=== PATIENT | female | born 1995 | race Caucasian/White ===

== ENCOUNTER → 2018-02-21 | Outpatient (CLI) | payer MEDICAID ==
--- NOTE | 2018-02-21 12:50 | Diagnostic Imaging Report ---
INDICATION: 30 weeks gestation. TECHNIQUE: Multiple real-time grayscale images were obtained over the gravid uterus. COMPARISON: None. FINDINGS: There is a single living intrauterine in a cephalic presentation. There is a normal volume of amniotic fluid. The placenta is anterior. There is no previa. The anatomical survey is unremarkable. Heart rate is 129 beats per minute and regular. There are no adnexal masses. The biometry correlates with a gestational age of 33 weeks 0 days. There is a three-vessel cord and four-chamber heart. IMPRESSION: Single living intrauterine with sonographically estimated gestational age of 33 weeks 0 days and estimated date of confinement of April 11, 2018. Biometrical measurements are as follows: Biparietal 8.38 cm, age 33 weeks 6 days. Head circumference 30.32 cm, age 33 weeks 5 days. Abdominal circumference 27.64 cm, age 31 weeks 5 days. Femur length 6.26 cm, age 32 weeks 3 days. Sonographic estimate age: 33 weeks 0 days. Sonographic estimated date of delivery: 04/11/18. Estimated Weight: 1942 gm (+/- 284 gm). LMP percentile: 48%. heart rate: 129 beats per minute. number: 1 of 1. Dictated by: Dictated on workstation # [id number]
== END ==
LOC: RAD 09:54
PROVIDERS: ATTEND Obstetrics & Gynecology
DX: Z36.89 Encounter for other specified antenatal screening (principal); Z3A.33 33 weeks gestation of pregnancy
CPT/HCPCS: 76805

== ENCOUNTER → 2018-03-28 | Outpatient (CLI) | payer MEDICAID ==
--- NOTE | 2018-03-28 10:47 | Diagnostic Imaging Report ---
INDICATION: Gestational diabetes. TECHNIQUE: Multiple real-time grayscale images were obtained over the gravid uterus. COMPARISON: 03/03/2018. FINDINGS: There is a single live fetus in a cephalic presentation. heart rate is recorded at 152 beats per minute. Placenta is anterior. Amniotic fluid index is 11.5 cm. Biophysical profile score is normal at 8 out 8. Biometrical measurements are as follows: Biparietal 9.4 cm, age 38 weeks 3 days. Head circumference 34.17 cm, age 39 weeks 3 days. Abdominal circumference 33.09 cm, age 37 weeks 0 days. Femur length 7.07 cm, age 36 weeks 2 days. Sonographic estimate age: 37 weeks 6 days. Sonographic estimated date of delivery: 04/12/2018. Estimated Weight: 3151 gm (+/- 460 gm). LMP percentile: 62%. heart rate: 152 beats per minute. number: 1 of 1. IMPRESSION: Single live IUP at approximately 38 weeks gestational age demonstrating normal interval growth when compared with exam from 02/21/2018. Biophysical profile score is normal at 8 out of 8. Dictated by: Dictated on workstation # [id number]
== END ==
LOC: RAD 09:35
PROVIDERS: ATTEND Obstetrics & Gynecology
DX: O24.410 Gestational diabetes mellitus in pregnancy, diet controlled (principal); Z3A.38 38 weeks gestation of pregnancy
CPT/HCPCS: 76805; 76819

== ENCOUNTER → 2018-04-10 | Outpatient (CLI) | payer MEDICAID ==
--- NOTE | 2018-04-10 13:39 | Diagnostic Imaging Report ---
INDICATION: Gestational diabetes. TECHNIQUE: Multiple real-time grayscale images were obtained over the gravid uterus. COMPARISON: 02/21/2018, 03/28/2018 and 04/01/2018. FINDINGS: The previous biophysical profile score of 04/01/2018 noted a single live fetus in cephalic presentation. The biophysical profile score was 8 out of 8 and within normal limits. On this exam, the fetus is again visualized. The fetus remains in cephalic presentation. heart motion was noted and a rate of 155 bpm was recorded. The biophysical profile score is still 8 out of 8 and within normal limits. However, the amniotic fluid index is 7.35 cm (normal 8-22 cm). The reason for the mild oligohydramnios is not certain. IMPRESSION: 1. There is a single live fetus in cephalic presentation. 2. The biophysical profile score is 8 out of 8 and remains within normal limits. 3. Mild oligohydramnios has developed in the interval since the prior exam. Biometrical measurements are as follows: Biparietal 10.05 cm, age 41 weeks 3 days. Head circumference 35.51 cm, age 41 weeks 4 days. Abdominal circumference 32.41 cm, age 36 weeks 3 days. Femur length 7.42 cm, age 38 weeks 0 days. Sonographic estimate age: 39 weeks 3 days. Sonographic estimated date of delivery: 04/14/2018. Estimated Weight: 3331 gm (+/- 486 gm). LMP percentile: 43%. heart rate: 155 beats per minute. number: 1 of 1. Dictated by: Dictated on workstation # [id number]
== END ==
LOC: RAD 11:41
PROVIDERS: ATTEND Obstetrics & Gynecology
DX: O24.410 Gestational diabetes mellitus in pregnancy, diet controlled (principal); O41.03X0 Oligohydramnios, third trimester, not applicable or unspecified; O26.893 Other specified pregnancy related conditions, third trimester; M54.5 Low back pain; Z3A.39 39 weeks gestation of pregnancy
CPT/HCPCS: 76805; 76819

== ENCOUNTER 2018-04-15 02:05 | Inpatient (IN) | payer MEDICAID ==
[2018-04-15] VITALS (45 sets, daily range): BP systolic 90–137; BP diastolic 52–78
[~2018-04-15] VITALS: Ht 157.5 cm; Wt 94.8 kg
--- NOTE | 2018-04-15 07:46 | NUR ---
HETAL CARTY presented to unit via ambulatory from home accompanied by signifant other with c/o INDUCTION @ 39weeks. HETAL CARTY weighed, gowned, voided, and to bed. EFHM and TOCO applied, VS taken. HETAL CARTY oriented to bed controls, call light, TV, heat, and A/C controls.
--- OUTSIDE RECORDS SUMMARY | 2018-04-15 08:02 | XMS REPORT | CCD ---
Author Author YAZAN BOATENG Organization Unknown Address [address] [place], [place] [id number] Care Team Providers Care Retanner Name Role Phone WALTER HALL DO Attphys Vital Signs Vital Sign Value Unit Date/Time Recent/Initial? Weight Measured 203 lbs 08/24/2015 00:05 Initial VS Height 62 in 08/24/2015 00:05 Initial VS BMI (Body Mass Index) 37.13 kg/m^2 08/24/2015 00:05 Initial VS BSA (Body Surface Area) 2.01 m^2 08/24/2015 00:05 Initial VS BP Systolic 131 mmHg 08/24/2015 00:15 Initial VS BP Diastolic 84 mmHg 08/24/2015 00:15 Initial VS Respiratory Rate 16 bpm 08/24/2015 00:15 Initial VS Heart Rate 94 bpm 08/24/2015 00:15 Initial VS Body Temperature 96.8 degrees 08/24/2015 00:15 Initial VS O2 % BldC Oximetry 98 % 08/24/2015 21:00 Initial VS BP Systolic 136 mmHg 08/26/2015 14:15 Most Recent VS BP Diastolic 81 mmHg 08/26/2015 14:15 Most Recent VS Respiratory Rate 18 bpm 08/26/2015 14:15 Most Recent VS Heart Rate 99 bpm 08/26/2015 14:15 Most Recent VS O2 % BldC Oximetry 98 % 08/26/2015 14:15 Most Recent VS Body Temperature 98.1 degrees 08/26/2015 14:15 Most Recent VS Allergies Allergy Code Allergy Type Reaction Status No Known Drug Allergies 0 No known drug allergies Active Procedures Procedure Code Procedure Type Date Delivery of Products of Conception, External Approach [id number] ICD -10 PCS 08/24/2015 Division of Female Perineum, External Approach [id number] ICD-10 PCS 08/24/[address] 08/25/2015 TYPE AND SCREEN 32225350 SNOMED CT 08/24/2015 CBC W/ AUTO DIFF (RFLX MAN DIFF IF IND) 4310708 SNOMED CT 08/24/2015 ^CBC W/AUTO DIFF 6434508 SNOMED CT 08/24/2015 History of Immunizations Unknown or Not Available. Problems Problem Code Start Date Resolved Date Status Vaginal delivery 525451871 Active Results CBC W/ AUTO DIFF (RFLX MAN DIFF IF IND) - Collect Date/Time: 08/23/2015 23:45 Test Name Code Test Result Test Units Test Ref Range WBC 73950-5 13.4 TH/CMM L=4.5 H=10.8 RBC 789-8 4.00 ML/CMM L=4.20 H=5.40 HGB 718-7 11.3 G/DL L=12.0 H=16.0 HCT 4544-3 33.8 % L=37.0 H=47.0 MCV 85 FL L=81 H=99 MCH 28.3 PG L=27.0 H=33.0 MCHC 33.4 G/DL L=31.0 H=36.0 RDW SD 44 FL L=36 H=50 RDW CV 14.6 % L=0.0 H=14.8 MPV 9.7 FL L=9.3 H=12.5 PLT 777-3 323 TH/CMM L=130 H=440 NRBC# 0.00 TH/CMM L=0.00 H=0.00 NRBC% 0.0 /100WBC L=0.0 H=2.0 %NEUT 73.4 % %LYMP 19.7 % %MONO 5.3 % %EOS 0.7 % %BASO 0.2 % #NEUT 9.84 TH/CMM L=2.10 H=8.20 #LYMP 2.64 TH/CMM L=0.90 H=5.20 #MONO 0.71 TH/CMM L=0.16 H=1.00 #EOS 0.09 TH/CMM L=0.00 H=0.80 #BASO 0.03 TH/CMM L=0.00 H=0.20 MANUAL DIFF NOT IND N/A HEMOGRAM - Collect Date/Time: 08/25/2015 07:10 Test Name Code Test Result Test Units Test Ref Range WBC 82166-4 17.3 TH/CMM L=4.5 H=10.8 RBC 789-8 3.16 ML/CMM L=4.20 H=5.40 HGB 718-7 8.8 G/DL L=12.0 H=16.0 HCT 4544-3 27.1 % L=37.0 H=47.0 MCV 86 FL L=81 H=99 MCH 27.8 PG L=27.0 H=33.0 MCHC 32.5 G/DL L=31.0 H=36.0 RDW SD 46 FL L=36 H=50 RDW CV 14.7 % L=0.0 H=14.8 MPV 9.6 FL L=9.3 H=12.5 PLT 777-3 260 TH/CMM L=130 H=440 NRBC# 0.00 TH/CMM L=0.00 H=0.00 NRBC% 0.0 /100WBC L=0.0 H=2.0 TYPE AND SCREEN - Collect Date/Time: 08/23/2015 23:45 Test Name Code Test Result Test Units Test Ref Range ABO/Rh Type A Positive N/A Antibody Screen-Gel Negative N/A Active Medications Medication Code Dose Units Frequency Route Modification Start Date/Time PATIENT BEING DISCHARGED TODAY, EDUCATE 12764225748 1 EA PRN PO 08/26/2015 14:38 FERROUS SULFATE 325MG TABLET 401589 325 MG ACBID PO 08/25/2015 16:35 DERMOPLAST AEROSOL 33405601816 1 EA PRN TOPICAL 08/24/2015 16:35 DIPHENHYDRAMINE (BENADRYL) CAP : 25 MG 3932104 25 MG PRN PO 08/24/2015 16:35 DOCUSATE SODIUM 100 MG [COLACE] CAPSULE 1902256 100 MG PRN PO 08/24/2015 16:35 FLUVIRIN (INFLUENZA) VACCINE 0.5ML/DOSE 9727703 0.5 ML X1 IM 08/24/2015 16:35 IBUPROFEN (MOTRIN) TAB:800 MG 306380 800 MG Q8H PO 08/24/2015 16:35 LANOLIN HYDROUS GRX TOPICAL OINTMENT 556626 1 EA PRN TOPICAL 08/24/2015 16:35 MMR II VACCINE 0.5ML DOSE: 10VIALS/BX 423723 0.5 ML PRN SQ 08/24/2015 16:35 PERCOCET 5/325 MG TABLET (ROXICET) 7502383 1 TAB PRN PO 08/24/2015 16:35 TETANUS DIPHTH PERTUSSIS [ADACEL] VIAL 4059700 0.5 ML X1 IM 08/24/2015 16:35 TUCKS PADS (WITCH ZANE PADS) 00507861962 1 EA PRN TOPICAL 08/24/2015 16:35 ZOLPIDEM [AMBIEN] TABLET : 5 MG 146354 5 MG PRN PO 08/24/2015 16:35 NS + PITOCIN IV 500ML [PREDEFINED] 4420161 CONT IV 08/24/2015 00:14 ~~ NACL 0.9% 500 ML IV BAG (7983-03) 351283 500 ML ~~ OXYTOCIN [PITOCIN]: 10 UNITS/ML 8403652 30 UNITS LIDO 2% UROJECT 10 ML 6405993 1 EA X1 TOPICAL 08/24/2015 00:13 MAALOX EXTRA STRENGTH LIQUID: PER ML 631123 30 ML PRN PO 08/24/2015 00:13 METOCLOPRAMIDE [REGLAN] INJ: 10MG/2ML 935175 10 MG PRN IVP 08/24/2015 00:13 PROMETHAZINE [PHENERGAN] INJ 25 MG/ML 281086 6.25 MG PRN IVP 08/24/2015 00:13 TERBUTALINE [BRETHINE] INJ 1 MG/ML VIAL 588615 0.25 MG X1 SUB Q 08/24/2015 00:13 BUTORPHANOL [STADOL] INJ 2 MG/ML VIAL 8580632 1 MG PRN IVP 08/24/2015 00:12 MORPHINE INJ: 10MG/ML 1ML SYR (OR) 3608289 5 MG X1 IVP 08/24/2015 00:12 MORPHINE INJ: 10MG/ML 1ML SYR (OR) 7685108 5 MG X1 IM 08/24/2015 00:12 ONDANSETRON [ZOFRAN] INJ 4 MG/2 ML VIAL 8133823 4 MG PRN SIVP 08/24/2015 00:12 ZOLPIDEM [AMBIEN] TABLET : 5 MG 067980 5 MG PRN PO 08/24/2015 00:12 ACETAMINOPHEN [TYLENOL] TABS 325MG 699694 650 MG PRN PO 08/24/2015 00:11 LR 1000ML IV [PREDEFINED] 225995 CONT IV IV 08/24/2015 00:11 ~~ LR 1000 ML (7953) IV BAG 435560 3939 ML Medications Administered During Visit Medication Dose Units Frequency Route Date/ Time of Last Dose IBUPROFEN (MOTRIN) TAB:800 MG 800 MG Q8H PO 08/26/2015 14:22 FERROUS SULFATE 325MG TABLET 325 MG ACBID PO 08/26/2015 08:39 PERCOCET 5/325 MG TABLET (ROXICET) 1 TAB PRN PO 08/25/2015 02:24 Encounters Encounter Diagnosis Diagnosis Code Start Date Other immediate hemorrhage O721 08/24/2015 Social History Smoking Status Code Start Date End Date Never smoker [id number] Patient Decision Aids Unknown or Not Available. Discharge Instructions You were admitted to [facility] on 08/24/2015 00:03 with a principal diagnosis of Other immediate hemorrhage You had the following procedures done: Delivery of Products of Conception, External Approach Division of Female Perineum, External Approach You had the following tests done: CBC W/ AUTO DIFF (RFLX MAN DIFF IF IND) HEMOGRAM TYPE AND SCREEN You were discharged from [facility] on 08/26/2015 15:06 Should you have any questions prior to discharge, please contact a member of your healthcare team. If you have left the hospital and have any questions, please contact your primary care physician. DIET: REGULAR, Drink plenty of fluids, As tolerated, Increase fiber. Limit caffeinated beverages, Avoid alcohol. Eat high iron foods: grn vegs, red meats. HOME MEDICATION INSTRUCTIONS: Call doc before taking new or OTC meds. Continue taking your vitamins. BOWEL MOVEMENTS Stool softeners as needed, Avoid constipation. May take senokot, Milk of Magnesia. CONTROL Discuss with dr at 4-6 wk pp visit. EXERCISES-VAGINAL DELIVERY May resume in 1-2 weeks, Start slowly and increase. Post blues; Hormonal changes You may have emotional changes, You may be tearful. This shouldn't last more than 2-3 wks, Call physician if you are concerned. NOTIFY PHYSICIAN OF: Chills, fever, painful urination, foul- smelling vaginal discharge. bleeding more than a period, temperature is greater than 100.4. dizziness or fainting, Painful breasts, Red, hot and extremely HARD breasts. redness or drainage from incision, unrelieved pain with medication. nausea or vomiting, cough or shortness of breath. cramping or swelling of legs. RELEVANT CONTACT INFORMATION: [facility]: . FOLLOW-UP: Post visit: See in ___6___ wks, Call office for an appointment. TREATMENTS: Always keep incisional area dry & clean, Wash incision with soap and water. SPECIAL INSTRUCTIONS: If you have cold/canker sores:, do not kiss/nuzzle NB til lesions clear. DISCHARGED TO: Home. IMPORTANT: INSURE YOUR BABY! Provided info on need to insure baby!. SMOKING CESSATION: Smoking and second hand smoke is harmful, to your health. Smoking has been linked to cancer, cardiac disease, COPD, and asthma. For more information you can call:, 1-822-CUX-STOP, or 2-919-HLRF-[place]. A pamphlet on smoking was given to you, at admission. IF : Breastfeed on demand, Incr flds and cals to promote mlk prdctn. Avoid spicy/gas producing foods, Exprs milk every 3 -4 hrs if unable to BF. If breast engorgement occurs:, apply moist heat /massage/or icepacks. Wear supportive bra, Ensure areola latch 1-1.5 "past nipple. Observe for cracked and bleeding nipples. Use "soothies"for sore or cracked nipple. Use tea bags for sore or cracked nipples. Colostrum to nipples after each feed. ACTIVITIES: Refrain from smoking, Rest as possible. Limit walking,standing & stair climbing, No heavy lifting. Gradually resume normal activity. HYGIENE: May shower, Use roddy-bottle with Betasept:. after each urine and BM until flow stops. Change pads with each urination or BM. SEXUAL ACTIVITY Refrain from intercourse until pp exam. PATIENT PORTAL EDUCATION INFO PROVIDED? No...Please do so. PATIENT PORTAL DEMONSTRATION PERFORMED? No...Please do so. PERSONAL EFFECTS/VALUABLES SENT HOME: Yes. MODE OF TRANSPORTATION: Via wheelchair, to car. ACCOMPANIED BY: , placed in car seat. PATIENT/FAMILY UNDERSTANDS INSTRUCTIONS: Verbalizes. Chief Complaint and Reason For Visit Chief Complaint Date of Onset POSS LABOR Function Status Unknown or Not Available. Plan of Care Unknown or Not Available. Referral/Transition of Care Unknown or Not Available.
--- OUTSIDE RECORDS SUMMARY | 2018-04-15 08:02 | XMS REPORT | CCD ---
Author Author DOMINGO PATEL Unknown Address [address] [place] [address] Care Team Providers Care Torpedo Man Name Role Phone MODESTA DYER MD Attphys MODESTA DYER MD Prisurg Allergies Allergy Code Allergy Type Reaction Status No Known Drug Allergies 0 Drug allergy Active Active Medications Unknown or Not Available. Problems Problem Code Start Date Resolved Date Status Vaginal delivery 530353264 Active Procedures Procedure Code Procedure Type Date UA W/MICRO C&S IF IND 767293175 SNOMED CT 04/14/2016 CHLAMYDIA/GC AMPLIFIED DNA 263425549 SNOMED CT 04/14/2016 TEST URINE 882426189 SNOMED CT 04/14/2016 Results UA ROUTINE C&S IF IND - Collect Date/Time: 04/14/2016 04:29 Test Name Code Test Result Test Units Test Ref Range COLOR YELLOW N/A NL: YELLOW APPEARANCE HAZY N/A NL: CLEAR SPEC GRAV 1.025 N/A NL: 1.002 - 1.022 pH 6.5 N/A NL: 5 - 9 PROTEIN NEGATIVE N/A NL: NEGATIVE mg/dl GLUCOSE NEGATIVE N/A NL: NEGATIVE mg/dl KETONE 40 N/A NL: NEGATIVE mg/dl BILIRUBIN NEGATIVE N/A NL: NEGATIVE BLOOD NEGATIVE N/A NL: NEGATIVE NITRITE NEGATIVE N/A NL: NEGATIVE LEUK SCREEN NEGATIVE N/A NL: NEGATIVE MICRO INDICATED? NOT INDICATED N/A UA W/MICRO C&S IF IND - Collect Date/Time: 04/14/2016 04:29 Test Name Code Test Result Test Units Test Ref Range COLOR YELLOW N/A NL: YELLOW APPEARANCE HAZY N/A NL: CLEAR SPEC GRAV 1.025 N/A NL: 1.002 - 1.022 pH 6.5 N/A NL: 5 - 9 PROTEIN NEGATIVE N/A NL: NEGATIVE mg/dl GLUCOSE NEGATIVE N/A NL: NEGATIVE mg/dl KETONE 40 N/A NL: NEGATIVE mg/dl BILIRUBIN NEGATIVE N/A NL: NEGATIVE BLOOD NEGATIVE N/A NL: NEGATIVE NITRITE NEGATIVE N/A NL: NEGATIVE LEUK SCREEN NEGATIVE N/A NL: NEGATIVE WBC/HPF 0-5 N/A NL: NEGATIVE RBC/HPF RARE N/A NL: NEGATIVE CASTS/LPF NEGATIVE N/A NL: NEGATIVE CRYSTALS NEGATIVE N/A NL: NEGATIVE MUCOUS THRDS 3+++ N/A NL: NEGATIVE BACTERIA 1+ N/A NL: NEGATIVE EPITH CELLS 1+ SQUAMOUS N/A NL: NEGATIVE TRICHOMONAS NEGATIVE N/A NL: NEGATIVE YEAST NEGATIVE N/A NL: NEGATIVE CULT SET UP? NO N/A CHLAMYDIA/GC AMPLIFIED DNA - Collect Date/Time: 04/14/2016 04:40 Test Name Code Test Result Test Units Test Ref Range Neisseria Gonorrhoeae 11824-0 NEGATIVE N/A NEGATIVE Chlamydia Trachomatis 34284-1 NEGATIVE N/A NEGATIVE TEST URINE - Collect Date/Time: 04/14/2016 04:29 Test Name Code Test Result Test Units Test Ref Range TEST UR 2106-3 NEGATIVE N/A Function Status Unknown or Not Available. History of Immunizations Unknown or Not Available. Plan of Treatment Unknown or Not Available. Social History Smoking Status Code Start Date End Date Never smoker 900167050 Vital Signs Unknown or Not Available. Function Status Unknown or Not Available. Goals Unknown or Not Available. ASSESSMENTS Unknown or Not Available. Health Concerns Section Unknown or Not Available.
--- OUTSIDE RECORDS SUMMARY | 2018-04-15 08:02 | XMS REPORT | CCD ---
Author Author DOMINGO PATEL Unknown Address [address] [place], [place] [id number] Care Team Providers Care Manager Security Name Role Phone WALTER HALL DO Attphys [...] Delivery of Products of Conception, External Approach [id number] ICD -10 PCS 08/24/2015 Division of Female Perineum, External Approach [id number] ICD-10 PCS 08/24/[address] 08/25/2015 TYPE AND SCREEN 20250080 SNOMED CT 08/24/2015 CBC W/ AUTO DIFF (RFLX MAN DIFF IF IND) 0926913 SNOMED CT 08/24/2015 ^CBC W/AUTO DIFF 8478722 SNOMED CT 08/24/2015 History of Immunizations Unknown or Not Available. Problems Problem Code Start Date Resolved Date Status Vaginal delivery 826407331 Active Results CBC W/ AUTO DIFF (RFLX MAN DIFF IF IND) - Collect Date/Time: 08/23/2015 23:45 Test Name Code Test Result Test Units Test Ref Range WBC 36719-2 13.4 TH/CMM L=4.5 H=10.8 RBC 789-8 4.00 [...] Result Test Units Test Ref Range WBC 70272-0 17.3 TH/CMM L=4.5 H=10.8 RBC 789-8 3.16 [...] Start Date/Time PATIENT BEING DISCHARGED TODAY, EDUCATE 96643359176 1 EA PRN PO 08/26/2015 14:38 FERROUS SULFATE 325MG TABLET 427068 325 MG ACBID PO 08/25/2015 16:35 DERMOPLAST AEROSOL 80675240288 1 EA PRN TOPICAL 08/24/2015 16:35 DIPHENHYDRAMINE (BENADRYL) CAP : 25 MG 8852670 25 MG PRN PO 08/24/2015 16:35 DOCUSATE SODIUM 100 MG [COLACE] CAPSULE 6691499 100 MG PRN PO 08/24/2015 16:35 FLUVIRIN (INFLUENZA) VACCINE 0.5ML/DOSE 3439542 0.5 ML X1 IM 08/24/2015 16:35 IBUPROFEN (MOTRIN) TAB:800 MG 179306 800 MG Q8H PO 08/24/2015 16:35 LANOLIN HYDROUS GRX TOPICAL OINTMENT 545903 1 EA PRN TOPICAL 08/24/2015 16:35 MMR II VACCINE 0.5ML DOSE: 10VIALS/BX 202422 0.5 ML PRN SQ 08/24/2015 16:35 PERCOCET 5/325 MG TABLET (ROXICET) 7438534 1 TAB PRN PO 08/24/2015 16:35 TETANUS DIPHTH PERTUSSIS [ADACEL] VIAL 6919027 0.5 ML X1 IM 08/24/2015 16:35 TUCKS PADS (WITCH ZANE PADS) 77565199604 1 EA PRN TOPICAL 08/24/2015 16:35 ZOLPIDEM [AMBIEN] TABLET : 5 MG 882389 5 MG PRN PO 08/24/2015 16:35 NS + PITOCIN IV 500ML [PREDEFINED] 3592011 CONT IV 08/24/2015 00:14 ~~ NACL 0.9% 500 ML IV BAG (7983-03) 018686 500 ML ~~ OXYTOCIN [PITOCIN]: 10 UNITS/ML 7945275 30 UNITS LIDO 2% UROJECT 10 ML 1342513 1 EA X1 TOPICAL 08/24/2015 00:13 MAALOX EXTRA STRENGTH LIQUID: PER ML 494729 30 ML PRN PO 08/24/2015 00:13 METOCLOPRAMIDE [REGLAN] INJ: 10MG/2ML 205677 10 MG PRN IVP 08/24/2015 00:13 PROMETHAZINE [PHENERGAN] INJ 25 MG/ML 235478 6.25 MG PRN IVP 08/24/2015 00:13 TERBUTALINE [BRETHINE] INJ 1 MG/ML VIAL 304208 0.25 MG X1 SUB Q 08/24/2015 00:13 BUTORPHANOL [STADOL] INJ 2 MG/ML VIAL 6662088 1 MG PRN IVP 08/24/2015 00:12 MORPHINE INJ: 10MG/ML 1ML SYR (OR) 6387392 5 MG X1 IVP 08/24/2015 00:12 MORPHINE INJ: 10MG/ML 1ML SYR (OR) 1281164 5 MG X1 IM 08/24/2015 00:12 ONDANSETRON [ZOFRAN] INJ 4 MG/2 ML VIAL 3091766 4 MG PRN SIVP 08/24/2015 00:12 ZOLPIDEM [AMBIEN] TABLET : 5 MG 200088 5 MG PRN PO 08/24/2015 00:12 ACETAMINOPHEN [TYLENOL] TABS 325MG 181731 650 MG PRN PO 08/24/2015 00:11 LR 1000ML IV [PREDEFINED] 599591 CONT IV IV 08/24/2015 00:11 ~~ LR 1000 ML (7953) IV BAG 136435 6675 ML Medications Administered During Visit Medication Dose [...] Code Start Date End Date Never smoker [id number] Patient Decision Aids Unknown or Not Available. Discharge Instructions You were admitted to [facility] on 08/24/2015 00:03 with a principal diagnosis of Other immediate hemorrhage You had the following procedures done: Delivery of Products of Conception, External Approach Division of Female Perineum, External Approach You had the following tests done: CBC W/ AUTO DIFF (RFLX MAN DIFF IF IND) HEMOGRAM TYPE AND SCREEN You were discharged from [facility] on 08/26/2015 15:06 Should you have any [...] swelling of legs. RELEVANT CONTACT INFORMATION: [facility]: . FOLLOW-UP: Post visit: See in [...] asthma. For more information you can call:, 2-188-UBQ-STOP, or 5-110-RATT-[place]. A pamphlet on smoking was given to [...]
--- OUTSIDE RECORDS SUMMARY | 2018-04-15 08:02 | XMS REPORT | CCD ---
Author Author RAN PATTERSON Organization Unknown Address [address] [facility] [address] [place], [place] [id number] Care Team Providers Care Pet Resort Concierge Name Role Phone HANDSHY ERELMER MD [place] [facility], [place] Prisurosie Vital Signs Unknown or Not Available. Allergies Allergy Code Allergy Type Reaction Status No Known Drug Allergies 0 No known drug allergies Active Procedures Procedure Code Procedure Type Date COMPREHENSIVE METABOLIC PANEL 385418180 SNOMED CT 2015 CBC W/ AUTO DIFF (RFLX MAN DIFF IF IND) 1843710 SNOMED CT 04/25/2015 ^CBC W/AUTO DIFF [id number] SNOMED CT 04/25/2015 History of Immunizations Unknown or Not Available. Problems Unknown or Not Available. Results COMPREHENSIVE METABOLIC PANEL - Collect Date/Time: 04/25/2015 11:20 Test Name Code Test Result Test Units Test Ref Range GLUCOSE 2345-7 81 MG/DL L=70 H=100 SODIUM 2951-2 136 MEQ/L L=135 H=148 POTASSIUM 2823-3 3.7 MEQ/L L=3.5 H=5.3 CHLORIDE 2075-0 107 MEQ/L L=96 H=110 CO2 2028-9 22 MEQ/L L=22 H=29 BUN 3094-0 7 MG/DL L=8 H=22 CREATININE 2160-0 0.5 MG/DL L=0.6 H=1.6 SGOT/AST 1920-8 48 IU/L L=10 H=40 SGPT/ALT 1742-6 47 IU/L L=8 H=54 ALK PHOS 6768-6 65 IU/L L=35 H=115 TOTAL PROTEIN 2885-2 6.6 G/DL L=5.5 H=8.5 ALBUMIN 1751-7 3.7 G/DL L=3.1 H=5.4 TOTAL BILI 1975-2 0.2 MG/DL L=0.0 H=1.5 CALCIUM 47520-8 8.8 MG/DL L=8.2 H=10.6 AGE 19 yrs GFR NonAA 159 GFR AA 193 eGFR >60 N/A eGFR AA* >60 N/A CBC W/ AUTO DIFF (RFLX MAN DIFF IF IND) - Collect Date/Time: 04/25/2015 11:20 Test Name Code Test Result Test Units Test Ref Range WBC 58992-3 10.0 TH/CMM L=4.5 H=10.8 RBC 789-8 3.75 ML/CMM L=4.20 H=5.40 HGB 718-7 11.2 G/DL L=12.0 H=16.0 HCT 4544-3 33.1 % L=37.0 H=47.0 MCV 88 FL L=81 H=99 MCH 29.9 PG L=27.0 H=33.0 MCHC 33.8 G/DL L=31.0 H=36.0 RDW SD 41 FL L=36 H=50 RDW CV 12.9 % L=0.0 H=14.8 MPV 9.5 FL L=9.3 H=12.5 PLT 777-3 251 TH/CMM L=130 H=440 NRBC# 0.00 TH/CMM L=0.00 H=0.00 NRBC% 0.0 /100WBC L=0.0 H=2.0 %NEUT 74.9 % %LYMP 18.3 % %MONO 6.0 % %EOS 0.7 % %BASO 0.1 % #NEUT 7.47 TH/CMM L=2.10 H=8.20 #LYMP 1.83 TH/CMM L=0.90 H=5.20 #MONO 0.60 TH/CMM L=0.16 H=1.00 #EOS 0.07 TH/CMM L=0.00 H=0.80 #BASO 0.01 TH/CMM L=0.00 H=0.20 MANUAL DIFF NOT IND N/A Active Medications Medication Code Dose Units Frequency Route Modification Start Date/Time Doxycycline Monohydrate 100MG Oral Capsule [id number] 100 MILLIGRAMS TWO TIMES A DAY BY MOUTH 07/09/2014 09: 07 Prescription Detail 100 MILLIGRAMS BY MOUTH TWO TIMES A DAY Ibuprofen 800MG Oral Tablet 936980 800 MILLIGRAMS NEEDED EVERY 8 HR BY MOUTH FOR PAIN 07/09/2014 09:07 Prescription Detail 800 MILLIGRAMS BY MOUTH NEEDED EVERY 8 HR FOR PAIN oxyCODONE And Acetaminophen 5MG-325MG Oral Tablet [id number] 1 EACH NEEDED EVERY 8 HR BY MOUTH FOR PAIN 07/09 09:07 Prescription Detail 1 EACH BY MOUTH NEEDED EVERY 8 HR FOR PAIN Medications Administered During Visit Unknown or Not Available. Encounters Encounter Diagnosis Diagnosis Code Start Date Asthenia [id number] 04/25/2015 Social History Smoking Status Code Start Date End Date Never smoker [id number] Patient Decision Aids Unknown or Not Available. Discharge Instructions You were admitted to [facility] on 04/25/2015 10:29 with a principal diagnosis of Weakness You had the following tests done: CBC W/ AUTO DIFF (RFLX MAN DIFF IF IND) COMPREHENSIVE METABOLIC PANEL You were discharged from [facility] on 04/25/2015 12:01 Should you have any questions prior to discharge, please contact a member of your healthcare team. If you have left the hospital and have any questions, please contact your primary care physician. Chief Complaint and Reason For Visit Chief Complaint Date of Onset GENERAL WEAKNESS 20 WEEKS PREG Function Status Unknown or Not Available. Plan of Care Unknown or Not Available. Referral/Transition of Care Unknown or Not Available.
--- OUTSIDE RECORDS SUMMARY | 2018-04-15 08:03 | XMS REPORT ---
Author Author Sirisha Alexander [facility] Address [address] [place], [place] [address] Care Team Providers Care Ostomy Care Nurse Name Role Phone Sirisha Alexander PCP Unavailable Allergies and Adverse Reactions Name Reaction Notes NO KNOWN DRUG ALLERGIES Plan of Treatment Planned Activity Comments Planned Date Planned Time Plan/Goal URINE TEST 02/02/2014 12:00 AM Medications Active Name Start Date Estimated Completion Date SIG Comments Vitamin oral tablet take 1 tablet by oral route once daily Name Start Date Expiration Date SIG Comments amoxicillin 500 mg oral capsule 06/27/2010 07/07/2010 take 1 capsule by oral route 3 times a day for 10 days Singulair 5 mg oral tablet,chewable 11/15/2010 chew 1 tablets by oral route daily at bedtime Discontinued Name Start Date Discontinued Date SIG Comments albuterol sulfate 90 mcg/actuation inhalation HFA aerosol inhaler 11/15/201011/14/2013 inhale 2 puffs by inhalation route at least 15 minutes before exertion Ocuflox 0.3 % ophthalmic drops 04/24/2011 11/14/2013 apply 1 drop into affected eye(s) by ophthalmic route every 4 hours for 2 days then 1 drop four times daily for 5 days ProAir HFA 90 mcg/actuation inhalation HFA aerosol inhaler 02/02/20142014 inhale 2 puffs by inhalation route every 6 hours as needed Tablet 28 mg iron- 800 mcg oral tablet 10/12/2014 PNV- OTC 06/25/2014 10/12/2014 1 PO qdaily pt not taking Problem List Not available. Vital Signs Date Time BP-Sys(mm[Hg] BP-Kitty(mm[Hg]) HR(bpm) RR(rpm) Temp WT HT HC BMI BSA BMI Percentile O2 Sat(%) 01/05/2015 10:15:00 AM 123 mmHg 57 mmHg 66 bpm 98.9 F 140 lbs 62 in 25.61 kg/m2 1.67 m2 82.9 % 10/12/2014 10:39:00 AM 125 mmHg 64 mmHg 73 bpm 98.2 F 153 lbs 62 in 27.9838 kg/m 1.7424 m 90.7 % 06/25/2014 10:28:00 AM 113 mmHg 70 mmHg 72 bpm 99 F 156 lbs 62 in 28.53 kg/m2 1.76 m2 92.1 % 05/29/2014 10:04:00 AM 142 mmHg 73 mmHg 87 bpm 18 rpm 98.2 F 155 lbs 62 in 28.3496 kg/m 1.7537 m 91.8 % 02/02/2014 8:11:00 AM 134 mmHg 70 mmHg 70 bpm 16 rpm 97.9 F 152 lbs 61 in 28.72 kg/m2 1.72 m2 92.8 % 97 % 11/14/2013 9:46:00 AM 115 mmHg 69 mmHg 59 bpm 97.3 F 154 lbs 61 in 29.0977 kg/m 1.7339 m 93.6 % 04/24/2011 8:34:00 AM 108 mmHg 62 mmHg 70 bpm 18 rpm 96.8 F 139 lbs 61 in 26.26 kg/m2 1.65 m2 91.4 % 98 % 11/08/2010 10:10:00 AM 100 mmHg 58 mmHg 56 bpm 22 rpm 96.3 F 135 lbs 98 % 06/27/2010 9:03:00 AM 111 bpm 22 rpm 99.6 F 134 lbs 61 in 25.32 kg/m2 1.62 m2 90.6 % 98 % 08/03/2009 9:52:00 AM 110 mmHg 70 mmHg 71 bpm 18 rpm 97.8 F 129.375 lbs 61 in 24.4449 kg/m 1.5892 m 90.1 % 99 % 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 Tobacco Former smoker Quit 01-10-15 History of Procedures Date Ordered Description Order Status 11/08/2010 12:00 AM BREATHING CAPACITY TEST Reviewed 11/08/2010 12:00 AM Holter monitoring, 24-hour, continuous original ECG waveform, recording and storage without superimposition scanning utilizing a device capable of producing a full miniaturized printout; includes recording, microprocessor-based analysis with report, physician review and interpretation Reviewed 01/05/2015 10:26 AM URINE TEST Reviewed 01/05/2015 12:00 AM SPECIMEN HANDLING OFFICE-LAB Reviewed 01/05/2015 12:00 AM N.GONORRHOEAE DNA AMP PROB Returned 01/05/2015 12:00 AM CHLAMYDIA CULTURE Returned 01/05/2015 12:00 AM HIV-1ANTIBODY Returned 01/05/2015 12:00 AM URINALYSIS AUTO W/SCOPE Returned 01/05/2015 12:00 AM OBSTETRIC PANEL Returned 03/18/2015 12:00 AM ALPHA-FETOPROTEIN SERUM Returned 03/18/2015 12:00 AM CHORIONIC GONADOTROPIN TEST Returned 03/18/2015 12:00 AM CHORIONIC GONADOTROPIN ASSAY Returned 04/14/2015 12:00 AM OB US >/=14 WKS SNGL FETUS Returned 04/14/2015 12:00 AM US EXAM PELVIC COMPLETE Returned 06/10/2015 12:00 AM Type and screen Returned 06/10/2015 12:00 AM GLUCOSE TOLERANCE TEST (GTT) Returned 06/10/2015 12:00 AM COMPLETE CBC W/AUTO DIFF WBC Returned 07/22/2015 12:00 AM TDAP VACCINE 7 YRS/> IM Reviewed 07/22/2015 12:00 AM IMMUNIZATION ADMIN Reviewed 08/05/2015 12:00 AM CULTURE SCREEN ONLY Returned 08/03/2009 12:00 AM RBC SED RATE AUTOMATED Reviewed 08/03/2009 12:00 AM COMPLETE CBC W/AUTO DIFF WBC Reviewed 08/03/2009 12:00 AM ASSAY OF LEAD Reviewed 08/03/2009 12:00 AM X-RAY EXAM TRUNK SPINE STAND Reviewed 11/14/2013 12:00 AM CHORIONIC GONADOTROPIN TEST Returned 06/27/2010 12:00 AM CULTURE OTHR SPECIMN AEROBIC Reviewed 06/27/2010 12:00 AM Decadron Inj.1mg-(C'marie) - 8mg IM x 1 Reviewed 05/29/2014 10:08 AM URINE TEST Reviewed 06/25/2014 10:36 AM URINE TEST Reviewed 06/25/2014 12:00 AM N.GONORRHOEAE DNA AMP PROB Returned 06/25/2014 12:00 AM CHLAMYDIA CULTURE Returned 06/25/2014 12:00 AM HIV-1ANTIBODY Returned 06/25/2014 12:00 AM URINALYSIS AUTO W/SCOPE Returned 06/25/2014 12:00 AM OBSTETRIC PANEL Returned 06/25/2014 12:00 AM US PREG UTERUS REAL TIME W/IMAGE DCMTN TRANSVAG Returned 07/03/2014 12:00 AM US EXAM PELVIC COMPLETE Returned 07/03/2014 12:00 AM OB US < 14 WKS SINGLE FETUS Returned 10/12/2014 12:00 AM US EXAM PELVIC COMPLETE Reviewed 10/20/2014 12:00 AM US EXAM PELVIC COMPLETE Returned Results Summary Data and Description Results 08/03/2009 2:26 PM SEDRATE 29.0 mm/hrWBC 6.8 RDW CV 13.30 %MPV 9.90 fLPLT 330 % NEUT 43.10 %%LYMP 41.0 %%MONO 7.20 %%EOS 8.40 %%BASO 0.30 %#NEUT 2.91 #LYMP 2.77 #MONO 0.49 #EOS 0.57 #BASO 0.02 EOS 9.0 %RBC 4.20 HGB 11.80 g/dLHCT 35.70 % MCV 85.0 fLMCH 28.10 pgMCHC 33.10 g/dL 11/14/2013 10:18 AM BETA HCG QUANT 1347.0 mIU/mL 05/29/2014 10:08 AM HCG Ur Ql positive 06/25/2014 10:36 AM HCG Ur Ql positive 06/25/2014 12:30 PM WBC 6.4 RBC 4.58 HGB 13.10 g/dLHCT 39.20 %MCV 86.0 fLMCH 28.60 pgMCHC 33.40 g/dLRDW CV 13.60 %MPV 9.50 fLPLT 344 %NEUT 58.20 %%LYMP 33.50 %%MONO 6.30 %%EOS 1.70 %%BASO 0.30 %#NEUT 3.72 #LYMP 2.14 #MONO 0.40 #EOS 0.11 #BASO 0.02 RPR Non Reactive HIV AG/AB COMBO 0.16 HBsAg Screen Negative Rubella Antibodies, IgG 1.75 Index 06/25/2014 12:32 PM COLOR YELLOW APPEARANCE CLOUDY SPEC GRAV 1.020 pH 8.0 PROTEIN NEGATIVE GLUCOSE NEGATIVE KETONE NEGATIVE BILIRUBIN NEGATIVE BLOOD NEGATIVE NITRITE NEGATIVE LEUK SCREEN NEGATIVE CASTS/LPF NEGATIVE CRYSTALS 3+++ AMORPHOUS MUCOUS THRDS NEGATIVE BACTERIA FEW EPITH CELLS 1+ SQUAMOUS TRICHOMONAS NEGATIVE YEAST NEGATIVE 07/09/2014 6:40 AM WBC 10.1 RBC 3.99 HGB 11.40 g/dLHCT 34.0 %MCV 85.0 fLMCH 28.60 pgMCHC 33.50 g/dLRDW CV 13.20 %MPV 9.50 fLPLT 273 GLUCOSE 132.0 mg/ dLSODIUM 139.0 mmol/LPOTASSIUM 4.0 mmol/LCHLORIDE 110.0 mmol/LCO2 21.0 mmol/ LBUN 8.0 mg/dLCREATININE 0.60 mg/dLCALCIUM 8.90 mg/dLeGFR >60 mL/min/1.73 m2 01/05/2015 10:26 AM Test, Urine positive 01/05/2015 12:06 PM WBC 7.4 RBC 4.29 HGB 12.60 g/dLHCT 37.0 %MCV 86.0 fLMCH 29.40 pgMCHC 34.10 g/dLRDW CV 13.50 %MPV 9.90 fLPLT 299 %NEUT 62.60 %%LYMP 27.80 %%MONO 7.0 %%EOS 2.20 %%BASO 0.40 %#NEUT 4.65 #LYMP 2.06 #MONO 0.52 #EOS 0.16 #BASO 0.03 COLOR YELLOW APPEARANCE CLEAR SPEC GRAV 1.020 pH 7.0 PROTEIN NEGATIVE GLUCOSE NEGATIVE mg/dLKETONE NEGATIVE BILIRUBIN NEGATIVE BLOOD NEGATIVE NITRITE NEGATIVE LEUK SCREEN NEGATIVE CASTS/LPF NEGATIVE /LPFCRYSTALS 2 ++ AMORPHOUS MUCOUS THRDS 2++ BACTERIA FEW EPITH CELLS FEW SQUAMOUS / HPFTRICHOMONAS NEGATIVE YEAST NEGATIVE RPR Non Reactive HBsAg Screen Negative HIV AG/AB COMBO 0.13 Rubella Antibodies, IgG 1.95 Index 03/18/2015 3:52 PM AFP Value 0.0382 ug/mLAFP MoM 1.17 hCG Value 39993.0 mIU/ mLhCG MoM 0.89 uE3 Value 1.430 ng/mLuE3 MoM 1.62 KITTY Value 122.770 pg/mLDIA MoM 0.72 OSBR Risk 1 IN 7137 DSR (Second Trimester) 1IN [address]12 DSR (By Age) 1 IN 1167 T18 Risk Not increased T18 (By Age) 1:4548 06/10/2015 3:42 PM WBC 11.7 RBC 3.98 HGB 11.80 g/dLHCT 35.0 %MCV 88.0 fLMCH 29.60 pgMCHC 33.70 g/dLRDW CV 12.60 %MPV 9.10 fLPLT 320 %NEUT 74.80 %%LYMP 17.50 %%MONO 5.50 %%EOS 0.90 %%BASO 0.30 %#NEUT 8.72 #LYMP 2.04 #MONO 0.64 #EOS 0.10 #BASO 0.04 07/26/2015 11:35 AM COLOR YELLOW APPEARANCE CLEAR SPEC GRAV 1.020 pH 7.0 PROTEIN NEGATIVE GLUCOSE NEGATIVE mg/dLKETONE NEGATIVE BILIRUBIN NEGATIVE BLOOD NEGATIVE NITRITE NEGATIVE LEUK SCREEN NEGATIVE 08/11/2015 11:50 AM AMNISURE ROM NEGATIVE History Of Immunizations Name Date Admin Mfg Name Mfg Code Trade Name Lot# Route Inj Vis Given Vis Pub CVX Tdap 07/22/2015 [employer] SKB BOOSTRIX [id number] Intramuscular Right Deltoid 07/22/2015 05/05/2014 115 History of Past Illness Name Date of Onset Comments *No known medical problems Thoracic Spine Pain Aug 03 2009 9:59AM Scoliosis, Idiopathic Aug 03 2009 9:59AM Tonsillitis, Acute Jun 27 2010 9:03AM Wheezing Nov 08 2010 10:11AM Palpitations Nov 08 2010 10:11AM Vitiligo Nov 08 2010 10:11AM Acute Conjunctivitis Apr 24 2011 8:35AM Acute Upper Respiratory Infection Apr 24 2011 8:35AM Threatened Nov 14 2013 9:53AM Contraception management Feb 02 2014 8:14AM Asthma Feb 02 2014 8:14AM Amenorrhea May 29 2014 10:08AM test confirmed positive Jun 25 2014 10:36AM Teen Jun 25 2014 10:36AM Right Ovarian cyst Jun 25 2014 10:36AM Ovarian Cyst Jun 25 2014 2:07PM Known or suspected abnormality affecting management of mother Jun 25 2014 2:07PM Pelvic Pain Oct 12 2014 10:44AM Pelvic Pain - Right Oct 12 2014 10:44AM Pelvic Pain Oct 19 2014 1:26PM test confirmed positive Jan 05 2015 10:26AM , Other Normal Mar 18 2015 3:00PM Ovarian cyst affecting in second trimester, antepartum Mar 18 2015 3:00PM Normal in multigravida in second trimester Jun 10 2015 2:37PM Need for Tdap vaccine Jul 22 2015 3:58PM Group B Strep Screening, Aug 05 2015 4:37PM Normal in multigravida in third trimester Aug 05 2015 4:37PM Payers Insurance Name Company Name Plan Name Plan Number Policy Number Policy Group Number Start Date [facility] [id number] N/A [facility] [id number] N/A [employer] [place] [id number] Thursday, 2009 [employer] [place] [id number] Thursday, 2009 History of Encounters Visit Date Visit Type Provider 08/13/[address] Sirisha Alexander MD 08/05/[address] Sirisha Alexander MD 07/22/[address] Sirisha Alexander MD 07/08/[address] Sirisha Alexander MD 06/10/[address] Sirisha Alexander MD 05/13/[address] Sirisha Alexander MD 04/15/[address] Sirisha Alexander MD 03/18/[address] Sirisha Alexander MD 02/18/[address] Sirisha Alexander MD 01/21/[address] Sirisha Alexander MD 01/05/2015 Office visit Rupali Carter ROTARY KILN OPERATOR 10/12/2014 Office visit 10/12/2014 Office visit Rupali Carter ROTARY KILN OPERATOR 07/08/2014 [facility] Xander Knox MD 06/25/2014 Office visit 06/25/2014 Office visit Xander Knox MD 05/29/2014 Office visit Rupali Carter ROTARY KILN OPERATOR 02/02/2014 Office visit Dionisio Payton DO 11/14/2013 Office visit Rupali Carter ROTARY KILN OPERATOR 04/24/2011 Office visit BRENT PEÑA ROTARY KILN OPERATOR 11/08/2010 Office visit Brent Peña ROTARY KILN OPERATOR 06/27/2010 Office visit Brent Peña ROTARY KILN OPERATOR 08/03/2009 Office visit Brent Peña ROTARY KILN OPERATOR
--- OUTSIDE RECORDS SUMMARY | 2018-04-15 08:03 | XMS REPORT ---
Author Author Sirisha Alexander [facility] Address [address] [place], [place] [address] Care Team Providers Care Trim Setter Helper Name Role Phone Sirisha Alexander PCP Unavailable [...] AM COMPLETE CBC W/AUTO DIFF WBC Returned 08/03/2009 12:00 AM RBC SED RATE [...] Value 0.0382 ug/mLAFP MoM 1.17 hCG Value 17355.0 mIU/ mLhCG MoM 0.89 uE3 Value 1.430 ng/mLuE3 MoM 1.62 KITTY Value 122.770 pg/mLDIA MoM 0.72 OSBR Risk 1 IN 7137 DSR (Second Trimester) 1IN [address]60 DSR (By Age) 1 IN 1167 T18 Risk Not increased T18 (By Age) 1:4548 06/10/2015 3:42 PM WBC 11.7 RBC 3.98 HGB 11.80 g/dLHCT 35.0 %MCV 88.0 fLMCH 29.60 pgMCHC 33.70 g/dLRDW CV 12.60 %MPV 9.10 fLPLT 320 %NEUT 74.80 %%LYMP 17.50 %%MONO 5.50 %%EOS 0.90 %%BASO 0.30 %#NEUT 8.72 #LYMP 2.04 #MONO 0.64 #EOS 0.10 #BASO 0.04 History Of Immunizations Not available. History of Past Illness Name Date of [...] in second trimester Jun 10 2015 2:37PM Payers Insurance Name Company Name Plan Name Plan Number Policy Number Policy Group Number Start Date [facility] [id number] N/A [facility] [id number] N/A [employer]BS [employer] [id number] Thursday, 2009 [employer]BS [employer] [place] [id number] Thursday, 2009 History of Encounters Visit Date Visit Type Provider 07/08/[address] Sirisha Alexander MD 06/10/[address] Sirisha Alexander MD 05/13/[address] Sirisha Alexander MD 04/15/[address] Sirisha Alexander MD 03/18/[address] Sirisha Alexander MD 02/18/[address] Sirisha Alexander MD 01/21/[address] Sirisha Alexander MD 01/05/2015 Office visit Rupali Carter [employer]LESO[employer] CRM DEVELOPER 10/12/2014 Office visit 10/12/2014 Office visit Rupali Carter PEOPLESOFT CRM DEVELOPER 07/08/2014 [facility] Xander Knox MD 06/25/2014 Office visit 06/25/2014 Office visit Xander Knox MD 05/29/2014 Office visit Rupali Carter PEOPLESOFT CRM DEVELOPER 02/02/2014 Office visit Dionisio Payton DO 11/14/2013 Office visit Rupali aCrter PEOPLESOFT CRM DEVELOPER 04/24/2011 Office visit BRENT PEÑA [employer]OPLESOFT CRM DEVELOPER 11/08/2010 Office visit Brent Peña PEOPLESOFT CRM DEVELOPER 06/27/2010 Office visit Brent Peña PEOPLESOFT CRM DEVELOPER 08/03/2009 Office visit Brent Peña [employer]OPLESO[employer] CRM DEVELOPER
--- OUTSIDE RECORDS SUMMARY | 2018-04-15 08:04 | XMS REPORT ---
Author Author Sirisha Alexander [facility] Address [address] [place], [place] [address] Care Team Providers Care Porcelain Technician Name Role Phone Sirisha Alexander PCP Unavailable [...] inhalation route every 6 hours as needed 28-0.8 mg oral tablet 10/12/2014 PNV- OTC 06/25/2014 10/12/2014 [...] Returned 01/05/2015 12:00 AM OBSTETRIC PANEL Returned 08/03/2009 12:00 AM RBC SED RATE [...] COMBO 0.13 Rubella Antibodies, IgG 1.95 Index History Of Immunizations Not available. History of [...] test confirmed positive Jan 05 2015 10:26AM Payers Insurance Name Company Name Plan Name Plan Number Policy Number Policy Group Number Start Date [facility] [id number] Thursday, 2009 [facility] [id number] Thursday, 2009 [facility] [id number] N/A [facility] [id number] N/A History of Encounters Visit Date Visit Type Provider 02/18/[address] Sirisha Alexander MD 01/21/[address] Sirisha Alexander MD 01/05/2015 Office visit Rupali Carter BEAMER HAND 10/12/2014 Office visit Rupali Carter BEAMER HAND 07/08/2014 [facility] Xander Knox MD 06/25/2014 Office visit Xander Knox MD 05/29/2014 Office visit Rupali Carter BEAMER HAND 02/02/2014 Office visit Dionisio Payton DO 11/14/2013 Office visit Rupali Carter BEAMER HAND 04/24/2011 Office visit BRENT PEÑA BEAMER HAND 11/08/2010 Office visit Brent Peña BEAMER HAND 06/27/2010 Office visit Brent Peña BEAMER HAND 08/03/2009 Office visit Brent Peña BEAMER HAND
--- OUTSIDE RECORDS SUMMARY | 2018-04-15 08:04 | XMS REPORT ---
Author Dionisio Farooq [facility] Address [address] [place], [place] [phone] Care Team Providers Care Structural Mill Supervisor Name Role Phone Dionisio Payton PCP Unavailable Allergies and Adverse Reactions Name Reaction Notes NO KNOWN DRUG ALLERGIES Plan of Treatment Planned Activity Comments Planned Date Planned Time Plan/Goal URINE TEST 02/02/2014 12:00 AM Medications Active Name Start Date Estimated Completion Date SIG Comments ProAir HFA inhalation HFA aerosol inhaler 90 mcg/actuation 02/02/2014 inhale 2 puffs by inhalation route every 6 hours as needed oral tablet 28-0.8 mg PNV- OTC 06/25/2014 1 PO qdaily Name Start Date Expiration Date SIG Comments Amoxicillin Oral Capsule 500 mg 06/27/2010 07/07/2010 take 1 capsule by oral route 3 times a day for 10 days Singulair Oral Tablet, Chewable 5 mg 11/15/2010 chew 1 tablets by oral route daily at bedtime Discontinued Name Start Date Discontinued Date SIG Comments albuterol sulfate Inhalation HFA Aerosol Inhaler 90 mcg/Actuation 11/15/201011/14/2013 inhale 2 puffs by inhalation route at least 15 minutes before exertion Ocuflox Ophthalmic Drops 0.3 % 04/24/2011 11/14/2013 apply 1 drop into affected eye(s) by ophthalmic route every 4 hours for 2 days then 1 drop four times daily for 5 days Problem List Not available. Vital Signs Date Time BP-Sys(mm[Hg] BP-Kitty(mm[Hg]) HR(bpm) RR(rpm) Temp WT HT HC BMI BSA BMI Percentile O2 Sat(%) 06/25/2014 10:28:00 AM 113 mmHg 70 mmHg [...] 99 % Social History Name Description Comments Lives with both parents Tobacco Current every day smoker History of Procedures Date Ordered Description Order Status 11/08/2010 12:00 AM BREATHING CAPACITY TEST Reviewed 11/08/2010 12:00 AM Holter monitoring, 24-hour, continuous original ECG waveform, recording and storage without superimposition scanning utilizing a device capable of producing a full miniaturized printout; includes recording, microprocessor-based analysis with report, physician review and interpretation Reviewed 08/03/2009 12:00 AM RBC SED RATE AUTOMATED Reviewed 08/03/2009 12:00 AM COMPLETE CBC W/AUTO DIFF WBC Reviewed 08/03/2009 12:00 AM ASSAY OF LEAD Reviewed 08/03/2009 12:00 AM X-RAY EXAM TRUNK SPINE STAND Reviewed 11/14/2013 12:00 AM CHORIONIC GONADOTROPIN TEST Returned 06/27/2010 12:00 AM CULTURE OTHR SPECIMN AEROBIC Reviewed 05/29/2014 10:08 AM URINE TEST Reviewed 06/25/2014 10:36 AM URINE TEST Reviewed 06/25/2014 12:00 AM N.GONORRHOEAE DNA AMP PROB Returned 06/25/2014 12:00 AM CHLAMYDIA CULTURE Returned 06/25/2014 12:00 AM HIV-1ANTIBODY Returned 06/25/2014 12:00 AM URINALYSIS AUTO W/SCOPE Returned 06/25/2014 12:00 AM OBSTETRIC PANEL Returned 07/03/2014 12:00 AM US EXAM PELVIC COMPLETE Returned 07/03/2014 12:00 AM OB US < 14 WKS SINGLE FETUS Returned Results Summary Data and Description Results [...] 2.14 #MONO 0.40 #EOS 0.11 #BASO 0.02 HIV AG/AB COMBO 0.16 HBsAg Screen Negative 06/25/2014 12:32 PM COLOR YELLOW APPEARANCE CLOUDY SPEC GRAV 1.020 pH 8.0 PROTEIN NEGATIVE GLUCOSE NEGATIVE KETONE NEGATIVE BILIRUBIN NEGATIVE BLOOD NEGATIVE NITRITE NEGATIVE LEUK SCREEN NEGATIVE CASTS/LPF NEGATIVE CRYSTALS 3+++ AMORPHOUS MUCOUS THRDS NEGATIVE BACTERIA FEW EPITH CELLS 1+ SQUAMOUS TRICHOMONAS NEGATIVE YEAST NEGATIVE History Of Immunizations Not available. History of [...] management of mother Jun 25 2014 2:07PM Payers Insurance Name Company Name Plan Name Plan Number Policy Number Policy Group Number Start Date [facility] [id number] [facility] [id number] Thursday, 2009 [facility] [id number] Thursday, 2009 History of Encounters Visit Date Visit Type Provider 06/25/2014 Office visit Xander Knox MD 05/29/2014 Office visit Rupali Carter DERRICK BOAT CAPTAIN 02/02/2014 Office visit Dionisio Payton DO 11/14/2013 Office visit Rupali Carter DERRICK BOAT CAPTAIN 04/24/2011 Office visit BRENT PEÑA DERRICK BOAT CAPTAIN 11/08/2010 Office visit Brent Peña DERRICK BOAT CAPTAIN 06/27/2010 Office visit Brent Peña DERRICK BOAT CAPTAIN 08/03/2009 Office visit Brent Peña DERRICK BOAT CAPTAIN
--- OUTSIDE RECORDS SUMMARY | 2018-04-15 08:04 | XMS REPORT ---
Author Author Sirisha Alexander [facility] Address [address] [place], [place] [id number] Care Team Providers Care X Ray Examiner Of Aircraft Name Role Phone Sirisha Alexander PCP Unavailable Allergies and Adverse Reactions Name Reaction Notes NO KNOWN DRUG ALLERGIES Plan of Treatment Planned Activity Comments Planned Date Planned Time Plan/Goal ALPHA-FETOPROTEIN SERUM 03/18/2015 12:00 AM CHORIONIC GONADOTROPIN TEST 03/18/2015 12:00 AM CHORIONIC GONADOTROPIN ASSAY 03/18/2015 12:00 AM OB US >/=14 WKS SNGL FETUS 04/14/2015 12:00 AM URINE TEST 02/02/2014 12:00 AM Medications Active [...] second trimester, antepartum Mar 18 2015 3:00PM Payers Insurance Name Company Name Plan Name Plan Number Policy Number Policy Group Number Start Date [facility] [id number] Thursday, 2009 BCBS [facility] [place] [id number] Thursday, 2009 [facility] [id number] N/A [facility] [id number] N/A History of Encounters Visit Date Visit Type Provider 03/18/[address] Sirisha Alexander MD 02/18/[address] Sirisha Alexander MD 01/21/[address] Sirisha Alexander MD 01/05/2015 Office visit Rupali Carter COAT MAKER 10/12/2014 Office visit Rupali Carter COAT MAKER 07/08/2014 [facility] Xander Knox MD 06/25/2014 Office visit Xander Knox MD 05/29/2014 Office visit Rupali Carter COAT MAKER 02/02/2014 Office visit Dionisio Payton DO 11/14/2013 Office visit Rupali Carter COAT MAKER 04/24/2011 Office visit BRENT PEÑA COAT MAKER 11/08/2010 Office visit Brent Peña COAT MAKER 06/27/2010 Office visit Brent Peña COAT MAKER 08/03/2009 Office visit Brent Peña COAT MAKER
--- OUTSIDE RECORDS SUMMARY | 2018-04-15 08:05 | XMS REPORT ---
Author Rosy Person [facility] Address [address] [place], [place] [address] Care Team Providers Care Pelletising Extruder Operator Name Role Phone Rosy Mcclain PCP Unavailable Allergies and Adverse Reactions Name [...] Value 0.0382 ug/mLAFP MoM 1.17 hCG Value 10119.0 mIU/ mLhCG MoM 0.89 uE3 Value 1.430 ng/mLuE3 MoM 1.62 KITTY Value 122.770 pg/mLDIA MoM 0.72 OSBR Risk 1 IN 7137 DSR (Second Trimester) 1IN [address]289 DSR (By Age) 1 IN 1167 T18 [...] Vis Given Vis Pub CVX Tdap 07/22/2015 [employer] SKB BOOSTRIX [id number] Intramuscular Right Deltoid 07/22/2015 [...] Policy Number Policy Group Number Start Date [facility] [id number] N/A [facility] [id number] N/A [employer]BS [employer] [place] [id number] Thursday, 2009 [employer] [place] [id number] Thursday, 2009 History of Encounters Visit Date Visit Type Provider 08/19/2015 Office visit Rosy Mcclain DO 08/13/[address] Sirisha Alexander MD [...] Alexander MD 01/05/2015 Office visit Rupali Carter BENCH HAND MACHINE 10/12/2014 Office visit 10/12/2014 Office visit Rupali Carter BENCH HAND MACHINE 07/08/2014 [facility] Xander Knox MD 06/25/2014 Office visit 06/25/2014 Office visit Xander Knox MD 05/29/2014 Office visit Rupali Carter BENCH HAND MACHINE 02/02/2014 Office visit Dionisio Payton DO 11/14/2013 Office visit Rupali Carter BENCH HAND MACHINE 04/24/2011 Office visit BRENT PEÑA BENCH HAND MACHINE 11/08/2010 Office visit Brent Peña BENCH HAND MACHINE 06/27/2010 Office visit Brent Peña BENCH HAND MACHINE 08/03/2009 Office visit Brent Peña BENCH HAND MACHINE
--- OUTSIDE RECORDS SUMMARY | 2018-04-15 08:05 | XMS REPORT ---
Author Author Sirisha Alexander [facility] Address [address] [place], [place] [address] Care Team Providers Care Plant Etiologist Name Role Phone Sirisha Alexander PCP Unavailable [...] Value 0.0382 ug/mLAFP MoM 1.17 hCG Value 98899.0 mIU/ mLhCG MoM 0.89 uE3 Value 1.430 ng/mLuE3 MoM 1.62 KITTY Value 122.770 pg/mLDIA MoM 0.72 OSBR Risk 1 IN 7137 DSR (Second Trimester) 1IN [address]20 DSR (By Age) 1 IN 1167 T18 [...] Vis Given Vis Pub CVX Tdap 07/22/2015 [employer] SKB BOOSTRIX [id number] Intramuscular Right Deltoid 07/22/2015 [...] Policy Number Policy Group Number Start Date [facility] [id number] N/A [facility] [id number] N/A [employer] [place] [id number] Thursday, 2009 [employer] [place] [place] [id number] Thursday, 2009 History of Encounters Visit Date [...] Alexander MD 01/05/2015 Office visit Rupali Carter PRODUCT SAFETY SPECIALIST 10/12/2014 Office visit 10/12/2014 Office visit Rupali Carter PRODUCT SAFETY SPECIALIST 07/08/2014 [facility] Xander Knox MD 06/25/2014 Office visit 06/25/2014 Office visit Xander Knox MD 05/29/2014 Office visit Rupali Carter PRODUCT SAFETY SPECIALIST 02/02/2014 Office visit Dionisio Payton DO 11/14/2013 Office visit Rupali Carter PRODUCT SAFETY SPECIALIST 04/24/2011 Office visit BRENT PEÑA PRODUCT SAFETY SPECIALIST 11/08/2010 Office visit Brent Peña PRODUCT SAFETY SPECIALIST 06/27/2010 Office visit Brent Peña PRODUCT SAFETY SPECIALIST 08/03/2009 Office visit Brent Peña PRODUCT SAFETY SPECIALIST
--- OUTSIDE RECORDS SUMMARY | 2018-04-15 08:05 | XMS REPORT ---
Author Author Sirisha Alexander [facility] Address [address] [place], [place] [address] Care Team Providers Care Drum Stock Clerk Name Role Phone Sirisha Alexander PCP Unavailable [...] Reviewed 07/22/2015 12:00 AM IMMUNIZATION ADMIN Reviewed 08/03/2009 12:00 AM RBC SED RATE [...] Value 0.0382 ug/mLAFP MoM 1.17 hCG Value 65957.0 mIU/ mLhCG MoM 0.89 uE3 Value 1.430 ng/mLuE3 MoM 1.62 KITTY Value 122.770 pg/mLDIA MoM 0.72 OSBR Risk 1 IN 7137 DSR (Second Trimester) 1IN [address]96 DSR (By Age) 1 IN 1167 T18 Risk Not increased T18 (By Age) 1:4548 06/10/2015 3:42 PM WBC 11.7 RBC 3.98 HGB 11.80 g/dLHCT 35.0 %MCV 88.0 fLMCH 29.60 pgMCHC 33.70 g/dLRDW CV 12.60 %MPV 9.10 fLPLT 320 %NEUT 74.80 %%LYMP 17.50 %%MONO 5.50 %%EOS 0.90 %%BASO 0.30 %#NEUT 8.72 #LYMP 2.04 #MONO 0.64 #EOS 0.10 #BASO 0.04 History Of Immunizations Name Date Admin Mfg Name Mfg Code Trade Name Lot# Route Inj Vis Given Vis Pub CVX Tdap 07/22/2015 [employer] SKB BOOSTRIX [id number] Intramuscular Right Deltoid 07/22/2015 [...] for Tdap vaccine Jul 22 2015 3:58PM Payers Insurance Name Company Name Plan Name Plan Number Policy Number Policy Group Number Start Date [facility] [id number] N/A [facility] [id number] N/A BCBS Bcbs [facility] [id number] Thursday, 2009 BCBS Bcbs [facility] [id number] Thursday, 2009 History of Encounters Visit Date Visit Type Provider 07/22/[address] Sirisha Alexander MD 07/08/[address] Sirisha Alexander MD 06/10/[address] Sirisha Alexander MD 05/13/[address] Sirisha Alexander MD 04/15/[address] Sirisha Alexander MD 03/18/[address] Sirisha Alexander MD 02/18/[address] Sirisha Aleaxnder MD 01/21/[address] Sirisha Alexander MD 01/05/2015 Office visit Rupali Carter FAMILY SOCIOLOGIST 10/12/2014 Office visit 10/12/2014 Office visit Rupali Carter FAMILY SOCIOLOGIST 07/08/2014 [facility] Xander Knox MD 06/25/2014 Office visit 06/25/2014 Office visit Xander Knox MD 05/29/2014 Office visit Rupali Carter FAMILY SOCIOLOGIST 02/02/2014 Office visit Dionisio Payton DO 11/14/2013 Office visit Rupali Carter FAMILY SOCIOLOGIST 04/24/2011 Office visit BRENT PEÑA FAMILY SOCIOLOGIST 11/08/2010 Office visit Brent Peña FAMILY SOCIOLOGIST 06/27/2010 Office visit Brent Peña FAMILY SOCIOLOGIST 08/03/2009 Office visit Brent Peña FAMILY SOCIOLOGIST
--- OUTSIDE RECORDS SUMMARY | 2018-04-15 08:06 | XMS REPORT ---
Author Author Sirisha Alexander [facility] Address [address] [place], [place] [address] Care Team Providers Care Food Service Worker Hospital Name Role Phone Sirisha Alexander PCP Unavailable [...] Value 0.0382 ug/mLAFP MoM 1.17 hCG Value 72100.0 mIU/ mLhCG MoM 0.89 uE3 Value 1.430 ng/mLuE3 MoM 1.62 KITTY Value 122.770 pg/mLDIA MoM 0.72 OSBR Risk 1 IN 7137 DSR (Second Trimester) 1IN [address]487 DSR (By Age) 1 IN 1167 T18 [...] BLOOD NEGATIVE NITRITE NEGATIVE LEUK SCREEN NEGATIVE History Of Immunizations Name Date Admin Mfg Name Mf Code Trade Name Lot# Route Inj Vis Given Vis Pub CVX Tdap 07/22/2015 [employer] SKB BOOSTRIX [id number] Intramuscular Right Deltoid 07/22/2015 [...] Policy Number Policy Group Number Start Date [facility] [id number] N/A [facility] [id number] N/A BCBS [facility]bs [id number] Thursday, 2009 [employer]BS [facility] [place] [id number] Thursday, 2009 History of Encounters Visit Date Visit Type Provider 08/05/[address] Sirisha Alexander MD [...] Alexander MD 01/05/2015 Office visit Rupali Carter FLIGHT SERVICE SPECIALIST 10/12/2014 Office visit 10/12/2014 Office visit Rupali Carter FLIGHT SERVICE SPECIALIST 07/08/2014 [facility] Xander Knox MD 06/25/2014 Office visit 06/25/2014 Office visit Xander Knox MD 05/29/2014 Office visit Rupali Carter FLIGHT SERVICE SPECIALIST 02/02/2014 Office visit Dionisio Payton DO 11/14/2013 Office visit Rupali Carter FLIGHT SERVICE SPECIALIST 04/24/2011 Office visit BRENT PEÑA FLIGHT SERVICE SPECIALIST 11/08/2010 Office visit Brent Peña FLIGHT SERVICE SPECIALIST 06/27/2010 Office visit Brent Peña FLIGHT SERVICE SPECIALIST 08/03/2009 Office visit Brent Peña FLIGHT SERVICE SPECIALIST
--- OUTSIDE RECORDS SUMMARY | 2018-04-15 08:06 | XMS REPORT ---
Author Author Sirisha Alexander [facility] Address [address] [place], [place] [address] Care Team Providers Care Grid Molder Name Role Phone Sirisha Alexander PCP Unavailable [...] Number Policy Group Number Start Date [facility] [id number] Thursday, 2009 B[facility]bs B[facility] [id number] Thursday, 2009 [facility] [id number] N/A [facility] [id number] N/A History of Encounters Visit Date Visit Type Provider 01/21/[address] Sirisha Alexander MD 01/05/2015 Office visit Rupali Carter HAND ASSEMBLER 10/12/2014 Office visit Rupali Carter HAND ASSEMBLER 07/08/2014 [facility] Xander Knox MD 06/25/2014 Office visit Xander Knox MD 05/29/2014 Office visit Rupali Carter HAND ASSEMBLER 02/02/2014 Office visit Dionisio Payton DO 11/14/2013 Office visit Rupali Carter HAND ASSEMBLER 04/24/2011 Office visit BRENT PEÑA HAND ASSEMBLER 11/08/2010 Office visit Brent Peña HAND ASSEMBLER 06/27/2010 Office visit Brent Peña HAND ASSEMBLER 08/03/2009 Office visit Brent Peña HAND ASSEMBLER
--- OUTSIDE RECORDS SUMMARY | 2018-04-15 08:07 | XMS REPORT ---
Author Author Sirisha Alexander [facility] Address [address] [place], [place] [address] Care Team Providers Care Health Care Attorney Name Role Phone Sirisha Alexander PCP Unavailable [...] Number Policy Group Number Start Date [facility] [id number] Thursday, 2009 BCBS Bcbs [facility] [id number] Thursday, 2009 [facility] [id number] N/A [facility] [id number] N/A History of Encounters Visit Date Visit Type Provider 03/18/[address] Sirisha Alexander MD 02/18/[address] Sirisha Alexander MD 01/21/[address] Sirisha Alexander MD 01/05/2015 Office visit Rupali Carter RESIDENTIAL COORDINATOR 10/12/2014 Office visit Rupali Carter RESIDENTIAL COORDINATOR 07/08/2014 [facility] Xander Knox MD 06/25/2014 Office visit Xander Knox MD 05/29/2014 Office visit Rupali Carter RESIDENTIAL COORDINATOR 02/02/2014 Office visit Dionisio Payton DO 11/14/2013 Office visit Rupali Carter RESIDENTIAL COORDINATOR 04/24/2011 Office visit BRENT PEÑA RESIDENTIAL COORDINATOR 11/08/2010 Office visit Brent Peña RESIDENTIAL COORDINATOR 06/27/2010 Office visit Brent Peña RESIDENTIAL COORDINATOR 08/03/2009 Office visit Brent Peña RESIDENTIAL COORDINATOR
--- OUTSIDE RECORDS SUMMARY | 2018-04-15 08:07 | XMS REPORT ---
Author Author Sirisha Alexander [facility] Address [address] [place], [place] [address] Care Team Providers Care Clinical Documentation Nurse Name Role Phone Sirisha Alexander PCP Unavailable Allergies and Adverse Reactions Name Reaction Notes NO KNOWN DRUG ALLERGIES Plan of Treatment Planned Activity Comments Planned Date Planned Time Plan/Goal OB US >/=14 WKS SNGL FETUS 04/14/2015 12:00 AM US EXAM PELVIC COMPLETE 04/14/2015 12:00 AM URINE TEST 02/02/2014 12:00 [...] 03/18/2015 12:00 AM CHORIONIC GONADOTROPIN ASSAY Returned 08/03/2009 12:00 AM RBC SED RATE [...] Value 0.0382 ug/mLAFP MoM 1.17 hCG Value 95770.0 mIU/ mLhCG MoM 0.89 uE3 Value 1.430 ng/mLuE3 MoM 1.62 KITTY Value 122.770 pg/mLDIA MoM 0.72 OSBR Risk 1 IN 7137 DSR (Second Trimester) 1IN [address] DSR (By Age) 1 IN 1167 T18 Risk Not increased T18 (By Age) 1:4548 History Of Immunizations Not available. History of [...] Number Policy Group Number Start Date [employer]BS [employer] [place] [id number] Thursday, 2009 [employer] [place] [id number] Thursday, 2009 [facility] [id number] N/A [facility] [id number] N/A History of Encounters Visit Date Visit Type Provider 03/18/[address] Sirisha Alexander MD 02/18/[address] Sirisha Alexander MD 01/21/[address] Sirisha Alexander MD 01/05/2015 Office visit Rupali Carter SALES PROGRAM MANAGER 10/12/2014 Office visit 10/12/2014 Office visit Rupali Carter SALES PROGRAM MANAGER 07/08/2014 [facility] Xander Knox MD 06/25/2014 Office visit 06/25/2014 Office visit Xander Knox MD 05/29/2014 Office visit Rupali Carter SALES PROGRAM MANAGER 02/02/2014 Office visit Dionisio Payton DO 11/14/2013 Office visit Rupali Carter SALES PROGRAM MANAGER 04/24/2011 Office visit BRENT PEÑA SALES PROGRAM MANAGER 11/08/2010 Office visit Brent Peña SALES PROGRAM MANAGER 06/27/2010 Office visit Brent Peña SALES PROGRAM MANAGER 08/03/2009 Office visit Brent Peña SALES PROGRAM MANAGER
--- OUTSIDE RECORDS SUMMARY | 2018-04-15 08:07 | XMS REPORT ---
Author Author Sirisha Alexander [facility] Address [address] [place], [place] [address] Care Team Providers Care Sprayer Operator Name Role Phone Sirisha Alexander PCP Unavailable [...] Number Policy Group Number Start Date [facility] [id number] Thursday, 2009 [facility]bs B[facility] [id number] Thursday, 2009 [facility] [id number] N/A [facility] [id number] N/A History of Encounters Visit Date Visit Type Provider 02/18/[address] Sirisha Alexander MD 01/21/[address] Sirisha Alexander MD 01/05/2015 Office visit Rupali Carter HEAD SAWYER 10/12/2014 Office visit Rupali Carter HEAD SAWYER 07/08/2014 [facility] Xander Knox MD 06/25/2014 Office visit Xander Knox MD 05/29/2014 Office visit Rupali Carter HEAD SAWYER 02/02/2014 Office visit Dionisio Payton DO 11/14/2013 Office visit Rupali Carter HEAD SAWYER 04/24/2011 Office visit BRENT PEÑA HEAD SAWYER 11/08/2010 Office visit Brent Peña HEAD SAWYER 06/27/2010 Office visit Brent Peña HEAD SAWYER 08/03/2009 Office visit Brent Peña HEAD SAWYER
--- OUTSIDE RECORDS SUMMARY | 2018-04-15 08:08 | XMS REPORT ---
Author Author Sirisha Alexander [facility] Address [address] [place], [place] [address] Care Team Providers Care Centrifugal Casting Machine Tender Name Role Phone Sirisha Alexander PCP Unavailable [...] Number Policy Group Number Start Date [facility] [id number] Thursday, 2009 BCBS [facility] [place] [id number] Thursday, 2009 [facility] [id number] N/A [facility] [id number] N/A History of Encounters Visit Date Visit Type Provider 03/18/[address] Sirisha Alexander MD 02/18/[address] Sirisha Alexander MD 01/21/[address] Sirisha Alexander MD 01/05/2015 Office visit Rupali Carter HATCHERY WORKER 10/12/2014 Office visit Rupali Carter HATCHERY WORKER 07/08/2014 [facility] Xander Knox MD 06/25/2014 Office visit Xander Knox MD 05/29/2014 Office visit Rupali Carter HATCHERY WORKER 02/02/2014 Office visit Dionisio Payton DO 11/14/2013 Office visit Rupali Carter HATCHERY WORKER 04/24/2011 Office visit BRENT PEÑA HATCHERY WORKER 11/08/2010 Office visit Brent Peña HATCHERY WORKER 06/27/2010 Office visit Brent Peña HATCHERY WORKER 08/03/2009 Office visit Brent Peña HATCHERY WORKER
--- OUTSIDE RECORDS SUMMARY | 2018-04-15 08:08 | XMS REPORT ---
Author Author Sirisha Alexander [facility] Address [address] [place], [place] [address] Care Team Providers Care Sports Teacher Name Role Phone Sirisha Alexander PCP Unavailable Allergies and Adverse Reactions Name Reaction Notes NO KNOWN DRUG ALLERGIES Plan of Treatment Planned Activity Comments Planned Date Planned Time Plan/Goal URINE TEST 02/02/2014 12:00 AM Medications Name Start Date Expiration Date SIG Comments [...] 10/12/2014 1 PO qdaily pt not taking Vitamin oral tablet 10/07/2015 take 1 tablet by oral route once daily Problem List Not available. Vital Signs Date Time BP-Sys(mm[Hg] BP-Kitty(mm[Hg]) HR(bpm) RR(rpm) Temp WT HT HC BMI BSA BMI Percentile O2 Sat(%) 10/07/2015 11:28:00 AM 118 mmHg 76 mmHg 104 bpm 96.9 F 170.125 lbs 62 in 31.12 kg/m2 1.84 m2 94.5 % 01/05/2015 10:15:00 AM 123 mmHg 57 mmHg 66 bpm 98.9 F 140 lbs 62 in 25.6061 kg/m 1.6667 m 82.9 % 10/12/2014 10:39:00 AM 125 mmHg 64 mmHg 73 bpm 98.2 F 153 lbs 62 in 27.98 kg/m2 1.74 m2 90.7 % 06/25/2014 10:28:00 AM 113 mmHg 70 mmHg 72 bpm 99 F 156 lbs 62 in 28.5325 kg/m 1.7594 m 92.1 % 05/29/2014 10:04:00 AM 142 mmHg 73 mmHg 87 bpm 18 rpm 98.2 F 155 lbs 62 in 28.35 kg/m2 1.75 m2 91.8 % 02/02/2014 8:11:00 AM 134 mmHg 70 mmHg 70 bpm 16 rpm 97.9 F 152 lbs 61 in 28.7199 kg/m 1.7226 m 92.8 % 97 % 11/14/2013 9:46:00 AM 115 mmHg 69 mmHg 59 bpm 97.3 F 154 lbs 61 in 29.10 kg/m2 1.73 m2 93.6 % 04/24/2011 8:34:00 AM 108 mmHg 62 mmHg 70 bpm 18 rpm 96.8 F 139 lbs 61 in 26.2636 kg/m 1.6473 m 91.4 % 98 % 11/08/2010 10:10:00 AM 100 mmHg 58 mmHg 56 bpm 22 rpm 96.3 F 135 lbs 98 % 06/27/2010 9:03:00 AM 111 bpm 22 rpm 99.6 F 134 lbs 61 in 25.3188 kg/m 1.6174 m 90.6 % 98 % 08/03/2009 9:52:00 AM 110 mmHg 70 mmHg 71 bpm 18 rpm 97.8 F 129.375 lbs 61 in 24.44 kg/m2 1.59 m2 90.1 % 99 % 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 Tobacco Current every [...] Value 0.0382 ug/mLAFP MoM 1.17 hCG Value 37044.0 mIU/ mLhCG MoM 0.89 uE3 Value 1.430 ng/mLuE3 MoM 1.62 KITTY Value 122.770 pg/mLDIA MoM 0.72 OSBR Risk 1 IN 7137 DSR (Second Trimester) 1IN [address] DSR (By Age) 1 IN 1167 T18 [...] NEGATIVE 08/11/2015 11:50 AM AMNISURE ROM NEGATIVE 08/23/2015 11:45 PM WBC 13.4 RBC 4.00 HGB 11.30 g/dLHCT 33.80 %MCV 85.0 fLMCH 28.30 pgMCHC 33.40 g/dLRDW CV 14.60 %MPV 9.70 fLPLT 323 %NEUT 73.40 %%LYMP 19.70 %%MONO 5.30 %%EOS 0.70 %%BASO 0.20 %#NEUT 9.84 #LYMP 2.64 #MONO 0.71 #EOS 0.09 #BASO 0.03 History Of Immunizations Name Date Admin Mfg Name Mfg Code Trade Name Lot# Route Inj Vis Given Vis Pub CVX Tdap 07/22/2015 [employer] SKB BOOSTRIX [id number] Intramuscular Right Deltoid 07/22/2015 [...] in third trimester Aug 05 2015 4:37PM Third trimester Aug 19 2015 10:11AM Post- Follow-Up Oct 07 2015 11:29AM Payers Insurance Name Company Name Plan Name Plan Number Policy Number Policy Group Number Start Date [facility] [id number] N/A [facility] [id number] N/A [employer] [facility] [facility] [place] [id number] Thursday, 2009 [employer]BS [facility] [place] [id number] Thursday, 2009 History of Encounters Visit Date Visit Type Provider 10/07/[address] Sirisha Alexander MD 08/24/2015 [facility] 08/19/2015 Office visit [facility] 08/13/[address] Sirisha Alexander MD [...] Alexander MD 01/21/[address] Sirisha Alxeander MD 01/05/2015 Office visit Rupali Carter INSTRUCTIONAL DEVELOPER 10/12/2014 Office visit 10/12/2014 Office visit Rupali Carter INSTRUCTIONAL DEVELOPER 07/08/2014 [facility] Xander Knox MD 06/25/2014 Office visit 06/25/2014 Office visit Xander Knox MD 05/29/2014 Office visit Rupali Carter INSTRUCTIONAL DEVELOPER 02/02/2014 Office visit Dionisio Payton DO 11/14/2013 Office visit Rupali Crater INSTRUCTIONAL DEVELOPER 04/24/2011 Office visit BRENT PEÑA INSTRUCTIONAL DEVELOPER 11/08/2010 Office visit Brent Peña INSTRUCTIONAL DEVELOPER 06/27/2010 Office visit Brent Peña INSTRUCTIONAL DEVELOPER 08/03/2009 Office visit Brent Peña INSTRUCTIONAL DEVELOPER
--- OUTSIDE RECORDS SUMMARY | 2018-04-15 08:09 | XMS REPORT ---
Author Author Rupali Carter [facility] Address [address] [place], [place] [address] Care Team Providers Care Client Hr Manager Name Role Phone Rupali Carter PCP Unavailable Allergies and Adverse Reactions Name Reaction Notes NO KNOWN DRUG ALLERGIES Plan of Treatment Planned Activity Comments Planned Date Planned Time Plan/Goal N.GONORRHOEAE DNA AMP PROB 01/05/2015 12:00 AM CHLAMYDIA CULTURE 01/05/2015 12:00 AM HIV-1ANTIBODY 01/05/2015 12:00 AM URINALYSIS AUTO W/SCOPE 01/05/2015 12:00 AM OBSTETRIC PANEL 01/05/2015 12:00 AM URINE TEST 02/02/2014 12:00 AM Medications Name [...] Reviewed 01/05/2015 10:26 AM URINE TEST Reviewed 08/03/2009 12:00 AM RBC SED RATE [...] m2 01/05/2015 10:26 AM Test, Urine positive History Of Immunizations Not available. History of [...] Number Policy Group Number Start Date [facility] [place] [id number] Thursday, 2009 [facility] [place] [id number] Thursday, 2009 [facility] [id number] N/A [facility] [id number] N/A History of Encounters Visit Date Visit Type Provider 01/05/2015 Office visit Rupali Carter BABYSITTER 10/12/2014 Office visit Rupali Carter BABYSITTER 07/08/2014 [facility] Xander Knox MD 06/25/2014 Office visit Xander Knox MD 05/29/2014 Office visit Rpuali Carter BABYSITTER 02/02/2014 Office visit Dionisio Payton DO 11/14/2013 Office visit Rupali Carla Carter BABYSITTER 04/24/2011 Office visit BRENT PEÑA BABYSITTER 11/08/2010 Office visit Brent Peña BABYSITTER 06/27/2010 Office visit Brent Peña BABYSITTER 08/03/2009 Office visit Brent Peña BABYSITTER
--- OUTSIDE RECORDS SUMMARY | 2018-04-15 08:09 | XMS REPORT ---
Author Author Sirisha Alexander [facility] Address [address] [place], [place] [id number] Care Team Providers Care Crop And Soil Scientist Name Role Phone Sirisha Alexander PCP Unavailable [...] Value 0.0382 ug/mLAFP MoM 1.17 hCG Value 32409.0 mIU/ mLhCG MoM 0.89 uE3 Value 1.430 ng/mLuE3 MoM 1.62 KITTY Value 122.770 pg/mLDIA MoM 0.72 OSBR Risk 1 IN 7137 DSR (Second Trimester) 1IN [address]305 DSR (By Age) 1 IN 1167 T18 [...] Vis Given Vis Pub CVX Tdap 07/22/2015 FreshGrade SKB BOOSTRIX [id number] Intramuscular Right Deltoid 07/22/2015 [...] Policy Number Policy Group Number Start Date [facility] [id number] N/A [facility] [id number] N/A BCBS [employer]c[facility] [id number] Thursday, 2009 BCBS [employer] [facility] [id number] Thursday, 2009 History of Encounters Visit Date [...] MD 01/05/2015 Office visit Rupali Carter PRODUCT GRADER 10/12/2014 Office visit 10/12/2014 Office visit Rupali Carter PRODUCT GRADER 07/08/2014 [facility] Xander Knox MD 06/25/2014 Office visit 06/25/2014 Office visit Xander Knox MD 05/29/2014 Office visit Rupali Carter PRODUCT GRADER 02/02/2014 Office visit Dionisio Payton DO 11/14/2013 Office visit Rupali Carter PRODUCT GRADER 04/24/2011 Office visit BRENT PEÑA PRODUCT GRADER 11/08/2010 Office visit Brent Peña PRODUCT GRADER 06/27/2010 Office visit Brent Peña PRODUCT GRADER 08/03/2009 Office visit Brent Peña PRODUCT GRADER
--- OUTSIDE RECORDS SUMMARY | 2018-04-15 08:09 | XMS REPORT ---
Author Author Sirisha Alexander [facility] Address [address] [place], [place] [id number] Care Team Providers Care Welt Stitcher Name Role Phone Sirihsa Alexander PCP Unavailable Allergies and Adverse Reactions [...] Value 0.0382 ug/mLAFP MoM 1.17 hCG Value 03515.0 mIU/ mLhCG MoM 0.89 uE3 Value 1.430 ng/mLuE3 MoM 1.62 KITTY Value 122.770 pg/mLDIA MoM 0.72 OSBR Risk 1 IN 7137 DSR (Second Trimester) 1IN [address]666 DSR (By Age) 1 IN 1167 T18 [...] Vis Given Vis Pub CVX Tdap 07/22/2015 GlaxJMB Energie SKB BOOSTRIX [id number] Intramuscular Right Deltoid 07/22/2015 [...] 4:37PM Third trimester Aug 19 2015 10:11AM Payers Insurance Name Company Name Plan Name Plan Number Policy Number Policy Group Number Start Date [facility] [id number] N/A [facility] [id number] N/A BCBS [facility] [id number] Thursday, 2009 [employer] [facility] [place] [id number] Thursday, 2009 History of Encounters Visit Date Visit Type Provider 10/07/[address] Sirisha Alexander MD 08/24/2015 [facility] 08/19/2015 Office visit [facility] 08/13/[address] Sirisha Alexander [...] Alexander MD 01/05/2015 Office visit Rupali Carter NUMERICAL ANALYSIS GROUP MANAGER 10/12/2014 Office visit 10/12/2014 Office visit Rupali Carter NUMERICAL ANALYSIS GROUP MANAGER 07/08/2014 [facility] Xander Knox MD 06/25/2014 Office visit 06/25/2014 Office visit Xander Knox MD 05/29/2014 Office visit Rupali Carter NUMERICAL ANALYSIS GROUP MANAGER 02/02/2014 Office visit Dionisio Payton DO 11/14/2013 Office visit Rupali Carter NUMERICAL ANALYSIS GROUP MANAGER 04/24/2011 Office visit BRENT PEÑA NUMERICAL ANALYSIS GROUP MANAGER 11/08/2010 Office visit Brent Peña NUMERICAL ANALYSIS GROUP MANAGER 06/27/2010 Office visit Brent Peña NUMERICAL ANALYSIS GROUP MANAGER 08/03/2009 Office visit Brent Peña NUMERICAL ANALYSIS GROUP MANAGER
--- OUTSIDE RECORDS SUMMARY | 2018-04-15 08:10 | XMS REPORT ---
Author Author Rupali Carter [facility] Address [address] [place], [place] [address] Care Team Providers Care Senior Director Of Global Commercial Technology Solutions Name Role Phone Rupali Carter PCP Unavailable Allergies and Adverse Reactions Name Reaction Notes NO KNOWN DRUG ALLERGIES Plan of Treatment Planned Activity Comments Planned Date Planned Time Plan/Goal URINE TEST 02/02/2014 12:00 AM OB US >/=14 WKS SNGL FETUS 10/12/2014 12:00 AM US EXAM PELVIC COMPLETE 10/12/2014 12:00 AM Medications Name Start Date Expiration [...] HC BMI BSA BMI Percentile O2 Sat(%) 10/12/2014 10:39:00 AM 125 mmHg 64 mmHg [...] US < 14 WKS SINGLE FETUS Returned 10/20/2014 12:00 AM US EXAM PELVIC COMPLETE [...] 0.60 mg/dLCALCIUM 8.90 mg/dLeGFR >60 mL/min/1.73 m2 History Of Immunizations Not available. History of [...] 10:44AM Pelvic Pain Oct 19 2014 1:26PM Payers Insurance Name Company Name Plan Name Plan Number Policy Number Policy Group Number Start Date [facility] [id number] N/A [facility] [id number] N/A [facility] [place] [id number] Thursday, 2009 [facility] [place] [id number] Thursday, 2009 History of Encounters Visit Date Visit Type Provider 10/12/2014 Office visit Rupali Catrer RIVET TESTER 07/08/2014 Hospital Xander Knox MD 06/25/2014 Office visit Xander Knox MD 05/29/2014 Office visit Rupali Carter RIVET TESTER 02/02/2014 Office visit Dionisio Payton DO 11/14/2013 Office visit Rupali Carter RIVET TESTER 04/24/2011 Office visit BRENT PEÑA RIVET TESTER 11/08/2010 Office visit Brent Peña RIVET TESTER 06/27/2010 Office visit Brent Peña RIVET TESTER 08/03/2009 Office visit Brent Peña RIVET TESTER
--- OUTSIDE RECORDS SUMMARY | 2018-04-15 08:10 | XMS REPORT ---
Author Author Sirisha Alexander [facility] Address [address] [place], [place] [phone] Care Team Providers Care Fuel Handler Name Role Phone Sirisha Alexander PCP Unavailable [...] , Other Normal Mar 18 2015 3:00PM Payers Insurance Name Company Name Plan Name Plan Number Policy Number Policy Group Number Start Date [facility] [id number] Thursday, 2009 BCBS [facility]cbs [facility] [id number] Thursday, 2009 [facility] [id number] N/A [facility] [id number] N/A History of Encounters Visit Date Visit Type Provider 03/18/[address] Sirisha Alexander MD 02/18/[address] Sirisha Alexander MD 01/21/[address] Sirisha Alexander MD 01/05/2015 Office visit Rupali Carter COMMUNITY DEVELOPMENT PLANNER 10/12/2014 Office visit Rupali Carter COMMUNITY DEVELOPMENT PLANNER 07/08/2014 Hospital Xander Knox MD 06/25/2014 Office visit Xander Knox MD 05/29/2014 Office visit Rupali Carter COMMUNITY DEVELOPMENT PLANNER 02/02/2014 Office visit Dionisio Payton DO 11/14/2013 Office visit Rupali Carter COMMUNITY DEVELOPMENT PLANNER 04/24/2011 Office visit BRENT PEÑA COMMUNITY DEVELOPMENT PLANNER 11/08/2010 Office visit Brent Peña COMMUNITY DEVELOPMENT PLANNER 06/27/2010 Office visit Brent Peña COMMUNITY DEVELOPMENT PLANNER 08/03/2009 Office visit Brent Peña COMMUNITY DEVELOPMENT PLANNER
--- OUTSIDE RECORDS SUMMARY | 2018-04-15 08:10 | XMS REPORT ---
Author Author Sirisha Alexander [facility] Address [address] [place], [place] [address] Care Team Providers Care Philosophy Professor Name Role Phone Sirisha Alexander PCP Unavailable [...] Number Policy Group Number Start Date [facility] [id number] Thursday, 2009 [facility] [id number] Thursday, 2009 [facility] [id number] N/A [facility] [id number] N/A History of Encounters Visit Date Visit Type Provider 02/18/[address] Sirisha Alexander MD 01/21/[address] Sirisha Alexander MD 01/05/2015 Office visit Rupali Carter CREATIVE ENGAGEMENT DIRECTOR 10/12/2014 Office visit Rupali Carter CREATIVE ENGAGEMENT DIRECTOR 07/08/2014 [facility] Xander Knox MD 06/25/2014 Office visit Xander Knox MD 05/29/2014 Office visit Rupali Carter CREATIVE ENGAGEMENT DIRECTOR 02/02/2014 Office visit Dionisio Payton DO 11/14/2013 Office visit Rupali Carter CREATIVE ENGAGEMENT DIRECTOR 04/24/2011 Office visit BRENT PEÑA CREATIVE ENGAGEMENT DIRECTOR 11/08/2010 Office visit Brent Peña CREATIVE ENGAGEMENT DIRECTOR 06/27/2010 Office visit Brent Peña CREATIVE ENGAGEMENT DIRECTOR 08/03/2009 Office visit Brent Peña CREATIVE ENGAGEMENT DIRECTOR
--- OUTSIDE RECORDS SUMMARY | 2018-04-15 08:11 | XMS REPORT ---
Author Author Rupali Carter [facility] Address [address] [place], [place] [address] Care Team Providers Care Refrigeration Systems Installer Name Role Phone Rupali Carter PCP Unavailable [...] Group Number Start Date [facility] [place] [id number] Thursday, 2009 [facility] [place] [id number] Thursday, 2009 [facility] [id number] N/A [facility] [id number] N/A History of Encounters Visit Date Visit Type Provider 01/05/2015 Office visit Rupali Carter BUSINESS OFFICE DIRECTOR 10/12/2014 Office visit Rupali Carter BUSINESS OFFICE DIRECTOR 07/08/2014 [facility] Xander Knox MD 06/25/2014 Office visit Xander Knox MD 05/29/2014 Office visit Rupali Carter BUSINESS OFFICE DIRECTOR 02/02/2014 Office visit Dionisio Payton DO 11/14/2013 Office visit Rupali Carla Carter BUSINESS OFFICE DIRECTOR 04/24/2011 Office visit BRENT PEÑA BUSINESS OFFICE DIRECTOR 11/08/2010 Office visit Brent Peña BUSINESS OFFICE DIRECTOR 06/27/2010 Office visit Brent Peña BUSINESS OFFICE DIRECTOR 08/03/2009 Office visit Brent Peña BUSINESS OFFICE DIRECTOR
--- OUTSIDE RECORDS SUMMARY | 2018-04-15 08:11 | XMS REPORT ---
Author Author Jade Muse [facility] Address [address] [place], [place] [address] Care Team Providers Care Receptionist Clerk Name Role Phone Jade Muse PCP Unavailable Dionisio Payton PreferredProvider Unavailable Allergies and Adverse Reactions Name Reaction Notes NO KNOWN DRUG ALLERGIES Plan of Treatment Not available. Medications Active Name Start Date Estimated Completion Date SIG Comments valacyclovir 1 gram oral tablet 05/23/2016 take 2 tablets (2,000 mg) by oral route 2 times per day Patanol 0.1 % ophthalmic drops 08/09/2016 instill 1 drop into affected eye( s) by ophthalmic route 2 times per day at an interval of 6 to 8 hours Name Start Date Expiration Date SIG Comments amoxicillin 500 mg oral capsule 06/27/2010 07/07/2010 take 1 capsule by oral route 3 times a day for 10 days Singulair 5 mg oral tablet,chewable 11/15/2010 chew 1 tablets by oral route daily at bedtime Helena 14 mcg/24 hour (3 years) intrauterine intrauterine device 02/02/2016 place 1 device by intrauterine route daily for 1 day Discontinued Name Start Date Discontinued Date SIG [...] HC BMI BSA BMI Percentile O2 Sat(%) 08/09/2016 1:38:00 PM 125 mmHg 70 mmHg 77 bpm 18 rpm 99.5 F 173.125 lbs 62 in 31.66 kg/m2 1.85 m2 98 % 05/23/2016 1:45:00 PM 126 mmHg 70 mmHg 76 bpm 20 rpm 98.5 F 165 lbs 62 in 30.1786 kg/m 1.8094 m 98 % 02/02/2016 2:50:00 PM 124 mmHg 67 mmHg 64 bpm 98.1 F 146 lbs 62 in 26.70 kg/m2 1.70 m2 0 % 10/07/2015 11:28:00 AM 118 mmHg 76 mmHg 104 bpm 96.9 F 170.125 lbs 62 in 31.116 kg/m 1.8373 m 94.5 % 01/05/2015 10:15:00 AM 123 mmHg [...] 01/05/2015 12:00 AM N.GONORRHOEAE DNA AMP PROB Reviewed 01/05/2015 12:00 AM CHLAMYDIA CULTURE Reviewed 01/05/2015 12:00 AM HIV-1ANTIBODY Reviewed 01/05/2015 12:00 AM URINALYSIS AUTO W/SCOPE Reviewed 01/05/2015 12:00 AM OBSTETRIC PANEL Reviewed 03/18/2015 12:00 AM ALPHA-FETOPROTEIN SERUM Reviewed 03/18/2015 12:00 AM CHORIONIC GONADOTROPIN TEST Reviewed 03/18/2015 12:00 AM CHORIONIC GONADOTROPIN ASSAY Reviewed 04/14/2015 12:00 AM OB US >/=14 WKS SNGL FETUS Reviewed 04/14/2015 12:00 AM US EXAM PELVIC COMPLETE Reviewed 06/10/2015 12:00 AM Type and screen Reviewed 06/10/2015 12:00 AM GLUCOSE TOLERANCE TEST (GTT) Reviewed 06/10/2015 12:00 AM COMPLETE CBC W/AUTO DIFF WBC Reviewed 07/22/2015 12:00 AM TDAP VACCINE 7 YRS/> IM Reviewed 07/22/2015 12:00 AM IMMUNIZATION ADMIN Reviewed 08/05/2015 12:00 AM CULTURE SCREEN ONLY Reviewed 02/02/2016 12:00 AM INSERT INTRAUTERINE DEVICE Reviewed 02/02/2016 12:00 AM [place] 3 yr [facility] [id number] Reviewed 08/03/2009 12:00 AM RBC SED RATE AUTOMATED Reviewed 08/03/2009 12:00 AM COMPLETE CBC W/AUTO DIFF WBC Reviewed 08/03/2009 12:00 AM ASSAY OF LEAD Reviewed 08/03/2009 12:00 AM X-RAY EXAM TRUNK SPINE STAND Reviewed 11/14/2013 12:00 AM CHORIONIC GONADOTROPIN TEST Reviewed 06/27/2010 12:00 AM CULTURE OTHR SPECIMN AEROBIC Reviewed 06/27/2010 12:00 AM Decadron Inj.1mg-(C'marie) - 8mg IM x 1 Reviewed 05/29/2014 10:08 AM URINE TEST Reviewed 06/25/2014 10:36 AM URINE TEST Reviewed 06/25/2014 12:00 AM N.GONORRHOEAE DNA AMP PROB Reviewed 06/25/2014 12:00 AM CHLAMYDIA CULTURE Reviewed 06/25/2014 12:00 AM HIV-1ANTIBODY Reviewed 06/25/2014 12:00 AM URINALYSIS AUTO W/SCOPE Reviewed 06/25/2014 12:00 AM OBSTETRIC PANEL Reviewed 06/25/2014 12:00 AM US PREG UTERUS REAL TIME W/IMAGE DCMTN TRANSVAG Reviewed 07/03/2014 12:00 AM US EXAM PELVIC COMPLETE Reviewed 07/03/2014 12:00 AM OB US < 14 WKS SINGLE FETUS Reviewed 10/12/2014 12:00 AM US EXAM PELVIC COMPLETE Reviewed 10/20/2014 12:00 AM US EXAM PELVIC COMPLETE Reviewed Results Summary Date and Description Results 08/03/2009 2:26 PM SEDRATE 29.0 mm/hrMANUAL DIFF PENDING WBC 6.8 RDW SD 42 RDW CV 13.30 %MPV 9.90 fLPLT 330 NRBC# 0.00 NRBC% 0.0 %NEUT 43.10 %%LYMP 41.0 %% MONO 7.20 %%EOS 8.40 %%BASO 0.30 %#NEUT 2.91 #LYMP 2.77 #MONO 0.49 #EOS 0.57 # BASO 0.02 MANUAL DIFF SEE BELOW SEGS 47 BANDS 6 LYMPHS 32 MONOS 6 EOS 9.0 %RBC 4.20 HGB 11.80 g/dLHCT 35.70 %MCV 85.0 fLMCH 28.10 pgMCHC 33.10 g/dL 06/27/2010 2:05 PM Ampicillin 11/14/2013 10:18 AM BETA HCG QUANT 1347.0 mIU/mL 05/29/2014 10:08 AM HCG Ur Ql positive 06/25/2014 10:36 AM HCG Ur Ql positive 06/25/2014 12:30 PM WBC 6.4 RBC 4.58 HGB 13.10 g/dLHCT 39.20 %MCV 86.0 fLMCH 28.60 pgMCHC 33.40 g/dLRDW SD 42 RDW CV 13.60 %MPV 9.50 fLPLT 344 NRBC# 0.00 NRBC% 0.0 %NEUT 58.20 %%LYMP 33.50 %%MONO 6.30 %%EOS 1.70 %%BASO 0.30 %#NEUT 3.72 #LYMP 2.14 #MONO 0.40 #EOS 0.11 #BASO 0.02 MANUAL DIFF NOT IND RPR Non Reactive HIV AG/AB COMBO 0.16 HBsAg Screen Negative Rubella Antibodies, IgG 1.75 Index 06/25/2014 12:32 PM COLOR YELLOW APPEARANCE CLOUDY SPEC GRAV 1.020 pH 8.0 PROTEIN NEGATIVE GLUCOSE NEGATIVE KETONE NEGATIVE BILIRUBIN NEGATIVE BLOOD NEGATIVE NITRITE NEGATIVE LEUK SCREEN NEGATIVE WBC/HPF 0-5 RBC/HPF NEGATIVE CASTS/LPF NEGATIVE CRYSTALS 3+++AMORPHOUS MUCOUS THRDS NEGATIVE BACTERIA FEW EPITH CELLS 1+ SQUAMOUS TRICHOMONAS NEGATIVE YEAST NEGATIVE CULT ORDERED YES 07/09/2014 6:40 AM WBC 10.1 RBC 3.99 HGB 11.40 g/dLHCT 34.0 %MCV 85.0 fLMCH 28.60 pgMCHC 33.50 g/dLRDW SD 41 RDW CV 13.20 %MPV 9.50 fLPLT 273 NRBC# 0.00 NRBC% 0.0 GLUCOSE 132.0 mg/dLSODIUM 139.0 mmol/LPOTASSIUM 4.0 mmol/LCHLORIDE 110.0 mmol/LCO2 21.0 mmol/LBUN 8.0 mg/dLCREATININE 0.60 mg/dLCALCIUM 8.90 mg/ dLAGE 18 GFR NonAA 130 GFR AA 158 eGFR >60 mL/min/1.73 m2eGFR AA* >60 01/05/2015 10:26 AM Test, Urine positive 01/05/2015 12:06 PM WBC 7.4 RBC 4.29 HGB 12.60 g/dLHCT 37.0 %MCV 86.0 fLMCH 29.40 pgMCHC 34.10 g/dLRDW SD 43 RDW CV 13.50 %MPV 9.90 fLPLT 299 NRBC# 0.00 NRBC% 0.0 %NEUT 62.60 %%LYMP 27.80 %%MONO 7.0 %%EOS 2.20 %%BASO 0.40 %#NEUT 4.65 #LYMP 2.06 #MONO 0.52 #EOS 0.16 #BASO 0.03 MANUAL DIFF NOT IND COLOR YELLOW APPEARANCE CLEAR SPEC GRAV 1.020 pH 7.0 PROTEIN NEGATIVE GLUCOSE NEGATIVE mg/dLKETONE NEGATIVE BILIRUBIN NEGATIVE BLOOD NEGATIVE NITRITE NEGATIVE LEUK SCREEN NEGATIVE WBC/HPF NEGATIVE RBC/HPF NEGATIVE CASTS/LPF NEGATIVE /LPFCRYSTALS 2++ AMORPHOUS MUCOUS THRDS 2++ BACTERIA FEW EPITH CELLS FEW SQUAMOUS /HPFTRICHOMONAS NEGATIVE YEAST NEGATIVE CULT ORDERED YES RPR Non Reactive HBsAg Screen Negative HIV AG/AB COMBO 0.13 Rubella Antibodies, IgG 1.95 Index 03/18/2015 3:52 PM Results Report Test Results: *Screen Negative* Gest. Age on CollectionDate 16.3 Gestat. Age Based On As provided Maternal Age At MELO 19.7 Race Weight 166 Insulin Dep Diabetes No Multiple Gestation No AFP Value 0.0382 ug/mLAFP MoM 1.17 hCG Value 07716.0 mIU/mLhCG MoM 0.89 uE3 Value 1.430 ng/mLuE3 MoM 1.62 KITTY Value 122.770 pg/mLDIA MoM 0.72 OSBR Risk 1 IN 7137 DSR (Second Trimester) 1IN [address]372 DSR (By Age) 1 IN 1167 T18 Risk Not increased T18 (By Age) 1:4548 06/10/2015 3:42 PM WBC 11.7 RBC 3.98 HGB 11.80 g/dLHCT 35.0 %MCV 88.0 fLMCH 29.60 pgMCHC 33.70 g/dLRDW SD 41 RDW CV 12.60 %MPV 9.10 fLPLT 320 NRBC# 0.00 NRBC% 0.0 %NEUT 74.80 %%LYMP 17.50 %%MONO 5.50 %%EOS 0.90 %%BASO 0.30 %#NEUT 8.72 #LYMP 2.04 #MONO 0.64 #EOS 0.10 #BASO 0.04 MANUAL DIFF NOT IND 07/26/2015 11:35 AM COLOR YELLOW APPEARANCE CLEAR SPEC GRAV 1.020 pH 7.0 PROTEIN NEGATIVE GLUCOSE NEGATIVE mg/dLKETONE NEGATIVE BILIRUBIN NEGATIVE BLOOD NEGATIVE NITRITE NEGATIVE LEUK SCREEN NEGATIVE MICRO INDICATED? NOT INDICATED 08/05/2015 4:30 PM STREP GROUP B PCR GBS NEGATIVE 08/11/2015 11:50 AM AMNISURE ROM NEGATIVE 08/23/2015 11:45 PM WBC 13.4 RBC 4.00 HGB 11.30 g/dLHCT 33.80 %MCV 85.0 fLMCH 28.30 pgMCHC 33.40 g/dLRDW SD 44 RDW CV 14.60 %MPV 9.70 fLPLT 323 NRBC# 0.00 NRBC% 0.0 %NEUT 73.40 %%LYMP 19.70 %%MONO 5.30 %%EOS 0.70 %%BASO 0.20 %#NEUT 9.84 #LYMP 2.64 #MONO 0.71 #EOS 0.09 #BASO 0.03 MANUAL DIFF NOT IND History Of Immunizations Name Date Admin Mfg Name Mfg Code Trade Name Lot# Route Inj Vis Given Vis Pub CVX Tdap 07/22/2015 GlaxoSmRevision Militaryine SKB BOOSTRIX [id number] Intramuscular Right Deltoid 07/22/2015 [...] 10:11AM Post- Follow-Up Oct 07 2015 11:29AM Visit for insertion of intrauterine device Feb 02 2016 2:52PM Herpes simplex labialis May 23 2016 1:47PM Acute atopic conjunctivitis of right eye Aug 09 2016 1:40PM Payers Insurance Name Company Name Plan Name Plan Number Policy Number Policy Group Number Start Date [facility] [id number] N/A [facility] [id number] N/A [employer] [facility] [place] [id number] Thursday, 2009 [employer] [facility] [place] [id number] Thursday, 2009 History of Encounters Visit Date Visit Type Provider 08/09/2016 Office visit Jade Muse PRINT PRODUCER 05/23/2016 Office visit Dionisio Payton DO 02/02/2016 Office visit Rupali Carter PRINT PRODUCER 10/07/[address] Sirisha Alexander MD 08/24/2015 [facility] ROSY HALL DO 08/19/2015 Office visit Rosy Hall DO 08/13/[address] Sirisha Alexander [...] Alexander MD 01/05/2015 Office visit Rupali Carter PRINT PRODUCER 10/12/2014 Office visit 10/12/2014 Office visit Rupali Carter PRINT PRODUCER 07/08/2014 [facility] Xander Knox MD 06/25/2014 Office visit 06/25/2014 Office visit Xander Knox MD 05/29/2014 Office visit Rupali Carter PRINT PRODUCER 02/02/2014 Office visit Dionisio Payton DO 11/14/2013 Office visit Rupali Carter PRINT PRODUCER 04/24/2011 Office visit BRENT PEÑA PRINT PRODUCER 11/08/2010 Office visit Brent Peña PRINT PRODUCER 06/27/2010 Office visit Brent Peña PRINT PRODUCER 08/03/2009 Office visit Brent Peña PRINT PRODUCER
--- OUTSIDE RECORDS SUMMARY | 2018-04-15 08:12 | XMS REPORT ---
Author Author Sirisha Alexander [facility] Address [address] [place], [place] [address] Care Team Providers Care Donor Services Coordinator Name Role Phone Sirisha Alexander PCP Unavailable Allergies and Adverse Reactions Name Reaction Notes NO KNOWN DRUG ALLERGIES Plan of Treatment Planned Activity Comments Planned Date Planned Time Plan/Goal OB US >/=14 WKS SNGL FETUS 04/14/2015 12:00 AM US EXAM PELVIC COMPLETE 03/30/2015 12:00 AM URINE TEST 02/02/2014 12:00 AM [...] Value 0.0382 ug/mLAFP MoM 1.17 hCG Value 43503.0 mIU/ mLhCG MoM 0.89 uE3 Value 1.430 ng/mLuE3 MoM 1.62 KITTY Value 122.770 pg/mLDIA MoM 0.72 OSBR Risk 1 IN 7137 DSR (Second Trimester) 1IN [address]494 DSR (By Age) 1 IN 1167 T18 [...] Group Number Start Date [facility] [place] [id number] Thursday, 2009 [facility] [facility] [place] [id number] Thursday, 2009 [facility] [id number] N/A [facility] [id number] N/A History of Encounters Visit Date Visit Type Provider 03/18/[address] Sirisha Alexander MD 02/18/[address] Sirisha Alexander MD 01/21/[address] Sirisha Alexander MD 01/05/2015 Office visit Rupali Carter ELECTRONIC TECHNOLOGIST 10/12/2014 Office visit 10/12/2014 Office visit Rupali Carter ELECTRONIC TECHNOLOGIST 07/08/2014 [facility] Xander Knox MD 06/25/2014 Office visit 06/25/2014 Office visit Xander Knox MD 05/29/2014 Office visit Rupali Carter ELECTRONIC TECHNOLOGIST 02/02/2014 Office visit Dionisio Payton DO 11/14/2013 Office visit Rupali Carter ELECTRONIC TECHNOLOGIST 04/24/2011 Office visit BRENT PEÑA ELECTRONIC TECHNOLOGIST 11/08/2010 Office visit Brent Peña ELECTRONIC TECHNOLOGIST 06/27/2010 Office visit Brent Peña ELECTRONIC TECHNOLOGIST 08/03/2009 Office visit Brent Peña ELECTRONIC TECHNOLOGIST
--- OUTSIDE RECORDS SUMMARY | 2018-04-15 08:12 | XMS REPORT ---
Author Rupali Stokes [facility] Address [address] [place], [place] [address] Care Team Providers Care Aircraft Electrical Systems Specialist Name Role Phone Rupali Carter PCP Unavailable [...] Policy Number Policy Group Number Start Date [facility] [id number] N/A [facility] [id number] N/A [facility] [id number] Thursday, 2009 [facility] [id number] Thursday, 2009 History of Encounters Visit Date Visit Type Provider 10/12/2014 Office visit Rupali Carter PERSONAL FINANCIAL REPRESENTATIVE 07/08/2014 [facility] Xander Knox MD 06/25/2014 Office visit Xander Knox MD 05/29/2014 Office visit Rupali Carter PERSONAL FINANCIAL REPRESENTATIVE 02/02/2014 Office visit Dionisio Payton DO 11/14/2013 Office visit Rupali Carter PERSONAL FINANCIAL REPRESENTATIVE 04/24/2011 Office visit BRENT PEÑA PERSONAL FINANCIAL REPRESENTATIVE 11/08/2010 Office visit Brent Peña PERSONAL FINANCIAL REPRESENTATIVE 06/27/2010 Office visit Brent Peña PERSONAL FINANCIAL REPRESENTATIVE 08/03/2009 Office visit Brent Peña PERSONAL FINANCIAL REPRESENTATIVE
--- OUTSIDE RECORDS SUMMARY | 2018-04-15 08:12 | XMS REPORT ---
Author Dionisio Farooq [facility] Address [address] [place], [place] [address] Care Team Providers Care Hot Bread Baker Name Role Phone Dionisio Payton PCP Unavailable [...] Policy Number Policy Group Number Start Date [facility] [id number] N/A [facility] [id number] Thursday, 2009 [facility] [id number] Thursday, 2009 History of Encounters Visit Date Visit Type Provider 06/25/2014 Office visit Xander Knox MD 05/29/2014 Office visit Rupali Carter CREW LEADER GLUING 02/02/2014 Office visit Dionisio Payton DO 11/14/2013 Office visit Rupali Carter CREW LEADER GLUING 04/24/2011 Office visit BRENT PEÑA CREW LEADER GLUING 11/08/2010 Office visit Brent Peña CREW LEADER GLUING 06/27/2010 Office visit Brent Peña CREW LEADER GLUING 08/03/2009 Office visit Brent Peña CREW LEADER GLUING
--- OUTSIDE RECORDS SUMMARY | 2018-04-15 08:12 | XMS REPORT ---
Author Author Sirisha Alexander [facility] Address [address] [place], [place] [id number] Care Team Providers Care Sql Server Architect Name Role Phone Sirisha Alexander PCP Unavailable [...] Value 0.0382 ug/mLAFP MoM 1.17 hCG Value 54058.0 mIU/ mLhCG MoM 0.89 uE3 Value 1.430 ng/mLuE3 MoM 1.62 KITTY Value 122.770 pg/mLDIA MoM 0.72 OSBR Risk 1 IN 7137 DSR (Second Trimester) 1IN 18950 DSR (By Age) 1 IN 1167 T18 [...] Policy Number Policy Group Number Start Date [facility] [id number] N/A [facility] [id number] N/A [employer] [place] [id number] Thursday, 2009 [employer] [place] [id number] Thursday, 2009 History of Encounters Visit Date Visit Type Provider 04/15/[address] Sirisha Alexander MD 03/18/[address] Sirisha Alexander MD 02/18/[address] Sirisha Alexander MD 01/21/[address] Sirisha Alexander MD 01/05/2015 Office visit Rupali Cartre ENVIRONMENTAL SCIENCE PROFESSOR 10/12/2014 Office visit 10/12/2014 Office visit Rupali Carter ENVIRONMENTAL SCIENCE PROFESSOR 07/08/2014 [facility] Xander Knox MD 06/25/2014 Office visit 06/25/2014 Office visit Xander Knox MD 05/29/2014 Office visit Rupali Carter ENVIRONMENTAL SCIENCE PROFESSOR 02/02/2014 Office visit Dionisio Payton DO 11/14/2013 Office visit Rupali Carter ENVIRONMENTAL SCIENCE PROFESSOR 04/24/2011 Office visit BRENT PEÑA ENVIRONMENTAL SCIENCE PROFESSOR 11/08/2010 Office visit Brent Peña ENVIRONMENTAL SCIENCE PROFESSOR 06/27/2010 Office visit Brent Peña ENVIRONMENTAL SCIENCE PROFESSOR 08/03/2009 Office visit Brent Peña ENVIRONMENTAL SCIENCE PROFESSOR
--- OUTSIDE RECORDS SUMMARY | 2018-04-15 08:13 | XMS REPORT ---
Author Dionisio Farooq [facility] Address [address] [place], [place] [address] Care Team Providers Care Image Assembler Name Role Phone Dionisio Payton PCP Unavailable [...] Policy Number Policy Group Number Start Date [facility] [id number] N/[facility] [id number] Thursday, 2009 [facility] [id number] Thursday, 2009 History of Encounters Visit Date Visit Type Provider 06/25/2014 Office visit Xander Knox MD 05/29/2014 Office visit Rupali Carter OFFSET PRESSMAN 02/02/2014 Office visit Dionisio Payton DO 11/14/2013 Office visit Rupali Carter OFFSET PRESSMAN 04/24/2011 Office visit BRENT PEÑA OFFSET PRESSMAN 11/08/2010 Office visit Brent Peña OFFSET PRESSMAN 06/27/2010 Office visit Brent Peña OFFSET PRESSMAN 08/03/2009 Office visit Brent Peña OFFSET PRESSMAN
--- OUTSIDE RECORDS SUMMARY | 2018-04-15 08:13 | XMS REPORT ---
Author Author Sirisha Alexander [facility] Address [address] [place], [place] [address] Care Team Providers Care Vibration Technician Name Role Phone Sirisha Alexander PCP [...] Value 0.0382 ug/mLAFP MoM 1.17 hCG Value 51843.0 mIU/ mLhCG MoM 0.89 uE3 Value 1.430 ng/mLuE3 MoM 1.62 KITTY Value 122.770 pg/mLDIA MoM 0.72 OSBR Risk 1 IN 7137 DSR (Second Trimester) 1IN [address]441 DSR (By Age) 1 IN 1167 T18 [...] Policy Number Policy Group Number Start Date [facility] [id number] N/A [facility] [id number] N/A [employer] [place] [id number] Thursday, 2009 [employer] [place] [id number] Thursday, 2009 History of Encounters Visit Date Visit Type Provider 04/15/[address] Sirisha Alexander MD 03/18/[address] Sirisha Alexander MD 02/18/[address] Sirisha Alexander MD 01/21/[address] Sirisha Alexander MD 01/05/2015 Office visit Rupali Carter MATERIAL LIAISON 10/12/2014 Office visit 10/12/2014 Office visit Rupali Carter MATERIAL LIAISON 07/08/2014 [facility] Xander Knox MD 06/25/2014 Office visit 06/25/2014 Office visit Xander Knox MD 05/29/2014 Office visit Rupali Carter MATERIAL LIAISON 02/02/2014 Office visit Dionisio Payton DO 11/14/2013 Office visit Rupali Carter MATERIAL LIAISON 04/24/2011 Office visit BRENT PEÑA MATERIAL LIAISON 11/08/2010 Office visit Brent Peña MATERIAL LIAISON 06/27/2010 Office visit Brent Peña MATERIAL LIAISON 08/03/2009 Office visit Brent Peña MATERIAL LIAISON
--- OUTSIDE RECORDS SUMMARY | 2018-04-15 08:14 | XMS REPORT ---
Author Author Rupali Carter [facility] Address [address] [place], [place] [id number] Care Team Providers Care Utilization Supervisor Name Role Phone Rupali Carter PCP Unavailable [...] Group Number Start Date [employer] [place] [id number] Thursday, 2009 [employer] [place] [id number] Thursday, 2009 [facility] [id number] N/A [facility] [id number] N/A History of Encounters Visit Date Visit Type Provider 01/05/2015 Office visit Rupali Carter DRY BOX OPERATOR 10/12/2014 Office visit Rupali Carter DRY BOX OPERATOR 07/08/2014 [facility] Xander Knox MD 06/25/2014 Office visit Xander Knox MD 05/29/2014 Office visit Rupali Carter DRY BOX OPERATOR 02/02/2014 Office visit Dionisio Payton DO 11/14/2013 Office visit Rupali Carla Carter DRY BOX OPERATOR 04/24/2011 Office visit BRENT PEÑA DRY BOX OPERATOR 11/08/2010 Office visit Brent Peña DRY BOX OPERATOR 06/27/2010 Office visit Brent Peña DRY BOX OPERATOR 08/03/2009 Office visit Brent Peña DRY BOX OPERATOR
--- OUTSIDE RECORDS SUMMARY | 2018-04-15 08:14 | XMS REPORT ---
Author Rupali Stokes [facility] Address [address] [place], [place] [address] Care Team Providers Care Forest Fire Control Officer Name Role Phone Rupali Carter PCP TataDionisio pope PreferredProvider Allergies and Adverse Reactions Name Reaction Notes NO KNOWN DRUG ALLERGIES Plan of Treatment Not available. Medications Name Start Date Expiration Date SIG [...] 1 tablet by oral route once daily valacyclovir 1 gram oral tablet 05/23/2016 01/03/2017 take 2 tablets (2,000 mg) by oral route 2 times per day Patanol 0.1 % ophthalmic drops 08/09/2016 01/03/2017 instill 1 drop into affected eye(s) by ophthalmic route 2 times per day at an interval of 6 to 8 hours Problem List Not available. Vital Signs Date Time BP-Sys(mm[Hg] BP-Kitty(mm[Hg]) HR(bpm) RR(rpm) Temp WT HT HC BMI BSA BMI Percentile O2 Sat(%) 03/20/2017 2:24:00 PM 124 mmHg 71 mmHg 68 bpm 98.9 F 189 lbs 62 in 34.57 kg/m2 1.94 m2 01/30/2017 6:37:00 PM 112 mmHg 70 mmHg 75 bpm 16 rpm 98.5 F 187 lbs 62 in 34.2024 kg/m 1.9263 m 99 % 01/03/2017 6:28:00 PM 112 mmHg 68 mmHg 77 bpm 18 rpm 99.2 F 170 lbs 62 in 31.09 kg/m2 1.84 m2 98 % 08/09/2016 1:38:00 PM 125 mmHg 70 mmHg 77 bpm 18 rpm 99.5 F 173.125 lbs 62 in 31.6647 kg/m 1.8534 m 98 % 05/23/2016 1:45:00 PM 126 mmHg 70 mmHg 76 bpm 20 rpm 98.5 F 165 lbs 62 in 30.18 kg/m2 1.81 m2 98 % 02/02/2016 2:50:00 PM 124 mmHg 67 mmHg 64 bpm 98.1 F 146 lbs 62 in 26.7035 kg/m 1.702 m 0 % 10/07/2015 11:28:00 AM 118 mmHg [...] Reviewed 02/02/2016 12:00 AM [place] 3 yr [facility] [id number] Reviewed 01/03/2017 7:06 PM URINALYSIS AUTO W/O SCOPE Reviewed 01/03/2017 7:06 PM URINE TEST Reviewed 03/20/2017 12:00 AM REMOVE INTRAUTERINE DEVICE Reviewed 08/03/2009 12:00 AM RBC SED RATE [...] 2:26 PM SEDRATE 29.0 mm/hrMANUAL DIFF PENDING 06/27/2010 2:05 PM Ampicillin 11/14/2013 10:18 AM [...] 0.11 #BASO 0.02 MANUAL DIFF NOT IND HIV AG/AB COMBO 0.16 Rubella Antibodies, IgG 1.75 Index 06/25/2014 12:32 PM COLOR YELLOW APPEARANCE CLOUDY SPEC GRAV 1.020 pH 8.0 PROTEIN NEGATIVE GLUCOSE NEGATIVE KETONE NEGATIVE BILIRUBIN NEGATIVE BLOOD NEGATIVE NITRITE NEGATIVE LEUK SCREEN NEGATIVE WBC/HPF 0-5 RBC/HPF NEGATIVE CASTS/LPF NEGATIVE CRYSTALS 3+++AMORPHOUS MUCOUS THRDS NEGATIVE BACTERIA FEW EPITH CELLS 1+ SQUAMOUS TRICHOMONAS NEGATIVE YEAST NEGATIVE CULT ORDERED YES 01/05/2015 10:26 AM Test, Urine positive 01/05/2015 [...] NEGATIVE CULT ORDERED YES RPR Non Reactive HIV AG/AB COMBO 0.13 Rubella Antibodies, IgG 1.95 Index 03/18/2015 3:52 PM Results Report Test Results: *Screen Negative* Gest. Age on CollectionDate 16.3 Gestat. Age Based On As provided M[age] Age At MELO 19.7 Race Weight 166 Insulin Dep Diabetes No Multiple Gestation No AFP Value 0.0382 ug/mLAFP MoM 1.17 hCG Value 61976.0 mIU/mLhCG MoM 0.89 uE3 Value 1.430 ng/mLuE3 MoM 1.62 KITTY Value 122.770 pg/mLDIA MoM 0.72 OSBR Risk 1 IN 7137 DSR (Second Trimester) 1IN [address]251 DSR (By Age) 1 IN 1167 T18 [...] 0.10 #BASO 0.04 MANUAL DIFF NOT IND 08/05/2015 4:30 PM STREP GROUP B PCR GBS NEGATIVE 01/03/2017 7:06 PM Clarity Ur CLEAR Color Ur YELLOW Glucose Ur-sCnc NEGATIVE Bilirub Ur Ql Strip NEGATIVE Ketones Ur Ql Strip NEGATIVE Sp Gr Ur Qn 1.015 Hgb Ur Ql Strip NEGATIVE pH Ur-LsCnc 7.5 Prot Ur Ql Strip NEGATIVE Urobilinogen Ur- mCnc 0.2 E.U Nitrite Ur Ql Strip NEGATIVE WBC Est Ur Ql Strip TRACE Test, Urine NEGATIVE History Of Immunizations Name Date Admin Mfg Name Mfg Code Trade Name Lot# Route Inj Vis Given Vis Pub CVX Tdap 07/22/2015 DelaGet SKB BOOSTRIX [id number] Intramuscular Right Deltoid 07/22/2015 [...] of right eye Aug 09 2016 1:40PM Nausea & vomiting Jan 03 2017 6:31PM Ear pain Jan 03 2017 6:31PM Gastroenteritis Jan 30 2017 6:39PM Encounter for IUD removal Mar 20 2017 2:26PM Payers Insurance Name Company Name Plan Name Plan Number Policy Number Policy Group Number Start Date [facility] [id number] N/A [facility] [id number] N/A [employer] [place] [id number] Thursday, 2009 [employer] [place] [id number] Thursday, 2009 History of Encounters Visit Date Visit Type Provider 03/20/2017 Office visit Rupali Carter SUPERVISOR ELEMENTARY EDUCATION 01/30/2017 Office visit Rupali Trotter SUPERVISOR ELEMENTARY EDUCATION 01/03/2017 Office visit Rupali Trotter SUPERVISOR ELEMENTARY EDUCATION 08/09/2016 Office visit Jade Muse SUPERVISOR ELEMENTARY EDUCATION 05/23/2016 Office visit Dionisio Payton DO 02/02/2016 Office visit Rupali Carter SUPERVISOR ELEMENTARY EDUCATION 10/07/[address] Sirisha Alexander MD 08/24/2015 Hospital WALTER HALL DO 08/19/2015 Office visit Walter Hall DO 08/13/[address] Sirisha [...] Alexander MD 01/05/2015 Office visit Rupali Carter SUPERVISOR ELEMENTARY EDUCATION 10/12/2014 Office visit 10/12/2014 Office visit Rupali Carter SUPERVISOR ELEMENTARY EDUCATION 07/08/2014 Hospital Xander Knox MD 06/25/2014 Office visit 06/25/2014 Office visit Xander Knox MD 05/29/2014 Office visit Rupali Carter SUPERVISOR ELEMENTARY EDUCATION 02/02/2014 Office visit Dionisio Payton DO 11/14/2013 Office visit Rupali Carter SUPERVISOR ELEMENTARY EDUCATION 04/24/2011 Office visit BRENT PEÑA SUPERVISOR ELEMENTARY EDUCATION 11/08/2010 Office visit Brent Peña SUPERVISOR ELEMENTARY EDUCATION 06/27/2010 Office visit Brent Peña SUPERVISOR ELEMENTARY EDUCATION 08/03/2009 Office visit Brent Peña SUPERVISOR ELEMENTARY EDUCATION
--- OUTSIDE RECORDS SUMMARY | 2018-04-15 08:15 | XMS REPORT ---
Author Author Sirisha Alexander [facility] Address [address] [place], [place] [phone] Care Team Providers Care Hand Cloth Cutter Name Role Phone Sirisha Alexander PCP Unavailable Allergies and Adverse Reactions Name Reaction Notes NO KNOWN DRUG ALLERGIES Plan of Treatment Planned Activity Comments Planned Date Planned Time Plan/Goal CULTURE SCREEN ONLY 08/05/2015 12:00 AM URINE TEST 02/02/2014 12:00 AM [...] Value 0.0382 ug/mLAFP MoM 1.17 hCG Value 73282.0 mIU/ mLhCG MoM 0.89 uE3 Value 1.430 ng/mLuE3 MoM 1.62 KITTY Value 122.770 pg/mLDIA MoM 0.72 OSBR Risk 1 IN 7137 DSR (Second Trimester) 1IN 25418 DSR (By Age) 1 IN 1167 T18 [...] Vis Given Vis Pub CVX Tdap 07/22/2015 Timbre SKB BOOSTRIX [id number] Intramuscular Right Deltoid 07/22/2015 [...] Policy Number Policy Group Number Start Date [facility] - [facility] [id number] N/A [facility] [id number] N/A [employer] [place] [id number] Thursday, 2009 [employer] [place] [id number] Thursday, 2009 History of Encounters Visit Date [...] Alexander MD 01/05/2015 Office visit Rupali Carter SITE AUDITOR 10/12/2014 Office visit 10/12/2014 Office visit Rupali Carter SITE AUDITOR 07/08/2014 [facility] Xander Knox MD 06/25/2014 Office visit 06/25/2014 Office visit Xander Knox MD 05/29/2014 Office visit Rupali Carter SITE AUDITOR 02/02/2014 Office visit Dionisio Payton DO 11/14/2013 Office visit Rupali Carter SITE AUDITOR 04/24/2011 Office visit BRENT PEÑA SITE AUDITOR 11/08/2010 Office visit Brent Peña SITE AUDITOR 06/27/2010 Office visit Brent Peña SITE AUDITOR 08/03/2009 Office visit Brent Peña SITE AUDITOR
--- OUTSIDE RECORDS SUMMARY | 2018-04-15 08:15 | XMS REPORT ---
Author Rupali Stokes [facility] Address [address] [place], [place] [address] Care Team Providers Care Air Reduction Equipment Operator Name Role Phone Rupali Carter PCP Unavailable Dionisio Payton PreferredProvider Unavailable Allergies and Adverse Reactions Name Reaction Notes NO KNOWN DRUG ALLERGIES Plan of Treatment Planned Activity Comments Planned Date Planned Time Plan/Goal Test 02/02/2014 12:00 AM Medications Active Name Start Date Estimated Completion Date SIG Comments [place] 14 mcg/24 hour (3 years) intrauterine intrauterine device 02/02/2016 place 1 device by intrauterine route daily for 1 day Name Start Date Expiration Date SIG Comments [...] HC BMI BSA BMI Percentile O2 Sat(%) 02/02/2016 2:50:00 PM 124 mmHg 67 mmHg [...] US EXAM PELVIC COMPLETE Reviewed Results Summary Data and Description Results 08/03/2009 [...] Value 0.0382 ug/mLAFP MoM 1.17 hCG Value 90455.0 mIU/mLhCG MoM 0.89 uE3 Value 1.430 ng/mLuE3 MoM 1.62 KITTY Value 122.770 pg/mLDIA MoM 0.72 OSBR Risk 1 IN 7137 DSR (Second Trimester) 1IN [address]40 DSR (By Age) 1 IN 1167 T18 [...] 11.30 g/dLHCT 33.80 %MCV 85.0 fLMCH 28.30 pgHC 33.40 g/dLRDW SD 44 RDW CV 14.60 %MPV 9.70 fLPLT 323 NRBC# 0.00 NRBC% 0.0 %NEUT 73.40 %%LYMP 19.70 %%MONO 5.30 %%EOS 0.70 %%BASO 0.20 %#NEUT 9.84 #LYMP 2.64 #MONO 0.71 #EOS 0.09 #BASO 0.03 MANUAL DIFF NOT IND History Of Immunizations Name Date Admin Mfg Name Mfg Code Trade Name Lot# Route Inj Vis Given Vis Pub CVX Tdap 07/22/2015 Celotor SKB BOOSTRIX [id number] Intramuscular Right Deltoid 07/22/2015 [...] of intrauterine device Feb 02 2016 2:52PM Payers Insurance Name Company Name Plan Name Plan Number Policy Number Policy Group Number Start Date [facility] [id number] N/A [facility] [id number] N/A [employer] [place] [id number] Thursday, 2009 [employer] [place] [id number] Thursday, 2009 History of Encounters Visit Date Visit Type Provider 02/02/2016 Office visit Rupali Carter GRINDING ROOM INSPECTOR 10/07/[address] Sirisha Alexander MD 08/24/2015 Hospital RSOY HALL DO 08/19/2015 Office visit Rosy Hall DO 08/13/[address] Sirisha Alexander MD 08/05/[address] Sirisha Alexander MD 07/22/[address] iSrisha Alexander MD 07/08/[address] Sirisha Alexander MD 06/10/[address] Sirisha Alexander MD 05/13/[address] Sirisha Alexander MD 04/15/[address] Sirisha Alexander MD 03/18/[address] Sirisha Alexander MD 02/18/[address] Sirisha Alexander MD 01/21/[address] Sirisha Alexander MD 01/05/2015 Office visit Rupali Carter GRINDING ROOM INSPECTOR 10/12/2014 Office visit 10/12/2014 Office visit Rupali Carter GRINDING ROOM INSPECTOR 07/08/2014 Hospital Xander Knox MD 06/25/2014 Office visit 06/25/2014 Office visit Xander Knox MD 05/29/2014 Office visit Rupali Carter GRINDING ROOM INSPECTOR 02/02/2014 Office visit Dionisio Payton DO 11/14/2013 Office visit Rupali Carter GRINDING ROOM INSPECTOR 04/24/2011 Office visit BRENT PEÑA GRINDING ROOM INSPECTOR 11/08/2010 Office visit Brent Peña GRINDING ROOM INSPECTOR 06/27/2010 Office visit Brent Peña GRINDING ROOM INSPECTOR 08/03/2009 Office visit Brent Peña APRN
--- OUTSIDE RECORDS SUMMARY | 2018-04-15 08:16 | XMS REPORT ---
Author Author Sirisha Alexander [facility] Address [address] [place], [place] [address] Care Team Providers Care Tubing Machine Operator Name Role Phone Sirisha Alexander PCP [...] Number Start Date [employer] [employer] [place] [id number] Thursday, 2009 [facility] [facility] [place] [id number] Thursday, 2009 [facility] [id number] N/A [facility] [id number] N/A History of Encounters Visit Date Visit Type Provider 01/21/[address] Sirisha Alexander MD 01/05/2015 Office visit Rupali Carter SCHOOL MANAGER 10/12/2014 Office visit Rupali Carter SCHOOL MANAGER 07/08/2014 [facility] Xander Knox MD 06/25/2014 Office visit Xander Knox MD 05/29/2014 Office visit Rupali Carter SCHOOL MANAGER 02/02/2014 Office visit Dionisio Payton DO 11/14/2013 Office visit Rupali Carter SCHOOL MANAGER 04/24/2011 Office visit BRENT PEÑA SCHOOL MANAGER 11/08/2010 Office visit Brent Peña SCHOOL MANAGER 06/27/2010 Office visit Brent Peña SCHOOL MANAGER 08/03/2009 Office visit Brent Peña SCHOOL MANAGER
--- OUTSIDE RECORDS SUMMARY | 2018-04-15 08:16 | XMS REPORT ---
Author Author Sirisha Alexander [facility] Address [address] [place], [place] [address] Care Team Providers Care Virology Teacher Name Role Phone Sirisha Alexander PCP [...] 12:00 AM US EXAM PELVIC COMPLETE Returned 08/03/2009 12:00 AM RBC SED RATE [...] Value 0.0382 ug/mLAFP MoM 1.17 hCG Value 72220.0 mIU/ mLhCG MoM 0.89 uE3 Value 1.430 ng/mLuE3 MoM 1.62 KITTY Value 122.770 pg/mLDIA MoM 0.72 OSBR Risk 1 IN 7137 DSR (Second Trimester) 1IN [address]8556 DSR (By Age) 1 IN 1167 T18 [...] Policy Group Number Start Date [facility] [id number] N/A [facility] [id number] N/A [employer] [place] [id number] Thursday, 2009 [employer] [place] [id number] Thursday, 2009 History of Encounters Visit Date Visit Type Provider 06/10/[address] Sirisha Alexander MD 05/13/[address] Sirisha Alexander MD 04/15/[address] Sirisha Alexander MD 03/18/[address] Sirisha Alexander MD 02/18/[address] Sirisha Alexander MD 01/21/[address] Sirisha Alexander MD 01/05/2015 Office visit Rupali Carter PROOF PLATE MAKER 10/12/2014 Office visit 10/12/2014 Office visit Rupali Carter PROOF PLATE MAKER 07/08/2014 [facility] Xander Knox MD 06/25/2014 Office visit 06/25/2014 Office visit Xander Knox MD 05/29/2014 Office visit Rupali Carter PROOF PLATE MAKER 02/02/2014 Office visit Dionisio Payton DO 11/14/2013 Office visit Rupali Carter PROOF PLATE MAKER 04/24/2011 Office visit BRENT PEÑA PROOF PLATE MAKER 11/08/2010 Office visit Brent Peña PROOF PLATE MAKER 06/27/2010 Office visit Brent Peña PROOF PLATE MAKER 08/03/2009 Office visit Brent Peña PROOF PLATE MAKER
--- OUTSIDE RECORDS SUMMARY | 2018-04-15 08:17 | XMS REPORT ---
Author Rosy Person [facility] Address [address] [place], [place] [address] Care Team Providers Care Store Standards Associate Name Role Phone Rosy Mcclain PCP Unavailable [...] Value 0.0382 ug/mLAFP MoM 1.17 hCG Value 05222.0 mIU/ mLhCG MoM 0.89 uE3 Value 1.430 ng/mLuE3 MoM 1.62 KITTY Value 122.770 pg/mLDIA MoM 0.72 OSBR Risk 1 IN 7137 DSR (Second Trimester) 1IN 15406 DSR (By Age) 1 IN 1167 T18 [...] Vis Given Vis Pub CVX Tdap 07/22/2015 [place] SKB BOOSTRIX [id number] Intramuscular Right Deltoid 07/22/2015 [...] Policy Group Number Start Date [facility] [id number] N/A [facility] [id number] N/A [employer] [place] [id number] Thursday, 2009 [employer] [place] [id number] Thursday, 2009 History of Encounters Visit Date [...] Alexander MD 01/05/2015 Office visit Rupali Carter PROPERTY MANAGEMENT ASSISTANT 10/12/2014 Office visit 10/12/2014 Office visit Rupali Carter PROPERTY MANAGEMENT ASSISTANT 07/08/2014 [facility] Xander Knox MD 06/25/2014 Office visit 06/25/2014 Office visit Xander Knox MD 05/29/2014 Office visit Rupali Carter PROPERTY MANAGEMENT ASSISTANT 02/02/2014 Office visit Dionisio Payton DO 11/14/2013 Office visit Rupali Carter PROPERTY MANAGEMENT ASSISTANT 04/24/2011 Office visit BRENT PEÑA PROPERTY MANAGEMENT ASSISTANT 11/08/2010 Office visit Brent Peña PROPERTY MANAGEMENT ASSISTANT 06/27/2010 Office visit Brent Peña PROPERTY MANAGEMENT ASSISTANT 08/03/2009 Office visit Brent Peña PROPERTY MANAGEMENT ASSISTANT
--- OUTSIDE RECORDS SUMMARY | 2018-04-15 08:17 | XMS REPORT ---
Author Author Rupali Trotter [facility] Address [address] [place], [place] [address] Care Team Providers Care Cork Sorter Name Role Phone Rupali Trotter PCP Unavailable Dionisio Payton PreferredProvider Unavailable Allergies [...] HC BMI BSA BMI Percentile O2 Sat(%) 01/03/2017 6:28:00 PM 112 mmHg 68 mmHg [...] 02/02/2016 12:00 AM [place] 3 [address] [facility]# [id number] Reviewed 01/03/2017 7:06 PM URINALYSIS AUTO W/O SCOPE Reviewed 01/03/2017 7:06 PM URINE TEST Reviewed 08/03/2009 12:00 AM RBC [...] Value 0.0382 ug/mLAFP MoM 1.17 hCG Value 16165.0 mIU/mLhCG MoM 0.89 uE3 Value 1.430 ng/mLuE3 MoM 1.62 KITTY Value 122.770 pg/mLDIA MoM 0.72 OSBR Risk 1 IN 7137 DSR (Second Trimester) 1IN [address]648 DSR (By Age) 1 IN 1167 T18 [...] Vis Given Vis Pub CVX Tdap 07/22/2015 JellyCloud SKB BOOSTRIX [id number] Intramuscular Right Deltoid 07/22/2015 [...] 6:31PM Ear pain Jan 03 2017 6:31PM Payers Insurance Name Company Name Plan Name Plan Number Policy Number Policy Group Number Start Date [facility] [id number] N/A [facility] [id number] N/A BCBS [employer]bs [facility] [id number] Thursday, 2009 [employer]BS [employer] [facility] [id number] Thursday, 2009 History of Encounters Visit Date Visit Type Provider 01/03/2017 Office visit Rupali Trotter FOREST LAW AND POLICY PROFESSOR 08/09/2016 Office visit Jade Muse FOREST LAW AND POLICY PROFESSOR 05/23/2016 Office visit Dionisio Payton DO 02/02/2016 Office visit Rupali Carter FOREST LAW AND POLICY PROFESSOR 10/07/[address] Sirisha Alexander MD 08/24/2015 Hospital ROSY HALL DO 08/19/2015 Office visit Rosyaba Hall DO 08/13/[address] Sirisha [...] Alexander MD 01/05/2015 Office visit Rupali Carter FOREST LAW AND POLICY PROFESSOR 10/12/2014 Office visit 10/12/2014 Office visit Rupali Carter FOREST LAW AND POLICY PROFESSOR 07/08/2014 Hospital Xander Knox MD 06/25/2014 Office visit 06/25/2014 Office visit Xander Knox MD 05/29/2014 Office visit Rupali Carter FOREST LAW AND POLICY PROFESSOR 02/02/2014 Office visit Dionisio Payton DO 11/14/2013 Office visit Rupali Carter FOREST LAW AND POLICY PROFESSOR 04/24/2011 Office visit BRENT PEÑA FOREST LAW AND POLICY PROFESSOR 11/08/2010 Office visit Brent Peña FOREST LAW AND POLICY PROFESSOR 06/27/2010 Office visit Brent Peña FOREST LAW AND POLICY PROFESSOR 08/03/2009 Office visit Brent Peña FOREST LAW AND POLICY PROFESSOR
--- OUTSIDE RECORDS SUMMARY | 2018-04-15 08:18 | XMS REPORT ---
Author Author Sirisha Alexander [facility] Address [address] [place], [place] [id number] Care Team Providers Care Steel Welder Name Role Phone Sirisha Alexander PCP Unavailable [...] Value 0.0382 ug/mLAFP MoM 1.17 hCG Value 93306.0 mIU/ mLhCG MoM 0.89 uE3 Value 1.430 ng/mLuE3 MoM 1.62 KITTY Value 122.770 pg/mLDIA MoM 0.72 OSBR Risk 1 IN 7137 DSR (Second Trimester) 1IN 41147 DSR (By Age) 1 IN 1167 T18 [...] Policy Number Policy Group Number Start Date [facility] [id number] N/A [facility] [id number] N/A BCBS Bcbs [facility] [id number] Thursday, 2009 [employer]BS [employer] [place] [id number] Thursday, 2009 History of Encounters Visit Date Visit Type Provider 07/08/[address] Sirisha Alexander MD 06/10/[address] Sirisha Alexander MD 05/13/[address] Sirisha Alexander MD 04/15/[address] Sirisha Alexander MD 03/18/[address] Sirisha Alexander MD 02/18/[address] Sirisha Alexander MD 01/21/[address] Sirsiha Alexander MD 01/05/2015 Office visit Rupali Carter THERAPEUTIC SPECIALIST 10/12/2014 Office visit 10/12/2014 Office visit Rupali Carter THERAPEUTIC SPECIALIST 07/08/2014 [facility] Xander Knox MD 06/25/2014 Office visit 06/25/2014 Office visit Xander Knox MD 05/29/2014 Office visit Rupali Carter THERAPEUTIC SPECIALIST 02/02/2014 Office visit Dionisio Payton DO 11/14/2013 Office visit Rupali Carter THERAPEUTIC SPECIALIST 04/24/2011 Office visit BRENT PEÑA THERAPEUTIC SPECIALIST 11/08/2010 Office visit Brent Peña THERAPEUTIC SPECIALIST 06/27/2010 Office visit Brent Peña THERAPEUTIC SPECIALIST 08/03/2009 Office visit Brent Peña THERAPEUTIC SPECIALIST
--- OUTSIDE RECORDS SUMMARY | 2018-04-15 08:18 | XMS REPORT ---
Author Author Sirisha Alexander [facility] Address [address] [place], [place] [id number] Care Team Providers Care Associate Technician Name Role Phone Sirisha Alexander PCP Unavailable Allergies and Adverse Reactions Name Reaction Notes NO KNOWN DRUG ALLERGIES Plan of Treatment Planned Activity Comments Planned Date Planned Time Plan/Goal GLUCOSE TOLERANCE TEST (GTT) 06/10/2015 12:00 AM COMPLETE CBC W/AUTO DIFF WBC 06/10/2015 12:00 AM URINE TEST 02/02/2014 12:00 AM [...] Value 0.0382 ug/mLAFP MoM 1.17 hCG Value 75966.0 mIU/ mLhCG MoM 0.89 uE3 Value 1.430 ng/mLuE3 MoM 1.62 KITTY Value 122.770 pg/mLDIA MoM 0.72 OSBR Risk 1 IN 7137 DSR (Second Trimester) 1IN 85496 DSR (By Age) 1 IN 1167 T18 [...] Policy Number Policy Group Number Start Date [facility] [id number] N/A [facility] [id number] N/A BCBS Bcbs [facility] [id number] Thursday, 2009 BCBS [employer] [place] [id number] Thursday, 2009 History of Encounters Visit Date Visit Type Provider 06/10/[address] Sirisha Alexander MD 05/13/[address] Sirisha Alexander MD 04/15/[address] Sirisha Alexander MD 03/18/[address] Sirisha Alexander MD 02/18/[address] Sirisha Alexander MD 01/21/[address] Sirisha Alexander MD 01/05/2015 Office visit Rupali Carter OCCUPATIONAL THERAPY ASSISTANT 10/12/2014 Office visit 10/12/2014 Office visit Rupail Carter OCCUPATIONAL THERAPY ASSISTANT 07/08/2014 Hospital Xander Knox MD 06/25/2014 Office visit 06/25/2014 Office visit Xander Knox MD 05/29/2014 Office visit Rupali Carter OCCUPATIONAL THERAPY ASSISTANT 02/02/2014 Office visit Dionisio Payton DO 11/14/2013 Office visit Rupali Carter OCCUPATIONAL THERAPY ASSISTANT 04/24/2011 Office visit BRENT PEÑA OCCUPATIONAL THERAPY ASSISTANT 11/08/2010 Office visit Brent Peña OCCUPATIONAL THERAPY ASSISTANT 06/27/2010 Office visit Brent Peña OCCUPATIONAL THERAPY ASSISTANT 08/03/2009 Office visit Brent Peña APRN
--- OUTSIDE RECORDS SUMMARY | 2018-04-15 08:19 | XMS REPORT ---
Author Author Sirisha Alexander [facility] Address [address] [place], [place] [id number] Care Team Providers Care Career Technical Education Instructor Name Role Phone Sirsiha Alexander PCP Unavailable Allergies and Adverse Reactions [...] Value 0.0382 ug/mLAFP MoM 1.17 hCG Value 45678.0 mIU/ mLhCG MoM 0.89 uE3 Value 1.430 ng/mLuE3 MoM 1.62 KITTY Value 122.770 pg/mLDIA MoM 0.72 OSBR Risk 1 IN 7137 DSR (Second Trimester) 1IN 85697 DSR (By Age) 1 IN 1167 T18 [...] Group Number Start Date [facility] [id number] N/A [facility] [id number] N/A BCBS [employer] [place] [id number] Thursday, 2009 [employer] [place] [place] [id number] Thursday, 2009 History of Encounters Visit Date Visit Type Provider 05/13/[address] Sirisha Alexander MD 04/15/[address] Sirisha Alexander MD 03/18/[address] Sirisha Alexander MD 02/18/[address] Sirisha Alexander MD 01/21/[address] Sirisha Alexander MD 01/05/2015 Office visit Rupali Carter CHANGE ADVISOR 10/12/2014 Office visit 10/12/2014 Office visit Rupali Carter CHANGE ADVISOR 07/08/2014 [facility] Xander Knox MD 06/25/2014 Office visit 06/25/2014 Office visit Xander Knox MD 05/29/2014 Office visit Rupali Carter CHANGE ADVISOR 02/02/2014 Office visit Dionisio Payton DO 11/14/2013 Office visit Rupali Carter CHANGE ADVISOR 04/24/2011 Office visit BRENT PEÑA CHANGE ADVISOR 11/08/2010 Office visit Brent Peña CHANGE ADVISOR 06/27/2010 Office visit Brent Peña CHANGE ADVISOR 08/03/2009 Office visit Brent Peña CHANGE ADVISOR
--- OUTSIDE RECORDS SUMMARY | 2018-04-15 08:20 | XMS REPORT ---
Author Author Dionisio Payton [facility] Address [address] [place], [place] [phone] Care Team Providers Care Sap Ppm Consultant Name Role Phone Dionisio Payton PCP Unavailable Doinisio Payton PreferredProvider Unavailable Allergies and Adverse Reactions Name Reaction Notes NO KNOWN DRUG ALLERGIES Plan of Treatment Not available. Medications Active Name Start Date Estimated Completion Date SIG Comments valacyclovir 1 gram oral tablet 05/23/2016 take 2 tablets (2,000 mg) by oral route 2 times per day Name Start Date Expiration Date SIG [...] HC BMI BSA BMI Percentile O2 Sat(%) 05/23/2016 1:45:00 PM 126 mmHg 70 mmHg [...] Reviewed 02/02/2016 12:00 AM [place] 3 yr [facility]# [id number] Reviewed 08/03/2009 12:00 AM RBC SED RATE [...] Value 0.0382 ug/mLAFP MoM 1.17 hCG Value 68040.0 mIU/mLhCG MoM 0.89 uE3 Value 1.430 ng/mLuE3 MoM 1.62 KITTY Value 122.770 pg/mLDIA MoM 0.72 OSBR Risk 1 IN 7137 DSR (Second Trimester) 1IN 53490 DSR (By Age) 1 IN 1167 T18 [...] Vis Given Vis Pub CVX Tdap 07/22/2015 [employer] SKB BOOSTRIX [id number] Intramuscular Right Deltoid 07/22/2015 [...] Herpes simplex labialis May 23 2016 1:47PM Payers Insurance Name Company Name Plan Name Plan Number Policy Number Policy Group Number Start Date [facility] [id number] N/A [facility] [id number] N/A BCBS [employer] [place] [id number] Thursday, 2009 [employer] [place] [id number] Thursday, 2009 History of Encounters Visit Date Visit Type Provider 05/23/2016 Office visit Dionisio Payton DO 02/02/2016 Office visit Rupali Carter SECURITY SALES MANAGER 10/07/[address] Sirisha Alexander MD 08/24/2015 [facility]2015 Office visit Rosy Galloway DO 08/13/[address] Sirisha Alexander [...] Alexander MD 01/05/2015 Office visit Rupali Carter SECURITY SALES MANAGER 10/12/2014 Office visit 10/12/2014 Office visit Rupali Crater SECURITY SALES MANAGER 07/08/2014 [facility] Xander Knox MD 06/25/2014 Office visit 06/25/2014 Office visit Xander Knox MD 05/29/2014 Office visit Rupali Carter SECURITY SALES MANAGER 02/02/2014 Office visit Dionisio Payton DO 11/14/2013 Office visit Rupali Carter SECURITY SALES MANAGER 04/24/2011 Office visit BRENT PEÑA SECURITY SALES MANAGER 11/08/2010 Office visit Brent Peña SECURITY SALES MANAGER 06/27/2010 Office visit Brent Peña SECURITY SALES MANAGER 08/03/2009 Office visit Brent Peña SECURITY SALES MANAGER
--- OUTSIDE RECORDS SUMMARY | 2018-04-15 08:21 | XMS REPORT ---
Author Author Sirisha Alexander [facility] Address [address] [place], [place] [phone] Care Team Providers Care Medical Associate Name Role Phone Sirisha Alexander PCP Unavailable [...] Value 0.0382 ug/mLAFP MoM 1.17 hCG Value 55917.0 mIU/ mLhCG MoM 0.89 uE3 Value 1.430 ng/mLuE3 MoM 1.62 KITTY Value 122.770 pg/mLDIA MoM 0.72 OSBR Risk 1 IN 7137 DSR (Second Trimester) 1IN [address]6715 DSR (By Age) 1 IN 1167 T18 [...] Policy Number Policy Group Number Start Date [facility] [id number] N/A [facility] [id number] N/A BCBS Bcbs [facility] [id number] Thursday, 2009 BCBS [employer] [place] [id number] Thursday, 2009 History of Encounters Visit Date [...] Alexander MD 01/05/2015 Office visit Rupali Carter GAS STATION SERVICE ATTENDANT 10/12/2014 Office visit 10/12/2014 Office visit Rupali Catrer GAS STATION SERVICE ATTENDANT 07/08/2014 [facility] Xander Knox MD 06/25/2014 Office visit 06/25/2014 Office visit Xander Knox MD 05/29/2014 Office visit Rupali Carter GAS STATION SERVICE ATTENDANT 02/02/2014 Office visit Dionisio Payton DO 11/14/2013 Office visit Rupali Carter GAS STATION SERVICE ATTENDANT 04/24/2011 Office visit BRENT PEÑA GAS STATION SERVICE ATTENDANT 11/08/2010 Office visit Brent Peña GAS STATION SERVICE ATTENDANT 06/27/2010 Office visit Brent Peña GAS STATION SERVICE ATTENDANT 08/03/2009 Office visit Brent Peña GAS STATION SERVICE ATTENDANT
--- OUTSIDE RECORDS SUMMARY | 2018-04-15 08:21 | XMS REPORT ---
Author Author Sirisha Alexander [facility] Address [address] [place], [place] [address] Care Team Providers Care Partnership Marketing Manager Name Role Phone Sirisha Alexander PCP Unavailable [...] Value 0.0382 ug/mLAFP MoM 1.17 hCG Value 98250.0 mIU/ mLhCG MoM 0.89 uE3 Value 1.430 ng/mLuE3 MoM 1.62 KITTY Value 122.770 pg/mLDIA MoM 0.72 OSBR Risk 1 IN 7137 DSR (Second Trimester) 1IN [address]3264 DSR (By Age) 1 IN 1167 T18 [...] Policy Number Policy Group Number Start Date [facility] [id number] N/A [facility] [id number] N/A BCBS [employer] [place] [id number] Thursday, 2009 BCBS [employer] [place] [id number] Thursday, 2009 History of Encounters Visit Date Visit Type Provider 05/13/[address] Sirisha Alexander MD 04/15/[address] Sirisha Alexander MD 03/18/[address] Sirisha Alexander MD 02/18/[address] Sirisha Alexander MD 01/21/[address] Sirisha Alexander MD 01/05/2015 Office visit Rupali Carter FRIT MAKER 10/12/2014 Office visit 10/12/2014 Office visit Rupali Carter FRIT MAKER 07/08/2014 [facility] Xander Knox MD 06/25/2014 Office visit 06/25/2014 Office visit Xander Knox MD 05/29/2014 Office visit Rupali Carter FRIT MAKER 02/02/2014 Office visit Dionisio Payton DO 11/14/2013 Office visit Rupali Carter FRIT MAKER 04/24/2011 Office visit BRENT PEÑA FRIT MAKER 11/08/2010 Office visit Brent Peña FRIT MAKER 06/27/2010 Office visit Brent Peña FRIT MAKER 08/03/2009 Office visit Brent Peña FRIT MAKER
--- OUTSIDE RECORDS SUMMARY | 2018-04-15 08:22 | XMS REPORT ---
Author Author Rupali Trotter [facility] Address [address] [place], [place] [phone] Care Team Providers Care Classification Clerk Name Role Phone Rupali Trotter PCP TataDionisio PreferredProvider Allergies and Adverse Reactions Name Reaction [...] HC BMI BSA BMI Percentile O2 Sat(%) 01/30/2017 6:37:00 PM 112 mmHg 70 mmHg 75 bpm 16 rpm 98.5 F 187 lbs 62 in 34.20 kg/m2 1.93 m2 99 % 01/03/2017 6:28:00 PM 112 mmHg 68 mmHg 77 bpm 18 rpm 99.2 F 170 lbs 62 in 31.0931 kg/m 1.8366 m 98 % 08/09/2016 1:38:00 PM 125 mmHg [...] Reviewed 02/02/2016 12:00 AM [place] 3 yr [facility] [place]# [id number] Reviewed 01/03/2017 7:06 PM URINALYSIS AUTO W/O [...] Value 0.0382 ug/mLAFP MoM 1.17 hCG Value 55764.0 mIU/mLhCG MoM 0.89 uE3 Value 1.430 ng/mLuE3 MoM 1.62 KITTY Value 122.770 pg/mLDIA MoM 0.72 OSBR Risk 1 IN 7137 DSR (Second Trimester) 1IN 05073 DSR (By Age) 1 IN 1167 T18 [...] NEGATIVE History Of Immunizations Name Date Admin [facility] Name [facility] Code Trade Name Lot# Route Inj Vis Given Vis Pub CVX Tdap 07/22/2015 [employer] SKB BOOSTRIX [id number] Intramuscular Right Deltoid 07/22/2015 [...] 2017 6:31PM Gastroenteritis Jan 30 2017 6:39PM Payers Insurance Name Company Name Plan Name Plan Number Policy Number Policy Group Number Start Date [facility] [id number] N/A [facility] [id number] N/A BCBS [employer] [place] [id number] Thursday, 2009 BCBS Bcbs [facility] [id number] Thursday, 2009 History of Encounters Visit Date Visit Type Provider 01/30/2017 Office visit Rupali Trotter INSIDE TRUCKER 01/03/2017 Office visit Rupali Trotter INSIDE TRUCKER 08/09/2016 Office visit Jade Muse INSIDE TRUCKER 05/23/2016 Office visit Dionisio Payton DO 02/02/2016 Office visit Rupali Carter INSIDE TRUCKER 10/07/[address] Sirisha Alexander MD [...] Alexander MD 01/05/2015 Office visit Rupali Carter INSIDE TRUCKER 10/12/2014 Office visit 10/12/2014 Office visit Rupali Carter INSIDE TRUCKER 07/08/2014 Hospital Xander Knox MD 06/25/2014 Office visit 06/25/2014 Office visit Xander Knox MD 05/29/2014 Office visit Rupali Carter INSIDE TRUCKER 02/02/2014 Office visit Dionisio Payton DO 11/14/2013 Office visit Rupali Carter INSIDE TRUCKER 04/24/2011 Office visit BRENT PEÑA INSIDE TRUCKER 11/08/2010 Office visit Brent Peña INSIDE TRUCKER 06/27/2010 Office visit Brent Peña INSIDE TRUCKER 08/03/2009 Office visit Brent Peña INSIDE TRUCKER
--- OUTSIDE RECORDS SUMMARY | 2018-04-15 08:24 | XMS REPORT | Continuity of Care Document ---
Author Author [facility] Organization [facility] Address Unknown Phone Unavailable Allergies There is no data. Medications There is no data. Problems There is no data. Procedures There is no data. Results There is no data. Encounters ACCT No. Visit Date/Time Discharge Status Pt. Type Provider Facility Loc./Unit Complaint [id number] 03/20/2017 15:14:45 03/20/2017 23:59:59 CLS Outpatient Rupali Carter [id number] 01/30/2017 18:33:02 01/30/2017 23:59:59 CLS Outpatient Rupali Trotter [id number] 01/03/2017 19:14:48 01/03/2017 23:59:59 CLS Outpatient Rupali Trotter [id number] 08/09/2016 14:35:07 08/09/2016 23:59:59 CLS Outpatient Jade Muse [id number] 05/23/2016 14:39:23 05/23/2016 23:59:59 CLS Outpatient Tata Dionisio [id number] 02/02/2016 15:40:24 02/02/2016 23:59:59 CLS Outpatient Rupali Carter [id number] 10/08/2015 12:05:43 10/08/2015 23:59:59 CLS Outpatient Sirisha Alexander [id number] 10/07/2015 12:19:11 10/07/2015 23:59:59 CLS Outpatient Sirisha Alexander [id number] 05/13/2015 15:14:04 05/13/2015 23:59:59 CLS Outpatient Sirisha Alexander [id number] 04/15/2015 15:11:25 04/15/2015 23:59:59 CLS Outpatient Sirisha Alexander [id number] 03/18/2015 15:35:54 03/18/2015 23:59:59 CLS Outpatient Sirisha Alexander [id number] 02/18/2015 15:26:00 02/18/2015 23:59:59 CLS Outpatient Sirisha Alexander [id number] 01/21/2015 15:57:27 01/21/2015 23:59:59 CLS Outpatient Sirisha Alexander [id number] 01/05/2015 11:10:17 01/05/2015 23:59:59 CLS Outpatient Rupali Carter [id number] 10/19/2014 22:31:22 10/19/2014 23:59:59 CLS Outpatient Rupali Carter [id number] 07/14/2014 12:11:52 07/14/2014 23:59:59 CLS Outpatient Xander Knox [id number] 06/25/2014 10:57:26 06/25/2014 23:59:59 CLS Outpatient Xander Knox [id number] 06/01/2014 16:54:13 06/01/2014 23:59:59 CLS Outpatient Rupali Carter [id number] 02/02/2014 08:55:40 02/02/2014 23:59:59 CLS Outpatient Dionisio Payton [id number] 11/14/2013 10:33:31 11/14/2013 23:59:59 CLS Outpatient Rupali Carter
--- OUTSIDE RECORDS SUMMARY | 2018-04-15 08:24 | XMS REPORT ---
Author Author Sirisha Alexander [facility] Address [address] [place], [place] [phone] Care Team Providers Care Mail Processing Clerk Name Role Phone Sirisha Alexander PCP [...] Number Policy Group Number [facility] [id number] Thursday, 2009 [facility] [id number] Thursday, 2009 [facility] [id number] N/A [facility] [id number] N/A History of Encounters Visit Date Visit Type Provider 01/21/[address] Sirisha Alexander MD 01/05/2015 Office visit Rupali Carter RAIL OPERATOR 10/12/2014 Office visit Rupali Carter RAIL OPERATOR 07/08/2014 [facility] Xander Knox MD 06/25/2014 Office visit Xander Knox MD 05/29/2014 Office visit Rupali Carter RAIL OPERATOR 02/02/2014 Office visit Dionisio Payton DO 11/14/2013 Office visit Rupali Carter RAIL OPERATOR 04/24/2011 Office visit BRENT PEÑA RAIL OPERATOR 11/08/2010 Office visit Brent Peña RAIL OPERATOR 06/27/2010 Office visit Brent Peña RAIL OPERATOR 08/03/2009 Office visit Brent Peña RAIL OPERATOR
--- NOTE | 2018-04-15 08:27 | NUR ---
Dr Hadley notified of pt admission. Orders received.
[2018-04-15] MEDS ORDERED: NS IV 1000 ML 1,000 ML ONE (08:43)
[2018-04-15] MEDS ORDERED: MINERAL OIL CONCENTRATE 99.9% 15 ML UDC TOP PRN (08:45)
[2018-04-15 08:48] LABS: CLARITY,URINE SLIGHTLY CLOUDY; COLOR,URINE YELLOW; GLUCOSE, URINE (UA) NEGATIVE (NEGATIVE); KETONES,URINE 1+ (NEGATIVE); LEUKOCYTE ESTERASE ,URINE 3+ (NEGATIVE); NITRITE,URINE NEGATIVE (NEGATIVE); PH,URINE 5 (5-9); PROTEIN,URINE 2+ (NEGATIVE); UROBILINOGEN,URINE 4 MG/DL (NORMAL)
[2018-04-15 08:49] LABS: BASOPHILS % (AUTO) 0 % (0-10); EOSINOPHILS # (AUTO) 0.2 10^3/uL (0.0-0.3); EOSINOPHILS % (AUTO) 2 % (0-10); HEMATOCRIT 32 % (35-52); HEMOGLOBIN 10.8 G/DL (11.5-16.0); LYMPHOCYTES # (AUTO) 3.1 X 10^3 (1.0-4.0); LYMPHOCYTES % (AUTO) 29 % (12-44); MEAN CORPUSCULAR HEMOGLOBIN 27 PG (25-34); MEAN CORPUSCULAR HGB CONC 33 G/DL (32-36); MEAN CORPUSCULAR VOLUME 81 FL (80-99); MEAN PLATELET VOLUME 9.6 FL (7.4-10.4); MONOCYTES # (AUTO) 0.8 X 10^3 (0.0-1.0); MONOCYTES % (AUTO) 7 % (0-12); NEUTROPHILS # (AUTO) 6.6 X 10^3 (1.8-7.8); NEUTROPHILS % (AUTO) 62 % (42-75); PLATELET COUNT 415 10^3/uL (130-400); RED CELL DISTRIBUTION WIDTH 14.2 % (10.0-14.5); WHITE BLOOD COUNT 10.7 10^3/uL (4.3-11.0)
[2018-04-15] MEDS: NS IV 1000 ML 1,000 ML IV SCH ×2 (08:50→16:03)
[2018-04-15 09:14] LABS: BACTERIA,URINE TRACE /HPF; CALCIUM OXALATE CRYSTALS,UR MODERATE /LPF
[2018-04-15 09:15] LABS: BILIRUBIN,URINE 1+ (NEGATIVE)
[2018-04-15] MEDS ORDERED: PREN-53 PO (10:36)
[2018-04-15] MEDS ORDERED: OXYTOCIN/NORMAL SALINE 500 ML IV SCH ×2 (10:43→18:51)
--- NOTE | 2018-04-15 11:10 | NUR ---
Anesthesia notified of request for labor epidural.
[2018-04-15] MEDS ORDERED: SUFENTA 0.6MCG/ML BUPIVA 0.125 100 ML ONE (11:11)
[2018-04-15] MEDS ORDERED: fentaNYL INJECTION 100 MCG/2 ML AMP ONE (12:43)
[2018-04-15] MEDS ORDERED: LACTATED RINGERS 1,000 ML IV ONE ×2 (13:27→13:45)
[2018-04-15] MEDS ORDERED: NALOXONE 0.4 MG/ML 1 ML (NARCAN) VIAL IV PRN ×3 (13:30→13:45)
[2018-04-15] MEDS ORDERED: EPIDURAL (SUFENTA 0.6MCG/ML BUPIVA 0.125%) 100 ML BAG EPI SCH (13:30)
[2018-04-15] MEDS ORDERED: CATHETER FLUSH 10 ML SYR IV PRN (13:30)
[2018-04-15] MEDS ORDERED: ONDANSETRON 4 MG/2 ML (SDV) Z0FRAN IV PRN ×2 (13:30→13:45)
[2018-04-15] MEDS ORDERED: diphenhydrAMINE 50 MG/ML INJ (BENADRYL) IV PRN (13:45)
[2018-04-15] MEDS ORDERED: METOCLOPRAMIDE INJ 10 MG/2 ML (REGLAN) IV PRN (13:45)
[2018-04-15] MEDS ORDERED: EPIDURAL (SUFENTA 0.6MCG/ML BUPIVA 0.125%) 100 ML BAG EPI PRN (13:45)
[2018-04-15 13:53] LABS: BILIRUBIN,URINE NEGATIVE (NEGATIVE); CLARITY,URINE CLEAR; COLOR,URINE YELLOW; GLUCOSE, URINE (UA) NEGATIVE (NEGATIVE); KETONES,URINE 3+ (NEGATIVE); LEUKOCYTE ESTERASE ,URINE 1+ (NEGATIVE); NITRITE,URINE NEGATIVE (NEGATIVE); PH,URINE 6 (5-9); PROTEIN,URINE NEGATIVE (NEGATIVE); UROBILINOGEN,URINE 1 MG/DL (NORMAL)
[2018-04-15] MEDS ORDERED: CATHETER FLUSH 10 ML SYR IV SCH ×2 (14:00→22:00)
[2018-04-15 14:10] LABS: BACTERIA,URINE TRACE /HPF
--- NOTE | 2018-04-15 16:25 | NUR ---
Dr Hadley called to inquire about pt status. Update given.
[2018-04-15] MEDS ORDERED: LIDOCAINE/EPI 2% 1:200,00 (XYLOCAINE) 10 ML VIAL ONE (17:38)
[2018-04-15] MEDS ORDERED: MISOPROSTOL 200 MCG (CYTOTEC) TABLET ONE (18:30)
[2018-04-15] MEDS ORDERED: TETANUS,DIPTH,PERTUSS P/F (BOOSTRIX) 0.5 ML VIAL IM ONE (19:00)
[2018-04-15] MEDS ORDERED: MEASLES,MUMPS,RUBELLA 1 EA INJ SQ ONE (19:00)
[2018-04-15] MEDS ORDERED: BENZOCAINE/MENTHOL (DERMOPLAST) 56 ML CAN TP PRN (19:00)
[2018-04-15] MEDS ORDERED: WITCH HAZEL(TUCKS) 40 EA JAR TOP PRN (19:00)
[2018-04-15] MEDS ORDERED: DIBUCAINE (NUPERCAINAL) 1% OINT 30 GM TOP PRN (19:00)
--- NOTE | 2018-04-15 19:01 | OB Labor & Delivery Record ---
Vag Delivery Note Vag Delivery Note Date of Delivery: 04/15/18 Preoperative Diagnosis: Lauri Fleming is a 22 /Para 4 /1 , Gestational Age (39 2/7 weeks, gestational diabetes, A1, presenting for induction of labor Postoperative Diagnosis: Same Surgeon: KIM OLIVEIRA Materials Buyer: Yue Montoya, MS III Anesthesia epidural Delivery Type: vaginal Findings: Viable male , apgars 8/9, weight pending Lacerations: none Intact placenta with 3 vessel cord. No nuchal cord, body cord or shoulder dystocia Estimated Blood Loss: 200 ml Complications: None Condition: Stable Description of Procedure: The patient is a 22 /Para 4 /1 ,Gestational Age 39 2/7 weeks, gestational diabetes, A1, presenting for induction of labor. She was admitted and informed consent was obtained. Her labor course was remarkable for AROM and epidural She progressed to complete dilatation and began to push. She was then set up for delivery. The infant's head was delivered atraumatically in the OA position. The shoulders and remainder of the infant's body were then delivered without difficulty. Upon delivery, the head was held below the level of the perineum and the mouth and nares were bulb suctioned. The cord was doubly clamped and cut and the infant was handed off to the pediatric staff. An intact placenta with 3-vessel cord delivered via Mai and there was found to be minimal bleeding.~ Vigorous fundal massage was performed and the fundus was found to be firm. IV oxytocin was given. Examination of the vagina and perineum revealed no laceration. Following the delivery, sponge, instrument and needle counts were correct. Mom and baby were both in stable condition in the labor suite. Vitals - Labs Vital Signs - I&O Vital Signs Date Time Temp Pulse Resp B/P (MAP) Pulse Ox O2 Delivery O2 Flow Rate FiO2 04/15/18 15:15 78 16 90/53 (65) 98 Room Air 04/15/18 15:00 74 16 99/55 (70) 98 Room Air 04/15/18 14:45 75 16 95/52 (66) Room Air 04/15/18 14:30 78 16 100/65 (77) 98 Room Air 04/15/18 14:15 69 16 93/54 (67) 97 Room Air 04/15/18 14:00 98.7 76 16 98/53 (68) 97 Room Air 04/15/18 13:45 68 16 110/63 (79) 96 Room Air 04/15/18 13:32 81 18 102/56 (71) 97 Room Air 04/15/18 13:28 73 18 102/57 (72) 98 Room Air 04/15/18 13:22 95 18 107/62 (77) 98 Room Air 04/15/18 13:18 84 18 112/59 (76) 98 Room Air 04/15/18 13:13 67 18 112/59 (76) 98 Room Air 04/15/18 13:07 71 18 110/59 (76) 98 Room Air 04/15/18 13:04 86 18 101/56 (71) 98 Room Air 04/15/18 13:01 77 18 101/56 (71) 98 Room Air 04/15/18 12:58 71 18 110/57 (74) 99 Room Air 04/15/18 12:55 88 18 94/54 (67) 99 Room Air 04/15/18 12:52 83 18 107/62 (77) 98 Room Air 04/15/18 12:50 82 18 107/58 (74) 98 Room Air 04/15/18 12:47 76 18 112/59 (76) 99 Room Air 04/15/18 12:40 78 18 114/64 (81) 98 Room Air 04/15/18 12:30 72 18 109/72 (84) 99 Room Air 04/15/18 11:40 98.1 76 18 111/64 (80) 98 Room Air 04/15/18 10:50 98.4 76 18 109/78 (88) 99 Room Air 04/15/18 07:58 97.8 110 18 121/70 (87) 97 Room Air Labs Laboratory Tests 04/15/18 07:50: Urine Color YELLOW, Urine Clarity SLIGHTLY CLOUDY, Urine pH 5, Urine Specific [place] 1.025H, Urine Protein 2+H, Urine Glucose (UA) NEGATIVE, Urine Ketones 1+ H, Urine Nitrite NEGATIVE, Urine Bilirubin 1+H, Urine Urobilinogen 4H, Urine Leukocyte Esterase 3+H, Urine RBC (Auto) 1+H, Urine RBC NONE, Urine WBC 10-25H, Urine Squamous Epithelial Cells 10-25H, Urine Crystals PRESENTH, Urine Calcium Oxalate Crystals MODERATEH, Urine Bacteria TRACE, Urine Casts NONE, Urine Mucus SMALLH, Urine Culture Indicated YES 04/15/18 08:16: White Blood Count 10.7, Red Blood Count 4.01L, Hemoglobin 10.8L, Hematocrit 32L , Mean Corpuscular Volume 81, Mean Corpuscular Hemoglobin 27, Mean Corpuscular Hemoglobin Concent 33, Red Cell Distribution Width 14.2, Platelet Count 415H, Mean Platelet Volume 9.6, Neutrophils (%) (Auto) 62, Lymphocytes (%) (Auto) 29, Monocytes (%) (Auto) 7, Eosinophils (%) (Auto) 2, Basophils (%) (Auto) 0, Neutrophils # (Auto) 6.6, Lymphocytes # (Auto) 3.1, Monocytes # (Auto) 0.8, Eosinophils # (Auto) 0.2, Basophils # (Auto) 0.0, Glucose Level 88 04/15/18 13:08: Glucometer 80 04/15/18 13:15: Urine Color YELLOW, Urine Clarity CLEAR, Urine pH 6, Urine Specific [place] 1.015L, Urine Protein NEGATIVE, Urine Glucose (UA) NEGATIVE, Urine Ketones 3+H, Urine Nitrite NEGATIVE, Urine Bilirubin NEGATIVE, Urine Urobilinogen 1, Urine Leukocyte Esterase 1+H, Urine RBC (Auto) NEGATIVE, Urine RBC NONE, Urine WBC 2-5 , Urine Squamous Epithelial Cells 2-5, Urine Crystals NONE, Urine Bacteria TRACE , Urine Casts NONE, Urine Mucus MODERATEH, Urine Culture Indicated YES KIM OLIVEIRA DO Apr 15, 2018 19:01
--- NOTE | 2018-04-15 19:47 | NUR ---
FF u/0. Moderate rubra. Pt . Latched to R Side.
--- NOTE | 2018-04-15 21:10 | NUR ---
Pericare done. FF u/0. Moderate rubra. v pad on, panties on. R leg remains numb. Unable to transfer at this time.
--- NOTE | 2018-04-15 22:40 | NUR ---
pt able to lift both legs. Ambulated to br. Denies dizziness or lightheadedness. Legs stable. Pt able to void. roddy care done independently with standby assist. V pad and panties changed. Gown changed. Pt ambulated to . Pt transferred to room 310 per wc. Tolerated well. Oriented to room. pt in bed resting. Water refilled, pain meds given. Will monitor.
[2018-04-15] MEDS: IBUPROFEN 600 MG (MOTRIN) TAB PO SCH (22:48)
[2018-04-16 01:40] VITALS: BP 97/54
[2018-04-16] MEDS: IBUPROFEN 600 MG (MOTRIN) TAB PO SCH ×3 (05:44→20:39)
[2018-04-16 05:45] VITALS: BP 114/61
[2018-04-16 07:05] LABS: BASOPHILS % (AUTO) 0 % (0-10); EOSINOPHILS # (AUTO) 0.1 10^3/uL (0.0-0.3); EOSINOPHILS % (AUTO) 1 % (0-10); HEMATOCRIT 32 % (35-52); HEMOGLOBIN 10.5 G/DL (11.5-16.0); LYMPHOCYTES # (AUTO) 3.1 X 10^3 (1.0-4.0); LYMPHOCYTES % (AUTO) 25 % (12-44); MEAN CORPUSCULAR HEMOGLOBIN 27 PG (25-34); MEAN CORPUSCULAR HGB CONC 33 G/DL (32-36); MEAN CORPUSCULAR VOLUME 81 FL (80-99); MEAN PLATELET VOLUME 9.3 FL (7.4-10.4); MONOCYTES # (AUTO) 0.8 X 10^3 (0.0-1.0); MONOCYTES % (AUTO) 6 % (0-12); NEUTROPHILS # (AUTO) 8.5 X 10^3 (1.8-7.8); NEUTROPHILS % (AUTO) 68 % (42-75); PLATELET COUNT 336 10^3/uL (130-400); RED CELL DISTRIBUTION WIDTH 14.5 % (10.0-14.5); WHITE BLOOD COUNT 12.5 10^3/uL (4.3-11.0)
[2018-04-16 08:00] VITALS: BP 110/58
[2018-04-16] MEDS: FERROUS SULF 325 MG (IRON) TAB PO SCH (08:30)
[2018-04-16] MEDS: PRENATAL VITAMIN 1 EA TAB PO SCH (08:30)
[2018-04-16] MEDS: DOCUSATE SODIUM 100 MG (COLACE) CAP PO SCH ×2 (08:30→20:38)
--- NOTE | 2018-04-16 10:30 | NUR ---
Report received from JOHNY Villa. care assumed of pt.
[2018-04-16 14:32] VITALS: BP 94/51
[2018-04-16] MEDS: ACETAMINOPHEN 500 MG TAB (TYLENOL) PO SCH (15:39)
--- NOTE | 2018-04-16 16:59 | Anesthesia-Regional Post-Op ---
Regional Patient Condition Mental Status: Alert, Oriented x3 Circulation: Same as Pre-Op Headache: Absent Sensation: Full Recovery Motor Block: Absent Post Op Complications Complications None Follow Up Care/Instructions Patient Instructions None needed. Anesthesia/Patient Condition Patient is doing well, no complaints, stable vital signs, no apparent adverse anesthesia problems. GILSON HOWE DO Apr 16, 2018 16:59
--- NOTE | 2018-04-16 19:15 | NUR ---
report given to next shift.
[2018-04-16 20:39] VITALS: BP 117/71
[2018-04-17] MEDS: ACETAMINOPHEN 500 MG TAB (TYLENOL) PO SCH ×2 (00:50→09:04)
[2018-04-17 03:29] VITALS: BP 120/73
[2018-04-17] MEDS: IBUPROFEN 600 MG (MOTRIN) TAB PO SCH ×3 (03:29→15:36)
[2018-04-17] MEDS ORDERED: DOCU100C37 PO (08:51)
[2018-04-17] MEDS ORDERED: ACET-77 PO (08:51)
[2018-04-17] MEDS ORDERED: IBUP-844 PO (08:51)
--- NOTE | 2018-04-17 08:52 | Discharge Inst-Women's Service ---
Discharge Inst-Women's Serv Depart Medication/Instructions New, Converted or Re-Newed RX: RX on Chart Final Diagnosis gestational diabetes vaginal delivery Consults/Follow Up Additional Follow Up: Yes ([address] Oliveira. Needs 2 hour glucola) Activity Activity: Activity as Tolerated Driving Instructions: You May Drive NO SMOKING: NO SMOKING Nothing Inside Vagina: No Douching, No [place], No Tampons Diet Discharge Diet: No Restrictions Symptoms to Report to : Bleeding Excessive, Pain Increased, Fever Over 101 Degrees F, Vaginal Bleeding Increase, Cramps in Feet or Legs, Vaginal Discharge Foul For Any Problems or Questions: Contact Your Physician KIM OLIVIERA DO Apr 17, 2018 08:52
[2018-04-17] MEDS: PRENATAL VITAMIN 1 EA TAB PO SCH (09:05)
[2018-04-17] MEDS: DOCUSATE SODIUM 100 MG (COLACE) CAP PO SCH (09:05)
[2018-04-17] MEDS: FERROUS SULF 325 MG (IRON) TAB PO SCH (09:05)
[2018-04-17 09:10] VITALS: BP 113/70
--- NOTE | 2018-04-17 09:10 | NUR ---
initial shift assessment completed, see interventions for further.
--- NOTE | 2018-04-17 11:04 | NUR ---
dismissal instructions given, verbalizes understanding. reviewed dismissal medications and follow up appointment. signature page signed, placed on chart.
[2018-04-17 15:36] VITALS: BP 128/69
--- NOTE | 2018-04-17 15:36 | NUR ---
scheduled motrin given, see eMar for further. rooming in information given to mother. mother dismissed to boarder status until infant dismissed from hospital.
== END 2018-04-17 15:36 | disposition home or self-care (01) | DRG 807 ==
LOC: LDRP 07:46
PROVIDERS: ADMIT Obstetrics & Gynecology; ATTEND Obstetrics & Gynecology
PROC: 10E0XZZ Delivery of Products of Conception, External Approach (ICD-10-PCS; principal; 2018-04-15)
PROC: 3E033VJ Introduction of Other Hormone into Peripheral Vein, Percutaneous Approach (ICD-10-PCS; 2018-04-15)
DX: O24.420 Gestational diabetes mellitus in childbirth, diet controlled (principal); Z3A.39 39 weeks gestation of pregnancy; Z37.0 Single live birth; Z87.891 Personal history of nicotine dependence
CPT/HCPCS: 36415; 81000; 82947; 82962; 85025; 86850; 86900; 86901; 87088

== ENCOUNTER → 2019-09-24 | Outpatient (CLI) | payer MEDICAID ==
[~2019-09-24] MED LIST: ACET-78 PO; DOCU100C37 PO; IBUP-844 PO; PREN-53 PO
--- NOTE | 2019-09-24 15:24 | Diagnostic Imaging Report ---
PROCEDURE: US Non-ob pelvis comp/trans. TECHNIQUE: Multiple real-time grayscale images were obtained of the pelvis in various projections endovaginally. Transabdominal imaging was also performed. INDICATION: Lost IUD strings. FINDINGS: The uterus is retroverted measuring 6.2 x 3.7 x 4.4 cm. IUD appears to be appropriately centered in the endometrial canal. Endometrium is 3 mm in thickness. No myometrial mass is identified. The left ovary is not visualized. There is a mass in the right adnexa measuring 8.4 x 6.9 x 8.0 cm, inseparable from the right ovary. This is mixed echogenicity. There may be some calcifications within the lesion and the possibility of a dermoid cannot be excluded. No free fluid is seen. IMPRESSION: 1. IUD is appropriately centered in the endometrial canal. 2. A large right adnexal mass. There appear to be calcifications and ovarian dermoid cannot be excluded. CT may be useful for further characterization. Dictated by: Dictated on workstation # [id number]
== END ==
LOC: RAD 12:30
PROVIDERS: ATTEND Obstetrics & Gynecology
DX: T83.32XA Displacement of intrauterine contraceptive device, initial encounter (principal); N91.2 Amenorrhea, unspecified; N83.8 Other noninflammatory disorders of ovary, fallopian tube and broad ligament
CPT/HCPCS: 76830; 76856

== ENCOUNTER 2019-10-02 12:45 | Outpatient (RCR) | payer MEDICAID ==
[~2019-10-02] VITALS: Ht 157 cm; Wt 93.6 kg
[2019-10-03] MEDS ORDERED: IBUP-844 PO (13:54)
[2019-10-03] MEDS ORDERED: OXC5T PO (13:54)
[2019-10-03] MEDS ORDERED: ACET-93 PO (13:54)
[2019-10-03] MEDS ORDERED: ONDA4TAB11 PO (14:16)
== END 2019-12-31 | disposition home or self-care (01) ==
LOC: PREOP 12:45
PROVIDERS: ATTEND Obstetrics & Gynecology
DX: Z01.818 Encounter for other preprocedural examination (principal); R10.2 Pelvic and perineal pain

== ENCOUNTER 2019-10-03 09:32 | Day surgery (SDC) | payer MEDICAID ==
[~2019-10-03] VITALS: Ht 157.5 cm; Wt 93.6 kg
[2019-10-03] VITALS (12 sets, daily range): BP systolic 98–136; BP diastolic 68–94
[2019-10-03] MEDS ORDERED: ceFAZolin INJECTION 1,000 MG in WATER (STERILE) FOR INJECTION 10 ML IV ONE (10:00)
[2019-10-03 10:16] LABS: BASOPHILS % (AUTO) 0 % (0-10); EOSINOPHILS # (AUTO) 0.1 10^3/uL (0.0-0.3); EOSINOPHILS % (AUTO) 2 % (0-10); HEMATOCRIT 39 % (35-52); HEMOGLOBIN 13.1 G/DL (11.5-16.0); LYMPHOCYTES # (AUTO) 2.4 X 10^3 (1.0-4.0); LYMPHOCYTES % (AUTO) 36 % (12-44); MEAN CORPUSCULAR HEMOGLOBIN 29 PG (25-34); MEAN CORPUSCULAR HGB CONC 34 G/DL (32-36); MEAN CORPUSCULAR VOLUME 86 FL (80-99); MEAN PLATELET VOLUME 9.9 FL (7.4-10.4); MONOCYTES # (AUTO) 0.5 X 10^3 (0.0-1.0); MONOCYTES % (AUTO) 7 % (0-12); NEUTROPHILS # (AUTO) 3.7 X 10^3 (1.8-7.8); NEUTROPHILS % (AUTO) 55 % (42-75); PLATELET COUNT 317 10^3/uL (130-400); RED CELL DISTRIBUTION WIDTH 13.4 % (10.0-14.5); WHITE BLOOD COUNT 6.8 10^3/uL (4.3-11.0)
[2019-10-03] MEDS ORDERED: LACTATED RINGERS 1,000 ML IV PRN (11:07)
[2019-10-03] MEDS ORDERED: proPOfol 200 MG/20 ML (DIPRIVAN) VIAL IV ONE (11:11)
[2019-10-03] MEDS ORDERED: GLYCOPYRROLATE 0.2 MG/ML (ROBINUL) 2 ML VIAL ONE (11:11)
[2019-10-03] MEDS ORDERED: ONDANSETRON 4 MG/2 ML (SDV) Z0FRAN ONE (11:11)
[2019-10-03] MEDS ORDERED: ROCURONIUM 10 MG/ML 5 ML SYRINGE IV ONE ×2 (11:11→13:31)
[2019-10-03] MEDS ORDERED: LIDOCAINE PF 2% 5 ML (XYLOCAINE) VIAL ONE (11:11)
[2019-10-03] MEDS ORDERED: SEVOFLURANE (ULTANE) 15 ML INHAL SOLN ONE (11:11)
[2019-10-03] MEDS ORDERED: NEOSTIGMINE 3 MG/3 ML VIAL ONE (11:11)
[2019-10-03] MEDS ORDERED: fentaNYL INJECTION 100 MCG/2 ML AMP ONE ×2 (11:11→13:37)
[2019-10-03] MEDS ORDERED: MIDAZOLAM 2 MG/2 ML (VERSED) VIAL ONE (11:12)
--- OUTSIDE RECORDS SUMMARY | 2019-10-03 11:13 | XMS REPORT | Continuity of Care Document ---
Author Organization Unknown Address Unknown Phone Unavailable Allergies Active Description Code Type Severity Reaction Onset Reported/Identified Relationship to Patient Clinical Status Yes No Known Drug Allergies [id number] Drug Allergy Unknown N/A 04/15/2018 Medications There is no data. Problems Date Dx Coded Attending Type Code Diagnosis Diagnosed By 02/22/2018 TEE DO KIM C Ot Z36.8 9 ENCOUNTER FOR OTHER SPECIFIED 02/22/2018 OLIVEIRA DO KIM C Ot Z3A.3 3 33 WEEKS GESTATION OF 03/09/2018 TEE DO KIM C Ot Z36.8 9 ENCOUNTER FOR OTHER SPECIFIED 03/09/2018 TEE DO KIM C Ot Z3A.3 3 33 WEEKS GESTATION OF 04/02/2018 TEE DO KIM C Ot O24.4 10 GESTATIONAL DIABETES MELLITUS IN PREGNAN 04/02/2018 TEE DO KIM C Ot Z3A.3 5 35 WEEKS GESTATION OF 04/10/2018 TEE RICK KIM C Ot M54.5 LOW BACK PAIN 04/10/2018 TEE RICK KIM C Ot O24.4 10 GESTATIONAL DIABETES MELLITUS IN PREGNAN 04/10/2018 TEE DO KIM C Ot O26.8 93 OTH RELATED CONDITIONS, THIRD 04/10/2018 TEE DO KIM C Ot O41.03X0 OLIGOHYDRAMNIOS, THIRD TRIMESTER, NOT AP 04/10/2018 TEE DO KIM C Ot Z3A.3 9 39 WEEKS GESTATION OF 04/15/2018 TEE DO KIM C Ot O24.4 10 GESTATIONAL DIABETES MELLITUS IN PREGNAN 04/15/2018 OLIVEIRA DO IKM C Ot Z3A.3 8 38 WEEKS GESTATION OF 04/17/2018 TEE DO KIM C Ot O24.4 10 GESTATIONAL DIABETES MELLITUS IN PREGNAN 04/17/2018 OLIVEIRA DO KIM C Ot Z3A.3 5 35 WEEKS GESTATION OF 04/17/2018 TEE DO KIM C Ot O24.4 20 GESTATIONAL DIABETES MELLITUS IN CHILDBI 04/17/2018 OLIVEIRA DO, KIM C Ot Z37.0 SINGLE LIVE 04/17/2018 OLIVEIRA DO, KIM C Ot Z3A.3 8 38 WEEKS GESTATION OF 04/17/2018 OLIVEIRA DO, KIM C Ot Z3A.3 9 39 WEEKS GESTATION OF 04/17/2018 OLIVEIRA DO, KIM C Ot Z87.8 91 PERSONAL HISTORY OF NICOTINE DEPENDENCE 04/25/2018 OLIVEIRA DO, KIM C Ot M54.5 LOW BACK PAIN 04/25/2018 OLIVEIRA DO, KIM C Ot O24.4 10 GESTATIONAL DIABETES MELLITUS IN PREGNAN 04/25/2018 OLIVEIRA DO, KIM C Ot O26.8 93 OTH RELATED CONDITIONS, THIRD 04/25/2018 OLIVEIRA DO, KIM C Ot O41.03X0 OLIGOHYDRAMNIOS, THIRD TRIMESTER, NOT AP 04/25/2018 OLIVEIRA DO, KIM C Ot Z3A.3 9 39 WEEKS GESTATION OF 09/22/2019 OLIVEIRA DO, KIM C Ot Z36.8 9 ENCOUNTER FOR OTHER SPECIFIED 09/22/2019 OLIVEIRA DO, KIM C Ot Z3A.3 3 33 WEEKS GESTATION OF 09/22/2019 OLIVEIRA DO, KIM C Ot O24.4 10 GESTATIONAL DIABETES MELLITUS IN PREGNAN 09/22/2019 OLIVEIRA DO, KIM C Ot Z3A.3 8 38 WEEKS GESTATION OF 09/22/2019 OLIVEIRA DO, KIM C Ot O24.4 10 GESTATIONAL DIABETES MELLITUS IN PREGNAN 09/22/2019 OLIVEIRA DO, KIM C Ot Z3A.3 5 35 WEEKS GESTATION OF 09/22/2019 OLIVEIRA DO, KIM C Ot M54.5 LOW BACK PAIN 09/22/2019 OLIVEIRA DO, KIM C Ot O24.4 10 GESTATIONAL DIABETES MELLITUS IN PREGNAN 09/22/2019 OLIVEIRA DO, KIM C Ot O26.8 93 OTH RELATED CONDITIONS, THIRD 09/22/2019 OLIVEIRA DO, KIM C Ot O41.03X0 OLIGOHYDRAMNIOS, THIRD TRIMESTER, NOT AP 09/22/2019 OLIVEIRA DO, KIM C Ot Z3A.3 9 39 WEEKS GESTATION OF 09/23/2019 OLIVEIRA DO, KIM C Ot Z36.8 9 ENCOUNTER FOR OTHER SPECIFIED 09/23/2019 OLIVEIRA DO, KIM C Ot Z3A.3 3 33 WEEKS GESTATION OF 09/23/2019 OLIVEIRA DO, KIM C Ot O24.4 10 GESTATIONAL DIABETES MELLITUS IN PREGNAN 09/23/2019 OLIVEIRA DO, KMI C Ot Z3A.3 8 38 WEEKS GESTATION OF 09/23/2019 OLIVEIRA DO, KIM C Ot O24.4 10 GESTATIONAL DIABETES MELLITUS IN PREGNAN 09/23/2019 OLIVEIRA DO, KIM C Ot Z3A.3 5 35 WEEKS GESTATION OF 09/23/2019 OLIVEIRA DO, KIM C Ot M54.5 LOW BACK PAIN 09/23/2019 OLIVEIRA DO, KIM C Ot O24.4 10 GESTATIONAL DIABETES MELLITUS IN PREGNAN 09/23/2019 OLIVEIRA DO, KIM C Ot O26.8 93 OTH RELATED CONDITIONS, THIRD 09/23/2019 OLIVEIRA DO, KIM C Ot O41.03X0 OLIGOHYDRAMNIOS, THIRD TRIMESTER, NOT AP 09/23/2019 OLIVEIRA DO, KIM C Ot Z3A.3 9 39 WEEKS GESTATION OF 09/24/2019 OLIVEIRA DO, KIM C Ot Z36.8 9 ENCOUNTER FOR OTHER SPECIFIED 09/24/2019 OLIVEIRA DO, KIM C Ot Z3A.3 3 33 WEEKS GESTATION OF 09/24/2019 OLIVEIRA DO, KIM C Ot O24.4 10 GESTATIONAL DIABETES MELLITUS IN PREGNAN 09/24/2019 OILVEIRA DO, KIM C Ot Z3A.3 8 38 WEEKS GESTATION OF 09/24/2019 OLIVEIRA DO, KIM C Ot O24.4 10 GESTATIONAL DIABETES MELLITUS IN PREGNAN 09/24/2019 OLIVEIRA DO, KIM C Ot Z3A.3 5 35 WEEKS GESTATION OF 09/24/2019 OLIVEIRA DO, KIM C Ot M54.5 LOW BACK PAIN 09/24/2019 OLIVEIRA DO, KIM C Ot O24.4 10 GESTATIONAL DIABETES MELLITUS IN PREGNAN 09/24/2019 OLIVEIRA DO, KIM C Ot O26.8 93 OTH RELATED CONDITIONS, THIRD 09/24/2019 OLIVEIRA DO, KIM C Ot O41.03X0 OLIGOHYDRAMNIOS, THIRD TRIMESTER, NOT AP 09/24/2019 OLIVEIRA DO, KIM C Ot Z3A.3 9 39 WEEKS GESTATION OF 09/25/2019 KIM OLIVEIRA DO Ot N83.8 OTH NONINFLAMMATORY DISORD OF OVARY, FAL 09/25/2019 KIM OLIVEIRA DO Ot N91.2 AMENORRHEA, UNSPECIFIED 09/25/2019 KIM OLIVEIRA DO Ot T83.32XA DISPLACEMENT OF INTRAUTERINE CONTRACEPTI Procedures Code Description Performed By Per formed On [id number] DE LIVERY OF PRODUCTS OF CONCEPTION, EXTE 04/15/2018 [id number] IN TRODUCTION OF OTH HORMONE INTO PERIPH 04/15/2018 Results Test Result Range Complete urinalysis with reflex to cultu re - 04/15/18 07:50 Urine color determination YELLOW NRG Urine clarity determination SLIGHTLY CLOUDY NRG Urine pH measurement by test strip 5 5-9 Specific gravity of urine by test strip 1.025 1.016-1.022 Urine protein assay by test strip, semi-quantitative 2+ NEGATIVE Urine glucose detection by automated test strip NE GATIVE NEGATIVE Erythrocytes detection in urine sediment by light micr oscopy 1+ NEGATIVE Urine ketones detection by automated test strip 1+ NEGATIVE Urine nitrite detection by test strip NEGATIVE NEGATIVE Urine total bilirubin detection by test strip 1+ NEGATIVE Urine urobilinogen measurement by automated test strip (mass/volume) 4 mg/dL NORMAL Urine leukocyte esterase detection by dipstick 3+ NEGATIVE Automated urine sediment erythrocyte cou nt by microscopy (number/high power field) NONE NRG Automated urine sediment leukocyte count by microscopy (number/high power field) [HPF] NRG Bacteria detection in urine sediment by light microsco py TRACE NRG Squamous epithelial cells detection in u rine sediment by light microscopy 10-25 NRG Crystals detection in urine sediment by light microsco py PRESENT NRG Casts detection in urine sediment by light microscopy NONE NRG Mucus detection in urine sediment by light microscopy SMALL NRG Complete urinalysis with reflex to culture YES NRG Calcium oxalate crystals detection in ur ine sediment by light microscopy MODERATE NRG Bacterial urine culture - 04/15/18 07:50 Bacterial urine culture SEE REPORT NRG COLONY COUNT . NRG Complete blood count (CBC) with automate d white blood cell (WBC) differential - 04/15/18 08:16 Blood leukocytes automated count (number/volume) 10.7 10*3/uL 4.3-11.0 Blood erythrocytes automated count (number/volume) 4.01 10*6/uL 4.35-5.85 Venous blood hemoglobin measurement (mass/volume) 10.8 g/dL 11.5-16.0 Blood hematocrit (volume fraction) 32 % 35-52 Automated erythrocyte mean corpuscular volume 81 [ foz_us] 80-99 Automated erythrocyte mean corpuscular h emoglobin (mass per erythrocyte) 27 pg 25-34 Automated erythrocyte mean corpuscular h emoglobin concentration measurement (mass/volume) 33 g/dL 32-36 Automated erythrocyte distribution width ratio 14. 2 % 10.0- 14.5 Automated blood platelet count (count/volume) 415 10*3/uL 130-400 Automated blood platelet mean volume measurement 9.6 [foz_us] 7.4-10.4 Automated blood neutrophils/100 leukocytes 62 % 42-75 Automated blood lymphocytes/100 leukocytes 29 % 12-44 Blood monocytes/100 leukocytes 7 % 0-12 Automated blood eosinophils/100 leukocytes 2 % 0-10 Automated blood basophils/100 leukocytes 0 % 0-10 Blood neutrophils automated count (number/volume) 6.6 10*3 1.8-7.8 Blood lymphocytes automated count (number/volume) 3.1 10*3 1.0-4.0 Blood monocytes automated count (number/volume) 0. 8 10*3 0.0-1.0 Automated eosinophil count 0.2 10*3/uL 0 .0-0.3 Automated blood basophil count (count/volume) 0.0 10*3/uL 0.0-0.1 Serum or plasma glucose measurement (mas s/volume) - 04/15/18 08:16 Serum or plasma glucose measurement (mass/volume) 88 mg/dL 70-105 Blood type T Indirect antibody screen pa billy - 04/15/18 08:16 ABO+Rh group AP NRG Transfusion band number [id number] Blood group antibody screen NEGATIVE NR G Capillary blood glucose measurement by g lucometer (mass/volume) - 04/15/18 13:08 Capillary blood glucose measurement by glucometer (mas s/volume) 80 mg/dL 70-110 Complete urinalysis with reflex to cultu re - 04/15/18 13:15 Urine color determination YELLOW NRG Urine clarity determination CLEAR NR G Urine pH measurement by test strip 6 5-9 Specific gravity of urine by test strip 1.015 1.016-1.022 Urine protein assay by test strip, semi-quantitative NEGATIVE NEGATIVE Urine glucose detection by automated test strip NE GATIVE NEGATIVE Erythrocytes detection in urine sediment by light micr oscopy NEGATIVE NEGATIVE Urine ketones detection by automated test strip 3+ NEGATIVE Urine nitrite detection by test strip NEGATIVE NEGATIVE Urine total bilirubin detection by test strip NEGA TIVE NEGATIVE Urine urobilinogen measurement by automated test strip (mass/volume) 1 mg/dL NORMAL Urine leukocyte esterase detection by dipstick 1+ NEGATIVE Automated urine sediment erythrocyte cou nt by microscopy (number/high power field) NONE NRG Automated urine sediment leukocyte count by microscopy (number/high power field) [HPF] NRG Bacteria detection in urine sediment by light microsco py TRACE NRG Squamous epithelial cells detection in u rine sediment by light microscopy 2-5 NRG Crystals detection in urine sediment by light microsco py NONE NRG Casts detection in urine sediment by light microscopy NONE NRG Mucus detection in urine sediment by light microscopy MODERATE NRG Complete urinalysis with reflex to culture YES NRG Bacterial urine culture - 04/15/18 13:15 Bacterial urine culture NG NRG Capillary blood glucose measurement by g lucometer (mass/volume) - 04/16/18 05:49 Capillary blood glucose measurement by glucometer (mas s/volume) 84 mg/dL 70-110 Complete blood count (CBC) with automate d white blood cell (WBC) differential - 04/16/18 06:36 Blood leukocytes automated count (number/volume) 12.5 10*3/uL 4.3-11.0 Blood erythrocytes automated count (number/volume) 3.90 10*6/uL 4.35-5.85 Venous blood hemoglobin measurement (mass/volume) 10.5 g/dL 11.5-16.0 Blood hematocrit (volume fraction) 32 % 35-52 Automated erythrocyte mean corpuscular volume 81 [ foz_us] 80-99 Automated erythrocyte mean corpuscular h emoglobin (mass per erythrocyte) 27 pg 25-34 Automated erythrocyte mean corpuscular h emoglobin concentration measurement (mass/volume) 33 g/dL 32-36 Automated erythrocyte distribution width ratio 14. 5 % 10.0- 14.5 Automated blood platelet count (count/volume) 336 10*3/uL 130-400 Automated blood platelet mean volume measurement 9.3 [foz_us] 7.4-10.4 Automated blood neutrophils/100 leukocytes 68 % 42-75 Automated blood lymphocytes/100 leukocytes 25 % 12-44 Blood monocytes/100 leukocytes 6 % 0-12 Automated blood eosinophils/100 leukocytes 1 % 0-10 Automated blood basophils/100 leukocytes 0 % 0-10 Blood neutrophils automated count (number/volume) 8.5 10*3 1.8-7.8 Blood lymphocytes automated count (number/volume) 3.1 10*3 1.0-4.0 Blood monocytes automated count (number/volume) 0. 8 10*3 0.0-1.0 Automated eosinophil count 0.1 10*3/uL 0 .0-0.3 Automated blood basophil count (count/volume) 0.0 10*3/uL 0.0-0.1 Encounters ACCT No. Visit Date/Time Discharge Status Pt. Type Provider Facility Loc./Unit Complaint [id number] 03/20/2017 15:14:45 03/20/2017 23:59: 59 CLS Outpatient Rupali Carter [id number] 01/30/2017 18:33:02 01/30/2017 23:59: 59 CLS Outpatient TawannaRupali henriquez [id number] 01/03/2017 19:14:48 01/03/2017 23:59: 59 CLS Outpatient Rupali Trotter [id number] 08/09/2016 14:35:07 08/09/2016 23:59: 59 CLS Outpatient Jade Muse [id number] 05/23/2016 14:39:23 05/23/2016 23:59: 59 CLS Outpatient Dionisio Payton [id number] 02/02/2016 15:40:24 02/02/2016 23:59: 59 CLS Outpatient Rupali Carter [id number] 10/08/2015 12:05:43 10/08/2015 23:59: 59 CLS Outpatient Sirisha Alexander [id number] 10/07/2015 12:19:11 10/07/2015 23:59: 59 CLS Outpatient Sirisha Alexander [id number] 05/13/2015 15:14:04 05/13/2015 23:59: 59 CLS Outpatient Sirisha Alexander [id number] 04/15/2015 15:11:25 04/15/2015 23:59: 59 CLS Outpatient Sirisha Alexander [id number] 03/18/2015 15:35:54 03/18/2015 23:59: 59 CLS Outpatient Sirisha Alexander [id number] 02/18/2015 15:26:00 02/18/2015 23:59: 59 CLS Outpatient Sirisha Alexander [id number] 01/21/2015 15:57:27 01/21/2015 23:59: 59 CLS Outpatient Sirisha Alexander [id number] 01/05/2015 11:10:17 01/05/2015 23:59: 59 CLS Outpatient Rupali Carter [id number] 10/19/2014 22:31:22 10/19/2014 23:59: 59 CLS Outpatient Rupali Carter [id number] 07/14/2014 12:11:52 07/14/2014 23:59: 59 CLS Outpatient Xander Knox [id number] 06/25/2014 10:57:26 06/25/2014 23:59: 59 CLS Outpatient Xander Knox [id number] 06/01/2014 16:54:13 06/01/2014 23:59: 59 CLS Outpatient Rupali Carter [id number] 02/02/2014 08:55:40 02/02/2014 23:59: 59 CLS Outpatient Tata Dionisio [id number] 11/14/2013 10:33:31 11/14/2013 23:59: 59 CLS Outpatient Rupali Carter [id number] 09/24/2019 12:30:00 23:59:59 CLS Outpatient KIM OLIVEIRA DO [facility] RAD IUD STRINGS LOST,AMENOR BEEBTO [id number] 04/15/2018 07:46:00 019 15:36:00 DIS Inpatient KIM OLIVEIRA DO [facility] LDRP INDUCTION [id number] 04/10/2018 11:41:00 019 23:59:59 CLS Outpatient KIM OLIVEIRA DO [facility] RAD DIET CONTROLLED GDM IN THIRD TRIMESTER [id number] 04/01/2018 10:37:00 019 23:59:59 CLS Outpatient KIM OLIVEIRA DO [facility] RAD GDM [id number] 03/28/2018 09:35:00 019 23:59:59 CLS Outpatient KIM OLIVEIRA DO [facility] RAD DIET CONTROLLED GESTATI ONAL DIABETES MELLITUS [id number] 02/21/2018 09:54:00 018 23:59:59 CLS Outpatient KIM OLIVEIRA DO [facility] RAD 30 WEEKS GESTATION [id number] 04/15/2018 08:34:00 Document Registration
[2019-10-03] MEDS ORDERED: BUP/EPI 0.5% 1:200,000 (MARCAINE) 10ML VIAL IJ ONE ×2 (11:17)
[2019-10-03] MEDS ORDERED: D5 LR IV SOLUTION 1,000 ML IV SCH (13:49)
--- NOTE | 2019-10-03 13:49 | Operative Report ---
Operative Report Date of Procedure/Surgery Oct 03, 2019 Surgeon (s) KIM OLIVEIRA DO Agricultural Service Technician (s): NA Post-Operative Diagnosis Right ovarian dermoid cyst enteropelvic adhesions Procedure Performed robotic right ovarian cystectomy lysis of adhesions Description of Procedure Anesthesia Type: General Estimated blood loss (mL): minimal Specimen(s) collected/removed right ovarian cyst Findings of the Procedure Large right ovarian cystectomy, some leakage noted. Adhesions of the omentum to the ovary and the back of the uterus. Allergies and Home Medications Allergies Coded Allergies: No Known Drug Allergies (Unverified , 10/02/19) Home Medications No Active Prescriptions or Reported Meds Patient Home Medication List Home Medication List Reviewed: Yes KIM OLIVEIRA DO Oct 03, 2019 13:49
--- NOTE | 2019-10-03 13:52 | Discharge Inst-Women's Service ---
Discharge Inst-Women's Serv Depart Medication/Instructions New, Converted or Re-Newed RX: Other (transmitted and on charg) Final Diagnosis right ovarian dermoid cyst enteropelvic adhesions Problems Reviewed?: Yes Consults/Follow Up Additional Follow Up: Yes (1-2 weeks with Rachael) Activity Activity: Activity as Tolerated Driving Instructions: No Driving for 24 Hours NO SMOKING: NO SMOKING Nothing Inside Vagina: No Douching, No [place], No Tampons Diet Discharge Diet: No Restrictions Symptoms to Report to : Swelling Increased, Bleeding Excessive, Fever Over 101 Degrees F, Pain/Pressure in Jaw, Vaginal Bleeding Increase, Vaginal Discharge Foul For Any Problems or Questions: Contact Your Physician Skin/Wound Care Infection Signs and Symptoms: Increased Redness, Foul Odor of Wound, Increased Drainage, Skin Itchy or Has a Rash, Increased Swelling, Temperature Above 101 F Operative Area Clean and Dry: Keep Incision Clean/Dry, You May Remove Bandage (in 3 days) Stitches/[place]/Dermabond: Dermabond Bathing Instructions: KIM Slater DO Oct 03, 2019 13:52
[2019-10-03] MEDS ORDERED: OXYC5TAB96 PO (13:54)
[2019-10-03] MEDS ORDERED: IBUP-844 PO (13:54)
[2019-10-03] MEDS ORDERED: ACET-93 PO (13:54)
[2019-10-03] MEDS ORDERED: ACETAMINOPHEN 500 MG TAB (TYLENOL) PO PRN (14:00)
[2019-10-03] MEDS ORDERED: KETOROLAC 30 MG/ML VIAL IVP ONE (14:00)
[2019-10-03] MEDS ORDERED: ONDANSETRON 4 MG/2 ML (SDV) Z0FRAN IVP PRN ×2 (14:00→14:15)
[2019-10-03] MEDS ORDERED: morphine INJ 10 MG/ML 1ML (SYR OR VIAL) ONE (14:10)
[2019-10-03] MEDS ORDERED: morphine INJ 10 MG/ML 1ML (SYR OR VIAL) IVP ONE (14:15)
[2019-10-03] MEDS ORDERED: HYDROmorphone 2 MG/ML VIAL (DILAUDID) IV ONE (14:15)
[2019-10-03] MEDS ORDERED: MEPERIDINE (DEMEROL) INJ 50 MG/ML IVP ONE (14:15)
[2019-10-03] MEDS ORDERED: ONDA4TAB11 PO (14:16)
[2019-10-03] MEDS ORDERED: HYDROmorphone 2 MG/ML VIAL (DILAUDID) ONE (14:16)
--- NOTE | 2019-10-03 14:19 | Anesthesia-General Post-Op ---
General Patient Condition Mental Status/LOC: Same as Preop Cardiovascular: Satisfactory Nausea/Vomiting: Absent Respiratory: Satisfactory Pain: Controlled Complications: Absent Post Op Complications Complications None Follow Up Care/Instructions Patient Instructions None needed. Anesthesia/Patient Condition Patient Condition Patient is doing well, no complaints, stable vital signs, no apparent adverse anesthesia problems. No complications reported per nursing. DARWIN SHELTON CRNA Oct 03, 2019 14:18
[2019-10-03] MEDS ORDERED: KETOROLAC 30 MG/ML VIAL ONE (14:36)
[2019-10-03] MEDS ORDERED: IBUPROFEN 600 MG (MOTRIN) TAB PO SCH (18:00)
== END 2019-10-03 16:20 | disposition home or self-care (01) ==
LOC: SDC 09:32
PROVIDERS: ATTEND Obstetrics & Gynecology
DX: D39.11 Neoplasm of uncertain behavior of right ovary (principal); J45.909 Unspecified asthma, uncomplicated; E66.9 Obesity, unspecified; Z68.37 Body mass index [BMI] 37.0-37.9, adult; Z79.899 Other long term (current) drug therapy; Z79.51 Long term (current) use of inhaled steroids; Z87.891 Personal history of nicotine dependence; Z20.828 Contact with and (suspected) exposure to other viral communicable diseases
CPT/HCPCS: 58662; 84703; 85025; 86850; 86900; 86901; 87081; 88305; 88307; 88331; 88332; 94664 ×2; U0002; 36415; 87635

== ENCOUNTER → 2020-12-01 | Outpatient (CLI) | payer MEDICAID ==
[~2020-12-01] MED LIST changes: +ACET-93 PO; +ONDA4TAB11 PO; +OXC5T PO
--- NOTE | 2020-12-01 18:15 | Diagnostic Imaging Report ---
PROCEDURE: US Non-OB pelvis comp/trans. TECHNIQUE: Multiple real-time grayscale images were obtained of the pelvis in various projections endovaginally. Transabdominal imaging was also performed. INDICATION: Pelvic pain. Previous cyst removal. IUD since June 2018. FINDINGS: Uterus measures 6.2 x 3.8 x 5 cm. Endometrial stripe is 5 mm. IUD is present in the uterine cavity appearing in good position. The right ovary measures 2.4 x 1.8 x 1.5 cm. Left ovary measures 3.8 x 2.4 x 2.4 cm. There is a cyst in the left ovary measuring 2 x 1.4 cm which shows mild thickening of the wall. There is a trace of free fluid in the cul-de-sac. There is normal blood flow to both ovaries. IMPRESSION: 1. There is a slightly complex cyst in the left ovary with thickened wall. 2. IUD appears in good position. Dictated by: Dictated on workstation # [id number]
== END ==
LOC: RAD 15:15
PROVIDERS: ATTEND Obstetrics & Gynecology
DX: Z30.431 Encounter for routine checking of intrauterine contraceptive device (principal); N83.202 Unspecified ovarian cyst, left side
CPT/HCPCS: 76830; 76856